=== PATIENT | male | born 1995 | race African-American/Black ===

== ENCOUNTER 2017-08-12 16:17 | Emergency (ER) | payer MEDICAID, OTHER ==
[~2017-08-12] VITALS: Ht 160 cm; Wt 54.4 kg
--- NOTE | 2017-08-12 18:18 | ED Fall/Injury ---
General Chief Complaint: Head/Cervical Problems Stated Complaint: HEAD INJ/ODD BEHAVIOR Nursing Triage Note: Child fell and hit his head Tuesday night. Mother states his bahavior has been unusual the last few days. Hx of Doubowitz syndrome. Source: patient, other, caregiver Exam Limitations: clinical condition (MR) History of Present Illness Date Seen by Provider: Aug 12, 2017 Time Seen by Provider: 18:06 Initial Comments Patient is a very pleasant 21-year-old male with chronic MR who presents with 2 of his caregivers a chief complaint that 5-6 days ago he fell down some stairs and he attends to have trouble with stairs in the past and was left unattended for just a few minutes and when they found him he had a large knot on the back of his head. They talked to their doctor's and were doing a period of observation with him. He had no nausea vomiting loss of consciousness or bleeding from anywhere. However over the next couple days the caregivers have noticed the patient has had more of his behaviors which include not sleeping as well and screaming out loud during the day as well as at night. These are his chronic behaviors that just seemed to be ant up whereas her lately the caregiver says he's been fairly mild. Patient is nonverbal for the most part but will sometimes answer yes or no. He does indicate yes when asked if his head is hurting and the caregiver notes he does still have a remnant of the hematoma on his occiput. The caregiver reports she has been applying ice packs for the first couple days and letting him sleep and rest home and giving him ibuprofen once or twice a day. She is worried about his behaviors and whether they're related to his recent head injury so they called the psychiatrist on the phone and they recommended increasing his Zyprexa from 5 mg daily at bedtime to 10 mg to help with his sleep. They have an appointment next week with the primary care physician Dr. Randle. Constitutional: No chills, No diaphoresis, No fever, No malaise, No weight gain , No weight loss Eyes: Denies Blindness, Denies Photophobia, Denies Glasses Ears, Nose, Mouth, Throat: denies ear discharge, denies nose discharge, denies epistaxis Respiratory: No cough, No short of breath, No wheezing Cardiovascular: No chest pain, No syncope Gastrointestinal: No constipation, No diarrhea, No vomiting Genitourinary: No discharge, No dysuria, No frequency, No hematuria Skin: see HPI Past Zmuxlgn-Agpnls-Argjos Hx Patient Social History Alcohol Use: Denies Use Recreational Drug Use: No Smoking Status: Never a Smoker Recent Foreign Travel: No Contact w/Someone Who Travel: No Recent Infectious Disease Expo: No Physical Exam Vital Signs Vital Sign - Last 12Hours 08/12/17 16:56 Temp 97.2 Pulse 90 Resp 20 B/P (MAP) 118/72 (87) Pulse Ox 95 O2 Delivery Room Air Capillary Refill : Less Than 3 Seconds General Appearance: WD/WN, no apparent distress HEENT: PERRL/EOMI, normal ENT inspection, TMs normal, pharynx normal, other ( negative for raccoon eyes, chaney sign or hemotympanum. He has a small remnant of a hematoma that is about gone on his occiput midline but is mildly tender to palpation.) Neck: non-tender, full range of motion, supple, normal inspection Cardiovascular: normal peripheral pulses, regular rate, rhythm, no edema Respiratory: chest non-tender, lungs clear, normal breath sounds Peripheral Pulses: 2+ Radial Pulses (R), 2+ Radial Pulses (L) Gastrointestinal: non tender, soft Back: normal inspection, no vertebral tenderness Neurologic/Psychiatric: no motor/sensory deficits, alert, normal mood/affect Skin: normal color, warm/dry Amilcar Coma Score Best Eye Response: (4) Open Spontaneously Best Verbal Response: (2) Incomprehsible Sounds (at baseline) Best Motor Response: (6) Obeys Commands Amilcar Total: 12 (this is his baseline per caregivers) Progress/Results/Core Measures Results/Orders Vital Signs/I&O Vital Sign - Last 12Hours 08/12/17 16:56 Temp 97.2 Pulse 90 Resp 20 B/P (MAP) 118/72 (87) Pulse Ox 95 O2 Delivery Room Air Blood Pressure Mean: 87 Progress Note : Time: 18:18 Progress Note Patient is at baseline with no loss of consciousness nausea vomiting. He is also at baseline has incontinence of bowel bladder. He is having no fevers or adventitious vital signs so it's likely that his increased behaviors may be related to headache secondary to his hematoma and recent fall. When I recommend they use Naprosyn [id number] with Tylenol as needed and see if that doesn' t work for him for the next week in terms of reducing the frequency or severity of his behaviors. If that is not working then they can go ahead and start Zyprexa at the higher dose and they will have follow-up appointment Tuesday of next week with their primary care physician for further management. We discussed concussion management. He is well past the observation period for head injury for possibility of a clinically significant intracranial bleed and not having any other neurologic symptoms that I can elicit on our exam. Departure Impression Impression: Primary Impression: Fall (on) (from) other stairs and steps, initial encounter Additional Impressions: Traumatic hematoma of scalp Qualified Codes: S00.03XA - Contusion of scalp, initial encounter Concussion Qualified Codes: S06.0X0A - Concussion without loss of consciousness, initial encounter Behavior disturbance Disposition: 01 HOME, SELF-CARE Condition: Stable Departure-Patient Inst. Decision time for Depature: 18:20 Referrals: ALEJO RANDLE DO (PCP/Family) Primary Care Physician Patient Instructions: Concussion, Adult (DC) Add. Discharge Instructions: For the next week use Naprosyn 2 capsules twice a day [id number] and then if he's having breakthrough evidence of a headache such as increased behaviors, vomiting, dizziness or unsteady belly on his feet give him Tylenol 1000 mg. If he has nausea give him one tablet of Zofran every 6 hours as needed. Keep your follow-up appointment next week with your primary care physician for further evaluation. If his symptoms get worse or if he has decreased level of consciousness or wake up or back right ring him back to the ER immediately. When he is back to his baseline and not on any extra medications such as the Naprosyn or Tylenol or Zofran then he is concussion free. For the period that he has a concussion however he should avoid head trauma as much as possible. If he does have any symptoms of a concussion after you have treated him with appropriate medication then you should also let him have something to drink and go lay down and get some sleep for a few hours. All discharge instructions reviewed with patient and/or family. Voiced understanding. Scripts Ondansetron (Ondansetron Odt) 4 Mg Tab.rapdis 4 MG PO Q6H Y for NAUSEA/VOMITING, #8 TAB 0 Refills Prov: ROSA MONTOYA 08/12/17 Copy Copies To 1: ALEJO RANDLE TITUS J Aug 12, 2017 18:18
[2017-08-12] MEDS ORDERED: ONDA4TAB11 PO (18:24)
[2017-08-12 18:33] VITALS: BP 116/74
== END 2017-08-12 18:33 | disposition home or self-care (01) ==
LOC: ER 16:20
DX: S06.0X0A Concussion without loss of consciousness, initial encounter (principal); W10.9XXA Fall (on) (from) unspecified stairs and steps, initial encounter
CPT/HCPCS: 99282

== ENCOUNTER 2017-10-10 16:51 | Emergency (ER) | payer MEDICAID ==
[~2017-10-10] VITALS: Ht 154.9 cm; Wt 49.9 kg
[~2017-10-10 16:51] MED LIST: ONDA4TAB11 PO
[2017-10-10] MEDS ORDERED: ESCI5TAB12 (17:39)
[2017-10-10] MEDS ORDERED: OLAN15TA19 (17:39)
[2017-10-10] MEDS ORDERED: METF500T4 (17:39)
[2017-10-10] MEDS ORDERED: LEVO125T6 (17:39)
[2017-10-10] MEDS ORDERED: CARB100T6 (17:39)
[2017-10-10] MEDS ORDERED: TRAZ-28 (17:39)
[2017-10-10] MEDS ORDERED: VALP250C3 (17:39)
--- NOTE | 2017-10-10 18:19 | ED GU-Male ---
General Chief Complaint: General Problems/Pain Stated Complaint: HAS NOT USED BATHROOM ALL DAY/ NO APPETITE Nursing Triage Note: AMBULATED TO TRIAGE WITH COUSIN/[employer]AYNE [employer]IDER WORKER. COUSIN STATES HE HAS NOT URINATED SINCE LAST NOC IN THE MIDDLE OF THE NOC. HAS NOT ATE TODAY BUT HAS BEEN DRINKING FLUIDS WITHOUT DIFFICULTY. Source: patient Exam Limitations: clinical condition (MR) History of Present Illness Date Seen by Provider: Oct 10, 2017 Time Seen by Provider: 18:07 Initial Comments Patient presents to the ER by private conveyance with his cousin/Wyatt worker. Patient is fairly nonverbal and known to this provider from previous encounters. His cousin gives a history that the patient has been unable to urinate for the last day. This is unlike him and he is usually incontinent using his briefs couple times a day. He says they've been giving the patient water, flavored drinks etc. and the patient's been drinking them but has not been able to urinate. He also says the patient has a chronic history of constipation for which she uses MiraLAX and some kind of a laxative tablet daily as well as they've had to use enemas in the past. He thinks the last time the patient had a large bowel movement was last week sometime. Says the patient does not really tell them if he's ever and pain with a no is not been subjectively feverish, chills, sweats, nausea or vomiting. He has no history of abdominal surgeries or surgeries. No history of kidney stones. Allergies and Home Medications Allergies Coded Allergies: No Known Drug Allergies (Unverified , 10/10/17) Patient Home Medication List Home Medication List Reviewed: Yes Constitutional: see HPI (difficult to obtain a complete review of systems secondary to nonverbal status of the patient.), No chills, No diaphoresis, No fever EENTM: No hoarseness, No nose congestion Respiratory: No cough, No hemoptysis Gastrointestinal: No abdominal pain, constipation (chronic), No nausea Genitourinary: denies discharge, denies hematuria Skin: No pruritus, No rash Past Jhpjxzx-Xojddu-Tkclyc Hx Patient Social History Alcohol Use: Denies Use Recreational Drug Use: No Smoking Status: Never a Smoker Recent Foreign Travel: No Contact w/Someone Who Travel: No Recent Infectious Disease Expo: No Recent Hopitalizations: No Surgeries History of Surgeries: No Respiratory History of Respiratory Disorde: No Cardiovascular History of Cardiac Disorders: Yes Cardiac Disorders: Hypertension Neurological History of Neurological Disord: Yes (MR) Genitourinary History of Genitourinary Disor: No Gastrointestinal History of Gastrointestinal Di: No Musculoskeletal History of Musculoskeletal Dis: No Endocrine History of Endocrine Disorders: Yes Endocrine Disorders: Diabetes, Insulin dep Cancer History of Cancer: No Psychosocial History of Psychiatric Problem: No Integumentary History of Skin or Integumenta: No Physical Exam Vital Signs Vital Signs - First Documented 10/10/17 17:35 Temp 96.8 Pulse 83 Resp 18 B/P (MAP) 114/67 (83) Pulse Ox 97 Capillary Refill : Less Than 3 Seconds General Appearance: WD/WN, no apparent distress HEENT: PERRL/EOMI, normal ENT inspection, pharynx normal (oropharynx is mildly dry) Neck: non-tender, normal inspection Cardiovascular: normal peripheral pulses, regular rate, rhythm, no edema, no murmur Respiratory: chest non-tender, lungs clear, normal breath sounds, no respiratory distress, no accessory muscle use Gastrointestinal: normal bowel sounds, soft, no organomegaly, No distended, tenderness (mild tenderness in the suprapubic region), other (no palpable bladder. Bowels are palpable and full but not distended.) Back: normal inspection, no CVA tenderness, no vertebral tenderness Extremities: non-tender, normal capillary refill Neurologic/Psychiatric: alert, normal mood/affect Skin: normal color, warm/dry Progress/Results/Core Measures Suspected Sepsis Recent Fever Within 48 Hours: No Infection Criteria Present: None New/Unexplained Altered Menta: No Sepsis Screen: No Definite Risk Sepsis Diagnosis: SIRS Temperature:96.8 Pulse: 83 Respiratory Rate: 18 Blood Pressure 114 /67 Mean: 83 Results/Orders Lab Results Laboratory Tests Test 10/10/17 18:30 Range/Units Urine Color YELLOW Urine Clarity CLEAR Urine pH 7 5-9 Urine Specific [place] 1.010 L 1.016-1.022 Urine Protein NEGATIVE NEGATIVE Urine Glucose (UA) 1+ H NEGATIVE Urine Ketones 1+ H NEGATIVE Urine Nitrite NEGATIVE NEGATIVE Urine Bilirubin NEGATIVE NEGATIVE Urine Urobilinogen 1 NORMAL MG/DL Urine Leukocyte Esterase 1+ H NEGATIVE Urine RBC (Auto) NEGATIVE NEGATIVE Urine RBC NONE /HPF Urine WBC 0-2 /HPF Urine Squamous Epithelial Cells 0-2 /HPF Urine Crystals NONE /LPF Urine Bacteria NONE /HPF Urine Casts NONE /LPF Urine Mucus NEGATIVE /LPF Urine Culture Indicated NO My Orders Orders - ROSA MONTOYA Straight Cath For Spec.-Adult (10/10/17 18:13) Ua Culture If Indicated (10/10/17 18:13) Abdomen/Kub 1view (10/10/17 18:21) Vital Signs/I&O Vital Sign - Last 12Hours 10/10/17 17:35 Temp 96.8 Pulse 83 Resp 18 B/P (MAP) 114/67 (83) Pulse Ox 97 Capillary Refill : Less Than 3 Seconds Blood Pressure Mean: 83 Progress Note #1: Time: 18:19 Progress Note Patient seems to be using a lot of laxatives at baseline with not a lot of success having bowel movements the last few days. It's possible he is gotten dehydrated. Urinary tract infection is also possible. He is not showing any evidence of systemic infection such as fevers, tachycardia or dysuria. He has however sensitive over his suprapubic region. We discussed using a sound versus just doing it in and out to capture urine sample and did be more advantage to getting a urine sample and letting him urinate and his brief. We will also tell us how much urine is retained in the bladder if any at all. We'll encourage him to continue drinking and he has a bottle in his hand that is empty in the ER. We 'll also get a flat plate look at his bowels. Progress Note #2: Time: 19:13 Progress Note Communicated the findings of moderate constipation and patient's spontaneous urinating to the mother over the phone and we recommended that they increase the MiraLAX over the next week and follow-up with primary care physician as needed. She is okay with this plan. They do have some enemas but they do need a refill on the MiraLAX so we will send that up to [facility]. Diagnostic Imaging Diagonstic Imaging: Xray Plain Films/CT/US/NM/MRI: abdomen (1v) Comments [facility] [place], [place] NAME: LAURA DE LA CRUZ [facility] REC#: [id number] PT STATUS: REG ER : 1995 PHYSICIAN: ROSA MONTOYA MD ADMIT DATE: 10/10/17/ER Draft Date of Exam:10/10/17 ABDOMEN/KUB 1VIEW INDICATION: Abdominal pain. FINDINGS: There is a moderate amount of retained fecal material likely reflecting some degree of constipation. Bowel gas pattern is otherwise nonspecific. There are no abnormal abdominal calcifications. The osseous structures are unremarkable. IMPRESSION: Moderate amount of retained fecal material likely reflecting some degree of constipation, otherwise nonspecific bowel gas pattern. Dictated on workstation # [id number] Dict: 10/10/17 1855 Trans: 10/10/17 185 TREMAINE [id number] Interpreted by: NIKKI OH MD Electronically signed by: Reviewed: Reviewed by Me Departure Impression Impression: Primary Impression: Constipation Qualified Codes: K59.04 - Chronic idiopathic constipation Disposition: HOME, SELF-CARE Condition: Improved Departure-Patient Inst. Decision time for Depature: 19:14 Referrals: ALEJO ARNDLE DO (PCP/Family) Primary Care Physician Patient Instructions: Constipation, Adult (DC) Add. Discharge Instructions: Increase your MiraLAX dose by up to 4 times a day. One capful of the powder in 8 ounces of whatever he wants to drink. Avoid sugary drinks such as soda, juice. Use sugar-free things like crystallite, water, tea. You can also use an enema today and if you're not having good effort to get him to have plenty of bowel movements you can have him follow-up with the primary care physician for other ideas for his management of constipation. All discharge instructions reviewed with patient and/or family. Voiced understanding. Scripts Polyethylene Glycol 3350 (Miralax) 17 Gm Powd.pack 17 GM PO QID Y for CONSTIPATION-1ST LINE, #1 EACH 0 Refills Prov: ROSA MONTOYA 10/10/17 Copy Copies To 1: ALEJO RANDLE TITUS J Oct 10, 2017 18:19
[2017-10-10 18:38] LABS: BILIRUBIN,URINE NEGATIVE (NEGATIVE); CLARITY,URINE CLEAR; COLOR,URINE YELLOW; GLUCOSE, URINE (UA) 1+ (NEGATIVE); KETONES,URINE 1+ (NEGATIVE); LEUKOCYTE ESTERASE ,URINE 1+ (NEGATIVE); NITRITE,URINE NEGATIVE (NEGATIVE); PH,URINE 7 (5-9); PROTEIN,URINE NEGATIVE (NEGATIVE); UROBILINOGEN,URINE 1 MG/DL (NORMAL)
[2017-10-10 18:46] LABS: SQUAMOUS EPITHELIAL CELL,UR 0-2 /HPF; WBC,URINE 0-2 /HPF
--- NOTE | 2017-10-10 18:57 | Diagnostic Imaging Report ---
INDICATION: Abdominal pain. FINDINGS: There is a moderate amount of retained fecal material likely reflecting some degree of constipation. Bowel gas pattern is otherwise nonspecific. There are no abnormal abdominal calcifications. The osseous structures are unremarkable. IMPRESSION: Moderate amount of retained fecal material likely reflecting some degree of constipation, otherwise nonspecific bowel gas pattern. Dictated by: Dictated on workstation # [id number]
[2017-10-10] MEDS ORDERED: POLY17PO6 PO (19:16)
[2017-10-10 19:22] VITALS: BP 116/71
== END 2017-10-10 19:20 | disposition home or self-care (01) ==
LOC: EDUNIT# 16:51 → ER 16:52
DX: K59.09 Other constipation (principal); E11.9 Type 2 diabetes mellitus without complications; I10 Essential (primary) hypertension; Z86.59 Personal history of other mental and behavioral disorders
CPT/HCPCS: 74018; 81000; 99283

== ENCOUNTER → 2018-08-04 | Outpatient (CLI) | payer MEDICAID ==
[~2018-08-04] MED LIST changes: +CARB100T6; +ESCI5TAB12; +LEVO125T6; +METF-397; +OLAN15TA19; +POLY17PO6 PO; +TRAZ-189; +VALP250C3
--- NOTE | 2018-08-04 11:24 | Diagnostic Imaging Report ---
INDICATION: Left elbow swelling. TIME OF EXAMINATION: 10:22 AM. TECHNIQUE: Three views of the left elbow were obtained. FINDINGS: The radial head appears to show slight posterior subluxation in relation to the capitellum on the lateral view. No phill dislocation is seen. No elbow joint effusion is identified. There is some mild soft tissue swelling posteriorly. No fracture is seen. IMPRESSION: There are findings suggestive of minimal radial head subluxation posteriorly as well as posterior soft tissue swelling. No other abnormality is detected. Dictated by: Dictated on workstation # [id number]
== END ==
LOC: RAD 09:34
PROVIDERS: ATTEND Family Medicine
DX: S59.902A Unspecified injury of left elbow, initial encounter (principal)
CPT/HCPCS: 73080

== ENCOUNTER → 2018-08-17 | Outpatient (CLI) | payer MEDICAID ==
--- NOTE | 2018-08-17 17:38 | Diagnostic Imaging Report ---
INDICATION: Left elbow pain. FINDINGS: Three views of left elbow show no fracture, dislocation or pathologic effusion. IMPRESSION: Negative left elbow. Dictated by: Dictated on workstation # [id number]
== END ==
LOC: RAD 17:15
PROVIDERS: ATTEND Family Medicine
DX: M25.422 Effusion, left elbow (principal)
CPT/HCPCS: 73080

== ENCOUNTER 2018-10-06 20:46 | Emergency (ER) | payer MEDICAID ==
[~2018-10-06] VITALS: Ht 154.9 cm; Wt 54.4 kg
--- NOTE | 2018-10-06 21:12 | ED Upper Extremity ---
General Chief Complaint: Upper Extremity Stated Complaint: ARM SWELLING Nursing Triage Note: right upper arm swelling, no known injury Nursing Sepsis Screen: No Definite Risk Source: patient, family Exam Limitations: no limitations History of Present Illness Date Seen by Provider: Oct 06, 2018 Time Seen by Provider: 21:10 Initial Comments This developmentally disabled gentleman comes to the emergency room by mother with reports of right arm swelling since July without known injury. He's had a couple of x-rays without finding. He's tried around of antibiotics but again without any improvement. No fevers. Onset: just prior to arrival Severity: moderate Pain/Injury Location: right elbow Method of Injury: unknown Modifying Factors: Worse With Movement Allergies and Home Medications Allergies Coded Allergies: No Known Drug Allergies (Unverified , 10/10/17) Home Medications Polyethylene Glycol 3350 17 Gm Powd.pack, 17 GM PO QID PRN for CONSTIPATION-1ST LINE Prescribed by: ROSA MONTOYA on 10/10/17 191 Patient Home Medication List Home Medication List Reviewed: Yes Review of Systems Constitutional: see HPI; No chills, No fever EENTM: see HPI Respiratory: no symptoms reported Cardiovascular: no symptoms reported Genitourinary: no symptoms reported Musculoskeletal: see HPI Skin: see HPI Psychiatric/Neurological: No Symptoms Reported Past Zfdntmm-Flpvgd-Udzenh Hx Patient Social History Alcohol Use: Denies Use Recreational Drug Use: No Smoking Status: Never a Smoker 2nd Hand Smoke Exposure: No Recent Foreign Travel: No Contact w/Someone Who Travel: No Recent Infectious Disease Expo: No Recent Hopitalizations: No Immunizations Up To Date Tetanus Booster (TDap): Unknown Seasonal Allergies Seasonal Allergies: No Past Medical History Surgeries: No Respiratory: No Cardiac: Yes Hypertension Neurological: Yes (MR) Seizure Disorder Genitourinary: No Gastrointestinal: No Musculoskeletal: No Endocrine: Yes Diabetes, Insulin dep HEENT: No Cancer: No Psychosocial: No Integumentary: No Blood Disorders: No Physical Exam Vital Signs Vital Signs - First Documented 10/06/18 20:52 Temp 97.1 Pulse 83 Resp 18 B/P (MAP) 135/91 (106) Pulse Ox 98 O2 Delivery Room Air Capillary Refill : Less Than 3 Seconds Height, Weight, BMI Height: 5'1.00" Weight: 120lbs. oz. 54.133700xw; BMI Method:Stated General Appearance: WD/WN, no apparent distress HEENT: PERRL/EOMI, normal ENT inspection Respiratory: no respiratory distress, no accessory muscle use Shoulder: normal inspection, non-tender Elbow/Forearm: Right, soft tissue tenderness (does extend and flex the arm at the elbow and he is using the arm to hold and drink a bottle of Diet Coke.), swelling Wrist: Yes normal inspection, Yes non-tender Hand: normal inspection, non-tender Neurologic/Psychiatric: alert, normal mood/affect, oriented x 3 Skin: normal color, warm/dry Progress/Results/Core Measures Results/Orders Lab Results Laboratory Tests Test 10/06/18 21:27 Range/Units White Blood Count 11.3 H 4.3-11.0 10^3/uL Red Blood Count 3.31 L 4.35-5.85 10^6/uL Hemoglobin 11.1 L 13.3-17.7 G/DL Hematocrit 33 L 40-54 % Mean Corpuscular Volume 99 80-99 FL Mean Corpuscular Hemoglobin 34 25-34 PG Mean Corpuscular Hemoglobin Concent 34 32-36 G/DL Red Cell Distribution Width 12.6 10.0-14.5 % Platelet Count 459 H 130-400 10^3/uL Mean Platelet Volume 8.5 7.4-10.4 FL Neutrophils (%) (Auto) 47 42-75 % Lymphocytes (%) (Auto) 35 12-44 % Monocytes (%) (Auto) 17 H 0-12 % Eosinophils (%) (Auto) 1 0-10 % Basophils (%) (Auto) 0 0-10 % Neutrophils # (Auto) 5.3 1.8-7.8 X 10^3 Lymphocytes # (Auto) 3.9 1.0-4.0 X 10^3 Monocytes # (Auto) 1.9 H 0.0-1.0 X 10^3 Eosinophils # (Auto) 0.2 0.0-0.3 10^3/uL Basophils # (Auto) 0.0 0.0-0.1 10^3/uL D-Dimer 1.87 H 0.00-0.49 UG/ML My Orders Orders - RIP GARCIA APRN Hydrocodone/Apap 5/325 Tablet (Lortab 5 (10/06/18 21:15) Cbc With Automated Diff (10/06/18 21:06) Comprehensive Metabolic Panel (10/06/18 21:06) Erythrocyte Sedimentation Rate (10/06/18 21:06) Hs C Reactive Protein (10/06/18 21:06) Fibrin Degradation Products (10/06/18 21:06) Medications Given in ED Current Medications Medications Dose Ordered Sig/Celetse Route Start Time Stop Time Status Last Admin Dose Admin Acetaminophen/ Hydrocodone Bitart 1 tab ONCE ONCE PO 10/06/18 21:15 10/06/18 21:16 DC 10/06/18 21:40 1 TAB Vital Signs/I&O 10/06/18 20:52 Temp 97.1 Pulse 83 Resp 18 B/P (MAP) 135/91 (106) Pulse Ox 98 O2 Delivery Room Air Blood Pressure Mean: 106 Departure Communication (Admissions) 2413-I will prescribe an antibiotic. Given the elevated d-dimer I will have him return to the emergency room tomorrow to obtain an ultrasound venous right upper extremity. I will not empirically place him on anticoagulation without definitive diagnosis of deep vein thrombosis due to his behavioral disorders and possibility of injury resulting in significant bleeding. He should return to the emergency room tomorrow for venous right upper extremity ultrasound. Impression Primary Impression: Swelling of right elbow Disposition: HOME, SELF-CARE Condition: Stable Departure-Patient Inst. Decision time for Depature: 21:51 Referrals: ALEJO RANDLE DO (PCP/Family) Primary Care Physician Patient Instructions: NO INSTRUCTIONS GIVEN Add. Discharge Instructions: 1. Return to ER for any concerns 2. Follow-up with your doctor next week 3. Antibiotics as directed All discharge instructions reviewed with patient and/ or family. Voiced understanding. Scripts Amoxicillin/Potassium Clav (Augmentin 875-125 Tablet) 1 Each Tablet 1 EACH PO BID, #20 TAB Prov: RIP GARCIA APRN 10/06/18 RIP GARCIA APRN Oct 06, 2018 21:12
[2018-10-06] MEDS ORDERED: HYDROcodone/APAP 5 MG/325 MG (LORTAB) TAB PO ONE (21:15)
[2018-10-06 21:32] LABS: BASOPHILS % (AUTO) 0 % (0-10); EOSINOPHILS # (AUTO) 0.2 10^3/uL (0.0-0.3); EOSINOPHILS % (AUTO) 1 % (0-10); HEMATOCRIT 33 % (40-54); HEMOGLOBIN 11.1 G/DL (13.3-17.7); LYMPHOCYTES # (AUTO) 3.9 X 10^3 (1.0-4.0); LYMPHOCYTES % (AUTO) 35 % (12-44); MEAN CORPUSCULAR HEMOGLOBIN 34 PG (25-34); MEAN CORPUSCULAR HGB CONC 34 G/DL (32-36); MEAN CORPUSCULAR VOLUME 99 FL (80-99); MEAN PLATELET VOLUME 8.5 FL (7.4-10.4); MONOCYTES # (AUTO) 1.9 X 10^3 (0.0-1.0); MONOCYTES % (AUTO) 17 % (0-12); NEUTROPHILS # (AUTO) 5.3 X 10^3 (1.8-7.8); NEUTROPHILS % (AUTO) 47 % (42-75); PLATELET COUNT 459 10^3/uL (130-400); RED CELL DISTRIBUTION WIDTH 12.6 % (10.0-14.5); WHITE BLOOD COUNT 11.3 10^3/uL (4.3-11.0)
[2018-10-06 21:51] LABS: ALANINE AMINOTRANSFERASE 25 U/L (0-55); ALBUMIN 3.8 GM/DL (3.2-4.5); ALKALINE PHOSPHATASE 184 U/L (40-136); BILIRUBIN,TOTAL 0.3 MG/DL (0.1-1.0); BUN/CREATININE RATIO 13; CALCIUM 9.2 MG/DL (8.5-10.1); CARBON DIOXIDE 27 MMOL/L (21-32); CHLORIDE 102 MMOL/L (98-107); CREATININE SERUM 0.85 MG/DL (0.60-1.30); GFR ESTIMATED > 60; GLUCOSE 133 MG/DL (70-105); POTASSIUM 4.1 MMOL/L (3.6-5.0); SODIUM 140 MMOL/L (135-145)
[2018-10-06] MEDS ORDERED: AMOX-358 PO (21:52)
[2018-10-06 21:56] VITALS: BP 135/91
[2018-10-06 21:59] LABS: ERYTHROCYTE SEDIMENTATION RATE 68 MM/HR (0-15)
== END 2018-10-06 22:06 | disposition home or self-care (01) ==
LOC: EDUNIT# 20:46 → ER 20:47
DX: M25.421 Effusion, right elbow (principal); I10 Essential (primary) hypertension; G40.909 Epilepsy, unspecified, not intractable, without status epilepticus; E11.9 Type 2 diabetes mellitus without complications
CPT/HCPCS: 36415; 80053; 85025; 85379; 85652; 86141; 99283

== ENCOUNTER → 2018-10-08 | Outpatient (CLI) | payer MEDICAID ==
[~2018-10-08] MED LIST changes: +AMOX-358 PO
--- NOTE | 2018-10-08 11:39 | Diagnostic Imaging Report ---
INDICATION: Right forearm pain. COMPARISON: None. FINDINGS: Two views of the right forearm demonstrate no obvious fracture or dislocation. Soft tissue swelling is present. There is no underlying joint effusion or foreign body. IMPRESSION: No fracture or dislocation. Dictated by: Dictated on workstation # [id number]
--- NOTE | 2018-10-08 12:05 | Diagnostic Imaging Report ---
INDICATION: Right elbow pain and swelling COMPARISON: None FINDINGS: Two views of the right elbow demonstrate no obvious fracture or dislocation. No bony erosion is seen. There is no joint effusion. IMPRESSION: No fracture or dislocation Dictated by: Dictated on workstation # [id number]
== END ==
LOC: RAD 10:48
PROVIDERS: ATTEND Family Medicine
DX: M25.421 Effusion, right elbow (principal); M79.631 Pain in right forearm
CPT/HCPCS: 73080; 73090

== ENCOUNTER 2019-01-13 21:57 | Emergency (ER) | payer MEDICAID ==
[~2019-01-13] VITALS: Ht 154.9 cm; Wt 68.0 kg
[~2019-01-13 21:57] MED LIST changes: -TRAZ-189; +TRAZ-222
--- NOTE | 2019-01-13 22:28 | ED Head Injury ---
General Chief Complaint: Trauma-Non Activation Stated Complaint: FELL AND HIT FACE Nursing Triage Note: fell into tv stand and hit forehead and bridge of nosecausing laceration Source: patient, family (mother) Exam Limitations: no limitations History of Present Illness Date Seen by Provider: Jan 13, 2019 Time Seen by Provider: 22:05 Initial Comments 23-year-old patient presents to the emergency room for complaint of laceration to the nose and forehead after falling into a TV stand. Mother denies patient losing consciousness, changes in behavior, or vomiting. History difficult d/t patient being MR and having schizophrenia. Location Injury Occurred: home Occurred: just prior to arrival Method of Injury: fell Pain/Injuries: laceration to the forehead and nose Loss of Consciousness: no loss of consciousness Allergies and Home Medications Allergies Coded Allergies: No Known Drug Allergies (Unverified , 01/13/19) Home Medications Amoxicillin/Potassium Clav 1 Each Tablet, 1 EACH PO BID Prescribed by: RIP GARCIA on 10/06/182151 Polyethylene Glycol 3350 17 Gm Powd.pack, 17 GM PO QID PRN for CONSTIPATION-1ST LINE Prescribed by: ROSA MONTOYA on 10/10/17 1916 Patient Home Medication List Home Medication List Reviewed: Yes Review of Systems Review of Systems Constitutional: no symptoms reported Eyes: No Symptoms Reported Ears, Nose, Mouth, Throat: see HPI Gastrointestinal: No vomiting Musculoskeletal: no symptoms reported Skin: see HPI unable to obtain ROS from patient d/t MR and schizophrenia. ROS by mother. All Other Systems Reviewed Negative Unless Noted: Yes (Negative excepted noted.) Past Eouncof-Bumtdx-Syeulv Hx Past Med/Social Hx: Reviewed Nursing Past Med/Soc Hx Patient Social History 2nd Hand Smoke Exposure: No Recent Foreign Travel: No Contact w/Someone Who Travel: No Recent Hopitalizations: No Immunizations Up To Date Tetanus Booster (TDap): Unknown Seasonal Allergies Seasonal Allergies: No Past Medical History Surgeries: No Respiratory: No Cardiac: Yes Hypertension Neurological: Yes (MR) Seizure Disorder Genitourinary: No Gastrointestinal: No Musculoskeletal: No Endocrine: Yes Diabetes, Insulin dep HEENT: No Cancer: No Psychosocial: No Integumentary: No Blood Disorders: No Family Medical History Reviewed Nursing Family Hx No Pertinent Family Hx Physical Exam Vital Signs Vital Signs - First Documented Capillary Refill : Height, Weight, BMI Height: 5'1.00" Weight: 120lbs. oz. [id number]; BMI Method:Stated Progress/Results/Core Measures Results/Orders Vital Signs/I&O 01/13/19 01/13/19 22:05 22:05 Temp 96.7 96.7 Pulse 93 93 Resp 20 20 B/P (MAP) 159/120 (133) 159/120 (133) Pulse Ox 94 94 Departure Impression Primary Impression: Minor head injury without loss of consciousness Additional Impressions: Laceration of nose Laceration of forehead without complication Disposition: HOME, SELF-CARE Condition: Improved Departure-Patient Inst. Decision time for Depature: 22:26 Referrals: ALEJO RANDLE DO (PCP/Family) Primary Care Physician Patient Instructions: Minor Head Injury (DC), Laceration Repair With Glue (DC) Add. Discharge Instructions: All discharge instructions reviewed with patient and/or family. Voiced understanding. Continue usual home medications. Tylenol qguo-zyg-vwunaip as directed for pain. Ice pack as needed for pain and swelling. Avoid scrubbing the laceration repair. We will dissolve on its own. Follow-up with your primary care provider for recheck as an outpatient this week. Call Tuesday for appointment time. Return in the emergency department immediately for worsened pain, redness, fever, drainage, changes in behavior, vomiting, or any other concerns. EASTON MADDEN Jan 13, 2019 22:27
[2019-01-13 22:30] VITALS: BP 137/100
--- NOTE | 2019-01-13 22:36 | NUR ---
Contacted nurse Baires for pt report and request pt transfer back to facility.
== END 2019-01-13 22:30 | disposition home or self-care (01) ==
LOC: EDUNIT# 21:57 → ER 21:59
DX: S09.90XA Unspecified injury of head, initial encounter (principal); S01.21XA Laceration without foreign body of nose, initial encounter; S01.81XA Laceration without foreign body of other part of head, initial encounter; G40.909 Epilepsy, unspecified, not intractable, without status epilepticus; E11.9 Type 2 diabetes mellitus without complications; W01.118A Fall on same level from slipping, tripping and stumbling with subsequent striking against other sharp object, initial encounter
CPT/HCPCS: 99282

== ENCOUNTER 2019-02-13 12:26 | Observation (INO) | payer MEDICAID ==
[~2019-02-13] VITALS: Ht 154.9 cm; Wt 48.1 kg
[~2019-02-13 12:26] MED LIST changes: -CARB100T6; +CARB100T6 PO; -ESCI5TAB12; +ESCI5TAB12 PO; -METF-397; +METF-397 PO; -TRAZ-222; +TRAZ-222 PO; -VALP250C3; +VALP250C3 PO; +ZIPRASIDONE 20 MG INJ (GEODON) VIAL IM ONE
[2019-02-13] MEDS ORDERED: ZIPRASIDONE 20 MG INJ (GEODON) VIAL IM ONE ×3 (12:27→14:00)
[2019-02-13] MEDS ORDERED: WATER (STERILE) FOR INJECTION 10 ML ONE (12:27)
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
[2019-02-13 13:32] LABS: BASOPHILS % (AUTO) 0 % (0-10); EOSINOPHILS # (AUTO) 0.1 10^3/uL (0.0-0.3); EOSINOPHILS % (AUTO) 2 % (0-10); HEMATOCRIT 38 % (40-54); HEMOGLOBIN 12.7 G/DL (13.3-17.7); LYMPHOCYTES % (AUTO) 41 % (12-44); MEAN CORPUSCULAR HEMOGLOBIN 33 PG (25-34); MEAN CORPUSCULAR HGB CONC 34 G/DL (32-36); MEAN CORPUSCULAR VOLUME 97 FL (80-99); MEAN PLATELET VOLUME 8.6 FL (7.4-10.4); MONOCYTES # (AUTO) 0.6 X 10^3 (0.0-1.0); MONOCYTES % (AUTO) 12 % (0-12); NEUTROPHILS # (AUTO) 2.2 X 10^3 (1.8-7.8); NEUTROPHILS % (AUTO) 44 % (42-75); PLATELET COUNT 216 10^3/uL (130-400); RED CELL DISTRIBUTION WIDTH 13.1 % (10.0-14.5); WHITE BLOOD COUNT 4.9 10^3/uL (4.3-11.0)
[2019-02-13 13:51] LABS: ALANINE AMINOTRANSFERASE 79 U/L (0-55); ALBUMIN 3.9 GM/DL (3.2-4.5); ALKALINE PHOSPHATASE 154 U/L (40-136); BILIRUBIN,TOTAL 0.3 MG/DL (0.1-1.0); BUN/CREATININE RATIO 18; CALCIUM 9.3 MG/DL (8.5-10.1); CARBON DIOXIDE 25 MMOL/L (21-32); CHLORIDE 103 MMOL/L (98-107); CREATININE SERUM 0.89 MG/DL (0.60-1.30); GFR ESTIMATED > 60; GLUCOSE 147 MG/DL (70-105); POTASSIUM 3.8 MMOL/L (3.6-5.0); SALICYLATE < 5.0 MG/DL (5.0-20.0); SODIUM 142 MMOL/L (135-145); TOTAL PROTEIN 7.7 GM/DL (6.4-8.2)
[2019-02-13 14:01] LABS: ACETAMINOPHEN < 10 UG/ML (10-30)
--- NOTE | 2019-02-13 14:23 | NUR ---
LEFT ANKLE AND RIGHT WRIST REMOVED FROM RESTRAINTS FOR RANGE OF MOTION. PT GIVEN CRACKERS AND HYDRATION AT THIS TIME.
[2019-02-13] MEDS ORDERED: OLAN20TA34 PO ×2 (14:27)
[2019-02-13] MEDS ORDERED: OLAN10TA3 PO (14:27)
[2019-02-13] MEDS ORDERED: CARB100T6 PO (14:27)
[2019-02-13] MEDS ORDERED: OLAN5TAB3 PO (14:27)
[2019-02-13] MEDS ORDERED: DOCU100C37 PO (14:28)
[2019-02-13] MEDS ORDERED: IBUP-2055 PO (14:29)
[2019-02-13] MEDS ORDERED: LORazepam INJ 2 MG/ML (ATIVAN) VIAL ONE (14:30)
--- NOTE | 2019-02-13 14:39 | NUR ---
SPOKE WITH PTS MOTHER ( SHE IS HIS CAREGIVER) , SHE HAD ALL HIS BOTTLES BUT WE ALSO WENT THRU THE EXT MED HISTORY TO COMPLETE THE MED REC. NOTEABLE CHANGES: PT IS NO LONGER ON OLANZAPINE 15MG OLANZAPINE DOSES: 20MG- 1/2 T QAM AND THEN A SECOND DOSE 6 HOURS LATER 5MG- 1 T HS 10MG- 1 T AT 10PM TRAZODONE 50M/2 T TID METFORMIN 500: 1/2 T QAM OTC MEDS: STOOL SOFTNER: 1 BID MIRALAX: 1 CAPFUL PRN IBUPROFEN 200M T Q 6 H PRN
--- NOTE | 2019-02-13 14:43 | NUR ---
PT OFFERED THE RESTROOM AND CHECKED TO SEE IF PT DEPENDS IS WET.
--- NOTE | 2019-02-13 14:43 | NUR ---
PT HAS INCREASED AGITATION AND SPITTING AND THROWING HIS DRINK. PT RESTRAINED IN 5 POINT AGAIN AT THIS TIME.
[2019-02-13] MEDS ORDERED: LORazepam INJ 2 MG/ML (ATIVAN) VIAL IM ONE (14:45)
--- NOTE | 2019-02-13 14:45 | NUR ---
Pt's mother, Katerina, was welcoming the suction dredge dumping supervisor support. She said she has cared for the pt throughout his life, but is now planning to go back to school and realizes she needs to trust God by transitioning the pt to a residential home for care. She demonstrates strong and loving relationship with the pt. Pt's father, Jaren, visited for about 30 minutes. Katerina described that earlier this year she moved out and from her , and her mother supported her financially in this transitioned. She described her mom as her best friend. Her mother, father, and only brother since February 2018. Katerina said her father of cancer in February and her brother was murdered a week later. Her mother unexpectedly early this year. Katerina is Spiritual, and believes God's guidance and help has strengthened and led her through many trials, and given her love for others even when they did not treat her well. She demonstrates forgiveness, compassion, and a desire to do what is in the pt's best interest. The pt was heard crying out during our conversation. The nurse asked what it meant that he was rubbing his chest; Katerina said that means he is hungry. Katerina told the risk tech that she gives him ibuprofen when he continually yells out because he cannot tell her he has a headache. Offered Katerina coffee, and provided caregiver emotional support through compassionate understanding and active listening.
[2019-02-13 16:29] LABS: BILIRUBIN,URINE NEGATIVE (NEGATIVE); CLARITY,URINE SLIGHTLY CLOUDY; GLUCOSE, URINE (UA) NEGATIVE (NEGATIVE); KETONES,URINE NEGATIVE (NEGATIVE); LEUKOCYTE ESTERASE ,URINE 2+ (NEGATIVE); NITRITE,URINE NEGATIVE (NEGATIVE); PH,URINE 6 (5-9); PROTEIN,URINE 2+ (NEGATIVE); UROBILINOGEN,URINE 4 MG/DL (NORMAL)
[2019-02-13 16:37] LABS: BACTERIA,URINE TRACE /HPF; COLOR,URINE YELLOW
[2019-02-13 16:40] LABS: AMPHETAMINE SCREEN, URINE NEGATIVE (NEGATIVE); BARBITURATE SCREEN URINE NEGATIVE (NEGATIVE); BENZODIAZEPINES SCREEN URINE NEGATIVE (NEGATIVE); CANNABINOID SCREEN, URINE NEGATIVE (NEGATIVE); COCAINE SCREEN URINE NEGATIVE (NEGATIVE); METHADONE STAT NEGATIVE (NEGATIVE); METHAMPHETAMINE SCREEN URINE S NEGATIVE (NEGATIVE); OPIATE SCREEN URINE NEGATIVE (NEGATIVE); OXYCODONE STAT NEGATIVE (NEGATIVE); PROPOXYPHENE STAT NEGATIVE (NEGATIVE); TRICYCLIC ANTIDEPRESSANTS SCRE NEGATIVE (NEGATIVE)
--- NOTE | 2019-02-13 17:23 | Diagnostic Imaging Report ---
INDICATION: Constipation. TIME OF EXAM: 5:03 p.m. FINDINGS: Supine portable radiographs of the abdomen were obtained. There is moderate stool in the rectum and sigmoid. There appears to be moderate stool in the transverse and descending colon as well. Small bowel is nondilated. No pathologic calcifications are seen. IMPRESSION: Moderate stool consistent with constipation. Dictated by: Dictated on workstation # [id number]
[2019-02-13 18:00] VITALS: BP 112/85
--- NOTE | 2019-02-13 18:07 | NUR ---
START GEODON 20 MG PO TWICE DAILY RBTO DR RANDLE 1804 02-13-19
[2019-02-13 18:15] VITALS: BP 123/77
[2019-02-13] MEDS: ZIPRASIDONE 20 MG (GEODON) CAP PO SCH (18:45)
--- NOTE | 2019-02-13 20:00 | NUR ---
PT SPITTING, KICKING AND BITING AT STAFF. THIS RN UNABLE TO DO COMPLETE PHYSICAL HEAD TO TOE ASSESSMENT.
[2019-02-13] MEDS ORDERED: LORazepam 1 MG (ATIVAN) TAB ONE (23:34)
[2019-02-13] MEDS ORDERED: LORazepam 1 MG (ATIVAN) TAB PO ONE (23:45)
[2019-02-14] MEDS ORDERED: WATER (STERILE) FOR INJECTION 10 ML ONE ×2 (00:06→19:37)
[2019-02-14] MEDS: ZIPRASIDONE 20 MG INJ (GEODON) VIAL IM PRN ×2 (00:15→21:32)
--- NOTE | 2019-02-14 02:26 | NUR ---
SEE PHYSICAL CHART FOR CONTINUATION OF 4 POINT RESTRAINTS PER E-ICU
--- NOTE | 2019-02-14 06:16 | Pulmonary Consultation ---
History of Present Illness History of Present Illness Date of Consultation 02/14/19 06:11 Time Seen by Provider: 07:02 Date of Admission History of Present Illness 23yo with hx of MR, and seizures presented to ED with severe emotional outbursts and disruptive behavior causing danger to himself and others. His medications her adjusted 3 wks ago and has been very aggressive since that time. Pt was admitted to ICU and is currently in 4 point leather restraints and sitter at bedside. Pt does not currently have an IV in. Pt received Geodon last night. He ripped his IV out. RN is afraid placing another IV will make pt more aggressive and he will just rip it out. I am consulted for pulmonary management. Allergies and Home Medications Allergies Coded Allergies: No Known Drug Allergies (Unverified , 01/13/19) Home Medications Carbamazepine 100 Mg Tab.chew, 300 MG PO HS, (Reported) Docusate Sodium 100 Mg Capsule, 100 MG PO BID, (Reported) Escitalopram Oxalate 5 Mg Tablet, 5 MG PO DAILY, (Reported) Ibuprofen 200 Mg Tablet, 200 MG PO Q6H PRN for PAIN-MILD, (Reported) Metformin HCl 500 Mg Tablet, 250 MG PO DAILY, (Reported) TAKES 1/2 OF A 500MG TAB ONCE DAILY Olanzapine 20 Mg Tablet, 10 MG PO DAILY, (Reported) A SECOND DOSE IS GIVEN 6 HOURS LATER Olanzapine 20 Mg Tablet, 10 MG PO 1400, (Reported) Olanzapine 5 Mg Tablet, 5 MG PO HS, (Reported) Olanzapine 10 Mg Tablet, 10 MG PO 2200, (Reported) Polyethylene Glycol 3350 17 Gm Powd.pack, 17 GM PO QID PRN for CONSTIPATION-1ST LINE Prescribed by: ROSA MONTOYA on 10/10/171915 Trazodone HCl 50 Mg Tablet, 25 TAB PO TID, (Reported) Valproic Acid 250 Mg Capsule, 10 ML PO TID, (Reported) Past Bijjqkc-Tivkqo-Ziurgz Hx Past Med/Social Hx: Reviewed Nursing Past Med/Soc Hx Patient Social History Alcohol Use: Denies Use Recreational Drug Use: No Smoking Status: Never a Smoker 2nd Hand Smoke Exposure: No Recent Foreign Travel: No Contact w/Someone Who Travel: No Recent Infectious Disease Expo: No Recent Hopitalizations: No Physical Abuse: No Sexual Abuse: No Mistreated: No Fear: No Immunizations Up To Date Tetanus Booster (TDap): Unknown Seasonal Allergies Seasonal Allergies: No Past Medical History Surgeries: No Respiratory: No Cardiac: Yes Hypertension 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 0.0oz. 52.000073kx; 21.7 BMI Method:Stated Exam Exam Vital Signs Date Time Temp Pulse Resp B/P (MAP) Pulse Ox O2 Delivery O2 Flow Rate FiO2 02/14/19 04:07 96.9 81 16 97 Room Air 02/14/19 01:24 97.0 80 13 96 Room Air 02/14/19 01:12 90 02/13/19 20:00 81 13 Room Air 02/13/19 19:00 81 02/13/19 18:30 87 25 Room Air 02/13/19 18:15 25 123/77 (92) Room Air 02/13/19 18:03 94 02/13/19 18:00 97.8 86 16 112/85 (94) 98 02/13/19 18:00 98 Room Air 02/13/19 17:45 76 18 0/0 (0) 94 02/13/19 12:30 83 18 103/77 (86) 97 I & O 02/14/19 07:00 Intake Total 720 ml Balance 720 ml Height & Weight Height: 5'1.00" Weight: 115lbs. 0.0oz. 52.133653ck; 21.7 BMI Method:Stated General Appearance: Other (sedate) HEENT: PERRL/EOMI, Pharynx Normal Neck: Full Range of Motion, Normal Inspection, Supple Respiratory: Chest Non Tender, No Accessory Muscle Use, No Respiratory Distress Cardiovascular: Regular Rate, Rhythm, No JVD, No Murmur Capillary Refill: Less Than 3 Seconds Gastrointestinal: normal bowel sounds, non tender, soft, no organomegaly Extremity: Normal Capillary Refill, Normal Inspection, No Pedal Edema Skin: Normal Color, Warm/Dry Lymphatic: No Adenopathy Results Lab Laboratory Tests 02/13/19 13:26 Assessment/Plan Assessment/Plan Dubowitz syndrome Psychosis/combative -Pt is currently in leather restraints - Continue deny -MONICA Rowan DO Feb 14, 2019 06:16
[2019-02-14] MEDS ORDERED: MILK OF MAGNESIA 400 MG/5 ML 30 ML UDC PO PRN (07:00)
--- NOTE | 2019-02-14 07:20 | History & Physicial ---
History of Present Illness History of Present Illness Reason for visit/HPI Patient has behavior has sugars. Patient has severe emotional problems and agitation. Patient lives at home with his mother and sister. Patient has intellectual disabilities. Patient has dubowsly syndrome. For the last 3 weeks patient has been violent. Patient can hurt himself and family and others. Patient didn't emergency room and became agitated and aggressive. Patient on the the care of psychiatry. 3 weeks ago patient had medicine change which is not working. [facility] and psych units called in [facility] notified. None of these institutions would be able to take care of patient at this time. Patient in ICU area Date of Admission Feb 13, 2019 at 16:31 Time Seen by a Provider: 07:14 I consulted on this patient on 02/14/19 07:14 Attending Physician Tobi Randle DO Admitting Physician Tobi Randle DO Consult Allergies and Home Medications Allergies Coded Allergies: No Known Drug Allergies (Unverified , 01/13/19) Home Medications Carbamazepine 100 Mg Tab.chew, 300 MG PO HS, (Reported) Docusate Sodium 100 Mg Capsule, 100 MG PO BID, (Reported) Escitalopram Oxalate 5 Mg Tablet, 5 MG PO DAILY, (Reported) Ibuprofen 200 Mg Tablet, 200 MG PO Q6H PRN for PAIN-MILD, (Reported) Metformin HCl 500 Mg Tablet, 250 MG PO DAILY, (Reported) TAKES 1/2 OF A 500MG TAB ONCE DAILY Olanzapine 20 Mg Tablet, 10 MG PO DAILY, (Reported) A SECOND DOSE IS GIVEN 6 HOURS LATER Olanzapine 20 Mg Tablet, 10 MG PO 1400, (Reported) Olanzapine 5 Mg Tablet, 5 MG PO HS, (Reported) Olanzapine 10 Mg Tablet, 10 MG PO 2200, (Reported) Polyethylene Glycol 3350 17 Gm Powd.pack, 17 GM PO QID PRN for CONSTIPATION-1ST LINE Prescribed by: ROSA MONTOYA on 10/10/171915 Trazodone HCl 50 Mg Tablet, 25 TAB PO TID, (Reported) Valproic Acid 250 Mg Capsule, 10 ML PO TID, (Reported) Patient Home Medication List Home Medication List Reviewed: Yes Past Kqdadwo-Robowc-Txuaok Hx Patient Social History Marrital Status: single Employed/Student: unemployed Alcohol Use: Denies Use Recreational Drug Use: No Smoking Status: Never a Smoker 2nd Hand Smoke Exposure: No Recent Foreign Travel: No Contact w/other who traveled: No Recent Hopitalizations: No Recent Infectious Disease Expo: No Immunizations Up To Date Tetanus Booster (TDap): Unknown Seasonal Allergies Seasonal Allergies: No Surgeries No Respiratory No Cardiovascular Yes Hypertension Neurological Yes (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, small stature, seizure dz), pituitary tumor) Developmental Disorder, Seizure Disorder Genitourinary No Gastrointestinal No Musculoskeletal No Endocrine History of Endocrine Disorders: Yes Endocrine Disorders: Diabetes, Insulin dep HEENT History of HEENT Disorders: No Cancer No Psychosocial History of Psychiatric Problem: Yes Behavioral Health Disorders: Violent Behavior Integumentary History of Skin or Integumenta: No Blood Transfusions History of Blood Disorders: No Family Medical History Significant Family History: No Pertinent Family Hx Review of Systems Constitutional: no symptoms reported EENTM: no symptoms reported Respiratory: no symptoms reported Cardiovascular: no symptoms reported Genitourinary: no symptoms reported Physical Exam Vital Signs Vital Signs - First Documented 02/13/19 02/13/19 12:30 18:00 Temp 97.8 Pulse 83 Resp 18 B/P (MAP) 103/77 (86) Pulse Ox 97 O2 Delivery Room Air Capillary Refill : Less Than 3 Seconds Height, Weight, BMI Height: 5'1.00" Weight: 113lbs. 5.0oz. 51.904767xl; 21.7 BMI Method:Stated General Appearance: No Apparent Distress, Other (Resting comfortably in asleep now) HEENT: Normal ENT Inspection Neck: Normal Inspection Respiratory: Lungs Clear, No Accessory Muscle Use, No Respiratory Distress Cardiovascular: Regular Rate, Rhythm, No Murmur Gastrointestinal: Soft Assessment/Plan Assessment and Plan Violent behavior. Intellectual disability. Diabetes. Seizures. Psychosis. dubowsky syndrome. Patient low risk for DVT. Unable to walk patient 3 times a day. Get social services specialist involved for placement Admission Diagnosis Admission Status: Observation TOBI RANDLE DO Feb 14, 2019 07:20
[2019-02-14] MEDS: LORazepam INJ 2 MG/ML (ATIVAN) VIAL IM PRN ×2 (07:36→17:50)
[2019-02-14] MEDS ORDERED: CEFDINIR 300 MG (OMNICEF) CAP PO SCH (09:00)
--- NOTE | 2019-02-14 09:00 | NUR ---
10 ml of 250mg/5ml valproic acid given from home medications with new order place for pharmacy to supply after this am dose
[2019-02-14] MEDS: ZIPRASIDONE 20 MG (GEODON) CAP PO SCH ×2 (09:36→16:37)
[2019-02-14] MEDS: cefTRIAXone FOR IV USE 1,000 MG in WATER (STERILE) FOR INJECTION 10 ML IV SCH (09:36)
[2019-02-14] MEDS: VALPROIC ACID SYRUP 250 MG/5 ML UDC PO SCH ×3 (10:31→21:31)
--- NOTE | 2019-02-14 11:01 | NUR ---
CM/SS responded to consult. Patient is sleeping. Mother is guardian. Patient has a psych dr at and they would like to go there. She is pursuing manager gyn placement and has information from [facility], they do not do acute care. Placement update: no beds available [facility] no beds available [facility] no beds, but possible discharges this day [facility] number currently have did not seem to function
--- NOTE | 2019-02-14 11:29 | NUR ---
Demolition Expert was paged as requested by ICU when pt's mother, Katerina arrived. This cat breeder arranged for ICU to contact SRIKANTH [facility] for follow up regarding residential living arrangements through [facility]. Joint visit with Rita and Katerina; Katerina said she remains outside the pt's room at this time because she hopes he will stay calm and rest. She shared this visit about the pt's diagnosis of Dubowitz syndrome.
--- NOTE | 2019-02-14 11:41 | NUR ---
CM/FAHEEM spoke with patient's mother and she will call his human services case manager with [facility] and have the fax over a copy of the guardian paperwork. He has services of case management and day services at [facility]. [facility] called back to say they had reviewed the clinical information sent and they had to decline due to capability.
[2019-02-14 13:00] VITALS: BP 149/93
--- NOTE | 2019-02-14 13:10 | NUR ---
CM/FAHEEM spoke with Katerina when she arrived at the hospital. Katerina is hopeful that the medication can be better managed for her son and behaviors of aggression somewhat decreased, she fears for him to hurt himself with his behaviors. She is wanting to take him home then at discharge. They are working with [facility] and his Medicaid Sounding Device Operator to get residential services started. Patient attends day services at [facility] from 8-1:30 daily then has staff that assists in his home. 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 He sees Ivanna for medications at [facility]. Patient's mother discussed that she knew he would not be placeable with inpatient psych and has been told that since he was 11 due to him being mostly non-verbal / unable to participate in group. Addendum: 02/14/19 at 1320 by KEHINDE MAYEN [facility] and it was provided to Medical Records to be scanned in to patient chart.
[2019-02-14] MEDS ORDERED: NON-FORMULARY MEDICATION 1 EA EA (Polyethylene Glycol 3350 (Miralax) 17 GM) PO PRN (13:15)
[2019-02-14] MEDS ORDERED: PATIENT MAY USE OWN MED,SINGLE MED PO SCH (13:15)
[2019-02-14] MEDS ORDERED: IBUPROFEN 200 MG PO PRN (13:15)
[2019-02-14] MEDS ORDERED: IBUPROFEN TABLET 200 MG TAB PO PRN (13:45)
[2019-02-14] MEDS ORDERED: POLYETHYLENE GLYCOL 17 GM (MIRALAX) PACK PO PRN (13:45)
[2019-02-14] MEDS: carBAMazepine 100 MG (TEGretol) CHEW PO SCH ×2 (13:45→19:46)
[2019-02-14 14:00] VITALS: BP 149/93
[2019-02-14 15:00] VITALS: BP 149/93
--- NOTE | 2019-02-14 15:23 | NUR ---
PT BECOMES AGITATED WHEN TAKING CONTINUOUS VITALS
[2019-02-14] MEDS ORDERED: ONDANSETRON 4 MG/2 ML (SDV) Z0FRAN ONE (16:26)
[2019-02-14] MEDS: ONDANSETRON 4 MG/2 ML (SDV) Z0FRAN IVP PRN (16:36)
[2019-02-14] MEDS: DOCUSATE SODIUM 100 MG (COLACE) CAP PO SCH (19:45)
--- NOTE | 2019-02-14 20:00 | NUR ---
PT KICKING AND TRYING TO BITE NURSING STAFF. UNABLE TO COMPLETE A FULL HEAD TO TOE ASSESSMENT.
[2019-02-14] MEDS ORDERED: carBAMazepine 100 MG (TEGretol) CHEW PO SCH (21:00)
[2019-02-14] MEDS ORDERED: VALPROIC ACID PO SCH (21:00)
[2019-02-14] MEDS ORDERED: traZODone 50 MG (DESYREL) TAB PO SCH (21:00)
[2019-02-14] MEDS ORDERED: NON-FORMULARY MEDICATION 1 EA EA (Docusate Sodium 100 MG) PO SCH (21:00)
[2019-02-14] MEDS: LORazepam INJ 2 MG/ML (ATIVAN) VIAL IM/IV PRN (21:58)
[2019-02-15] MEDS: LORazepam INJ 2 MG/ML (ATIVAN) VIAL IM/IV PRN ×2 (03:45→23:23)
[2019-02-15 03:50] LABS: BASOPHILS % (AUTO) 0 % (0-10); EOSINOPHILS # (AUTO) 0.1 10^3/uL (0.0-0.3); EOSINOPHILS % (AUTO) 1 % (0-10); HEMATOCRIT 40 % (40-54); HEMOGLOBIN 13.5 G/DL (13.3-17.7); LYMPHOCYTES # (AUTO) 3.8 X 10^3 (1.0-4.0); LYMPHOCYTES % (AUTO) 37 % (12-44); MEAN CORPUSCULAR HEMOGLOBIN 32 PG (25-34); MEAN CORPUSCULAR HGB CONC 34 G/DL (32-36); MEAN CORPUSCULAR VOLUME 95 FL (80-99); MONOCYTES # (AUTO) 1.6 X 10^3 (0.0-1.0); MONOCYTES % (AUTO) 15 % (0-12); NEUTROPHILS # (AUTO) 4.7 X 10^3 (1.8-7.8); NEUTROPHILS % (AUTO) 46 % (42-75); PLATELET COUNT 267 10^3/uL (130-400); WHITE BLOOD COUNT 10.2 10^3/uL (4.3-11.0)
[2019-02-15 04:06] LABS: BUN/CREATININE RATIO 17; CALCIUM 9.7 MG/DL (8.5-10.1); CARBON DIOXIDE 25 MMOL/L (21-32); CHLORIDE 96 MMOL/L (98-107); CREATININE SERUM 0.89 MG/DL (0.60-1.30); GFR ESTIMATED > 60; GLUCOSE 103 MG/DL (70-105); POTASSIUM 3.9 MMOL/L (3.6-5.0); SODIUM 138 MMOL/L (135-145)
[2019-02-15] MEDS ORDERED: HALOPERIDOL 5 MG/ML (HALDOL) AMP ONE (04:14)
[2019-02-15] MEDS ORDERED: LORazepam INJ 2 MG/ML (ATIVAN) VIAL IV ONE (04:30)
[2019-02-15 04:32] LABS: CARBAMAZEPINE (TEGRETOL) 6.2 UG/ML (4.0-12.0); VALPROIC ACID 58.4 UG/ML (50.0-100.0)
[2019-02-15] MEDS ORDERED: HALOPERIDOL 5 MG/ML (HALDOL) AMP IV ONE (04:45)
[2019-02-15] MEDS ORDERED: HALOPERIDOL 5 MG/ML (HALDOL) AMP IM PRN (06:15)
--- NOTE | 2019-02-15 06:19 | Pulmonary Progress Note ---
Subjective Time Seen by a Provider: 06:18 Subjective/Events-last exam No complications noted. Sepsis Event Evaluation Height, Weight, BMI Height: 5'1.00" Weight: 113lbs. 5.0oz. 51.283368cn; 21.7 BMI Method:Stated Exam Exam Vital Signs Date Time Temp Pulse Resp B/P (MAP) Pulse Ox O2 Delivery O2 Flow Rate FiO2 02/15/19 04:00 98 Room Air 02/15/19 01:03 68 20 98 Room Air 02/15/19 00:00 98 Room Air 02/14/19 18:00 Room Air 02/14/19 17:00 96.6 Room Air 02/14/19 16:00 Room Air 02/14/19 16:00 96.6 02/14/19 15:00 97.2 78 149/93 (111) 100 Room Air 02/14/19 14:00 97.2 78 149/93 (111) 100 Room Air 02/14/19 13:00 97.2 78 149/93 (111) 100 Room Air 02/14/19 12:44 63 02/14/19 12:04 83 Room Air 02/14/19 12:00 97.2 02/14/19 12:00 Room Air 02/14/19 11:00 81 Room Air 02/14/19 11:00 67 Room Air 02/14/19 10:02 68 Room Air 02/14/19 09:00 64 Room Air 02/14/19 08:00 64 Room Air 02/14/19 08:00 97.0 02/14/19 07:58 Room Air 02/14/19 07:00 64 I & O 02/15/19 07:00 Intake Total 1800 ml Balance 1800 ml Height & Weight Height: 5'1.00" Weight: 113lbs. 5.0oz. 51.978507gp; 21.7 BMI Method:Stated General Appearance: No Apparent Distress, WD/WN HEENT: PERRL/EOMI, Pharynx Normal Neck: Full Range of Motion, Non Tender, Supple Respiratory: Chest Non Tender, No Accessory Muscle Use, No Respiratory Distress Cardiovascular: Regular Rate, Rhythm, No Edema Capillary Refill: Less Than 3 Seconds Gastrointestinal: normal bowel sounds, non tender, soft Extremity: Normal Capillary Refill, No Pedal Edema Skin: Normal Color, Warm/Dry Lymphatic: No Adenopathy Results Lab Laboratory Tests 02/13/19 13:26 02/15/19 03:30 Assessment/Plan Assessment/Plan Dubowitz syndrome Psychosis/combative - pt is resting peacefully currently - Continue Gillian -JOSY Ativan I am going to transfer pt to 4th floor and sign off. Please call with any questions. MONICA LANDAVERDE DO Feb 15, 2019 06:19
[2019-02-15] MEDS: ZIPRASIDONE 20 MG (GEODON) CAP PO SCH (06:52)
[2019-02-15] MEDS: VALPROIC ACID SYRUP 250 MG/5 ML UDC PO SCH ×3 (06:52→21:00)
--- NOTE | 2019-02-15 07:54 | Progress Note ---
Subjective Time Seen by a Provider: 07:50 Subjective/Events-last exam Patient resting comfortably this morning.. Hope to transfer patient to medical floor today with one-on-one. Trying to get patient on oral medications. Hope to discharge tomorrow Objective Exam Vital Signs Date Time Temp Pulse Resp B/P (MAP) Pulse Ox O2 Delivery O2 Flow Rate FiO2 02/15/19 07:00 78 02/15/19 04:00 98 Room Air 02/15/19 01:03 68 20 98 Room Air 02/15/19 00:00 98 Room Air 02/14/19 18:00 Room Air 02/14/19 17:00 96.6 Room Air 02/14/19 16:00 Room Air 02/14/19 16:00 96.6 02/14/19 15:00 97.2 78 149/93 (111) 100 Room Air 02/14/19 14:00 97.2 78 149/93 (111) 100 Room Air 02/14/19 13:00 97.2 78 149/93 (111) 100 Room Air 02/14/19 12:44 63 02/14/19 12:04 83 Room Air 02/14/19 12:00 97.2 02/14/19 12:00 Room Air 02/14/19 11:00 81 Room Air 02/14/19 11:00 67 Room Air 02/14/19 10:02 68 Room Air 02/14/19 09:00 64 Room Air 02/14/19 08:00 64 Room Air 02/14/19 08:00 97.0 02/14/19 07:58 Room Air I & O 02/15/19 07:00 Intake Total 1800 ml Balance 1800 ml Capillary Refill : Less Than 3 Seconds General Appearance: No Apparent Distress, Thin HEENT: Normal ENT Inspection Respiratory: Lungs Clear, No Accessory Muscle Use, No Respiratory Distress Cardiovascular: Regular Rate, Rhythm, No Murmur Gastrointestinal: non tender, soft Results Lab Laboratory Tests 02/15/19 03:30 Laboratory Tests 02/14/19 12:32: Glucometer 146H 02/15/19 03:30: White Blood Count 10.2, Red Blood Count 4.18L, Hemoglobin 13.5, Hematocrit 40, Mean Corpuscular Volume 95, Mean Corpuscular Hemoglobin 32, Mean Corpuscular Hemoglobin Concent 34, Red Cell Distribution Width 13.0, Platelet Count 267, Mean Platelet Volume 9.0, Neutrophils (%) (Auto) 46, Lymphocytes (%) (Auto) 37, Monocytes (%) (Auto) 15H, Eosinophils (%) (Auto) 1, Basophils (%) (Auto) 0, Neutrophils # (Auto) 4.7, Lymphocytes # (Auto) 3.8, Monocytes # (Auto) 1.6H, Eosinophils # (Auto) 0.1, Basophils # (Auto) 0.0, Sodium Level 138, Potassium Level 3.9, Chloride Level 96L, Carbon Dioxide Level 25, Anion Gap 17H, Blood Urea Nitrogen 15, Creatinine 0.89, Estimat Glomerular Filtration Rate > 60, BUN/Creatinine Ratio 17, Glucose Level 103, Calcium Level 9.7, Valproic Acid (Depakene) Level 58.4, Carbamazepine (Tegretol) Level 6.2 Microbiology 02/13/19 Urine Culture - Preliminary, Resulted Strep Species, Alpha Hemolytic Assessment/Plan Assessment/Plan Assess & Plan/Chief Complaint Psychosis. Mentally challenged. Nonverbal. Dubowitz syndrome. Seizures. Diabetes. Clinical Quality Measures Admission Status Admission Dx Violent behavior. Intellectual disability. Diabetes. Seizures. Psychosis. dubowsky syndrome. Patient low risk for DVT. Unable to walk patient 3 times a day. Get social service director involved for placement ALEJO RANDLE DO Feb 15, 2019 07:54
[2019-02-15 08:00] VITALS: BP 132/65
[2019-02-15] MEDS ORDERED: HALOPERIDOL 2 MG (HALDOL) TABLET PO PRN (08:00)
[2019-02-15] MEDS: metFORMIN 500 MG (GLUCOPHAGE) TAB PO SCH (08:28)
[2019-02-15] MEDS: DOCUSATE SODIUM 100 MG (COLACE) CAP PO SCH ×2 (08:28→19:35)
[2019-02-15] MEDS: cefTRIAXone FOR IV USE 1,000 MG in WATER (STERILE) FOR INJECTION 10 ML IV SCH (08:29)
[2019-02-15] MEDS ORDERED: ZIPRASIDONE 20 MG (GEODON) CAP PO ONE (08:30)
[2019-02-15] MEDS: carBAMazepine 100 MG (TEGretol) CHEW PO SCH ×2 (08:30→19:40)
[2019-02-15] MEDS: HALOPERIDOL 0.5 MG (HALDOL) TAB PO PRN ×4 (08:31→20:56)
[2019-02-15] MEDS: ONDANSETRON 4 MG/2 ML (SDV) Z0FRAN IVP PRN ×2 (08:33→16:45)
[2019-02-15] MEDS ORDERED: NON-FORMULARY MEDICATION 1 EA EA (Escitalopram Oxalate 5 MG) PO SCH (09:00)
[2019-02-15] MEDS ORDERED: traZODone 50 MG (DESYREL) TAB PO ONE (09:00)
[2019-02-15] MEDS ORDERED: METFORMIN HCL 250 MG PO SCH (09:00)
--- NOTE | 2019-02-15 15:22 | NUR ---
CM/SS spoke with the patient's mother. She is planning for the patient to discharge home tomorrow. The patient has workers through [employer] and attends day services there. Katerina stated that she has more hours approved for him but has been trying to find weekend worker to fill the hours.
[2019-02-15] MEDS: ZIPRASIDONE 40 MG (GEODON) CAP PO SCH (15:40)
--- NOTE | 2019-02-15 15:40 | NUR ---
Gillian scanned at 1540 but only for mom to give with meal at [id number]
[2019-02-15] MEDS ORDERED: traZODone 100 MG (DESYREL) TAB PO SCH (21:00)
[2019-02-16 03:00] VITALS: BP 118/62
[2019-02-16] MEDS: ZIPRASIDONE 40 MG (GEODON) CAP PO SCH (06:51)
[2019-02-16] MEDS: metFORMIN 500 MG (GLUCOPHAGE) TAB PO SCH (06:52)
[2019-02-16] MEDS: VALPROIC ACID SYRUP 250 MG/5 ML UDC PO SCH (06:52)
--- NOTE | 2019-02-16 07:45 | Progress Note ---
Subjective Time Seen by a Provider: 07:43 Subjective/Events-last exam Patient doing better today. Patient had a good day yesterday. Plan to discharge today. To stop the trazodone and Zyprexa area. To put on Geodon, Ativan, and Haldol when necessary Objective Exam Vital Signs Date Time Temp Pulse Resp B/P (MAP) Pulse Ox O2 Delivery O2 Flow Rate FiO2 02/16/19 04:00 Room Air 02/16/19 03:00 97.2 71 12 118/62 (80) 97 Room Air 02/16/19 00:00 Room Air 02/15/19 20:00 Room Air 02/15/19 19:53 96.4 02/15/19 16:00 Room Air 02/15/19 16:00 72 11 Room Air 02/15/19 12:00 Room Air 02/15/19 12:00 98.6 16 02/15/19 08:00 Room Air 02/15/19 08:00 98.1 73 12 132/65 (87) 95 Room Air I & O 02/16/19 07:00 Intake Total 1960 ml Balance 1960 ml Capillary Refill : Less Than 3 Seconds General Appearance: No Apparent Distress, WD/WN HEENT: Normal ENT Inspection Neck: Normal Inspection Respiratory: Lungs Clear, No Accessory Muscle Use, No Respiratory Distress Cardiovascular: Regular Rate, Rhythm, No Murmur Gastrointestinal: non tender, soft Results Lab Microbiology 02/13/19 Urine Culture - Preliminary, Resulted Strep Species, Alpha Hemolytic Assessment/Plan Assessment/Plan Assess & Plan/Chief Complaint Psychosis. Mentally challenged. Nonverbal. Dubowitz syndrome. Seizures. Diabetes.. . 02/16/19. Psychosis. Mentally challenged. Dubowitz syndrome. Seizure. Diabetes. Agitation Clinical Quality Measures Admission Status Admission Dx Violent behavior. Intellectual disability. Diabetes. Seizures. Psychosis. dubowsky syndrome. Patient low risk for DVT. Unable to walk patient 3 times a day. Get geriatric social worker involved for placement DVT/VTE Risk/Contraindication: RFS Level Per Nursing on Admit: 1=Low/No VTE PPX ALEJO RANDLE DO Feb 16, 2019 07:45
[2019-02-16] MEDS ORDERED: ZPR40C PO (07:53)
[2019-02-16] MEDS ORDERED: HALO2TAB PO (07:53)
[2019-02-16] MEDS ORDERED: LORA2ORA PO (07:53)
[2019-02-16] MEDS: carBAMazepine 100 MG (TEGretol) CHEW PO SCH (10:15)
[2019-02-16] MEDS: DOCUSATE SODIUM 100 MG (COLACE) CAP PO SCH (10:16)
[2019-02-16] MEDS: cefTRIAXone FOR IV USE 1,000 MG in WATER (STERILE) FOR INJECTION 10 ML IV SCH (10:16)
[2019-02-16] MEDS: HALOPERIDOL 0.5 MG (HALDOL) TAB PO PRN (10:16)
--- NOTE | 2019-02-19 08:05 | Clinic Account Progress/Dx ---
Clinic Account Progress/Dx DIAGNOSIS: Time Seen by Provider: 08:02 Conduct disorder. 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 Epilepsy. Hypertension. Diabetes type II. Unspecified intellectual disability . dubowsky syndrome ALEJO RANDLE DO Feb 19, 2019 08:05
== END 2019-02-16 07:42 | disposition home or self-care (01) ==
LOC: EDUNIT# 12:26 → ER 12:27 → ICU 16:31 → UNDOADMIN 16:31 → ICU 18:00 → UNDODISIN 02-16 10:50
PROVIDERS: ADMIT Family Medicine; ATTEND Family Medicine
DX: F91.8 Other conduct disorders (principal); F79 Unspecified intellectual disabilities; G40.909 Epilepsy, unspecified, not intractable, without status epilepticus; Q87.1 Congenital malformation syndromes predominantly associated with short stature; Q04.9 Congenital malformation of brain, unspecified; I10 Essential (primary) hypertension; E11.9 Type 2 diabetes mellitus without complications; Z79.4 Long term (current) use of insulin
CPT/HCPCS: 36415; 74018; 80048; 80053; 80156; 80164; 80306; 80320; 80329; 81000; 82962; 85025; 87077; 87088; 93005; 96372; G0378

== ENCOUNTER 2019-02-22 15:10 | Emergency (ER) | payer MEDICAID ==
[~2019-02-22] VITALS: Ht 154.9 cm; Wt 44.5 kg
[~2019-02-22 15:10] MED LIST changes: +DOCU100C37 PO; +HALO2TAB PO; +IBUP-2055 PO; +LORA2ORA PO; +OLAN10TA3 PO; +OLAN20TA34 PO; +OLAN5TAB3 PO; -ZIPRASIDONE 20 MG INJ (GEODON) VIAL IM ONE; +ZPR40C PO
[2019-02-22] MEDS ORDERED: NS IV 1000 ML 1,000 ML IV SCH (15:15)
[2019-02-22] MEDS ORDERED: DEXTROSE 50% 50 ML (IMS) SYR IV ONE (15:15)
[2019-02-22 15:30] LABS: BASOPHILS % (AUTO) 0 % (0-10); EOSINOPHILS # (AUTO) 0.1 10^3/uL (0.0-0.3); EOSINOPHILS % (AUTO) 1 % (0-10); HEMATOCRIT 39 % (40-54); HEMOGLOBIN 13.4 G/DL (13.3-17.7); LYMPHOCYTES # (AUTO) 3.2 X 10^3 (1.0-4.0); LYMPHOCYTES % (AUTO) 41 % (12-44); MEAN CORPUSCULAR HEMOGLOBIN 33 PG (25-34); MEAN CORPUSCULAR HGB CONC 34 G/DL (32-36); MEAN CORPUSCULAR VOLUME 96 FL (80-99); MEAN PLATELET VOLUME 8.5 FL (7.4-10.4); MONOCYTES # (AUTO) 0.9 X 10^3 (0.0-1.0); MONOCYTES % (AUTO) 11 % (0-12); NEUTROPHILS # (AUTO) 3.7 X 10^3 (1.8-7.8); NEUTROPHILS % (AUTO) 47 % (42-75); PLATELET COUNT 314 10^3/uL (130-400); WHITE BLOOD COUNT 7.9 10^3/uL (4.3-11.0)
[2019-02-22 15:47] LABS: CLARITY,URINE CLEAR; GLUCOSE, URINE (UA) 1+ (NEGATIVE); KETONES,URINE 1+ (NEGATIVE); LEUKOCYTE ESTERASE ,URINE 1+ (NEGATIVE); NITRITE,URINE POSITIVE (NEGATIVE); PH,URINE 6.5 (5-9); PROTEIN,URINE 2+ (NEGATIVE); UROBILINOGEN,URINE 4 MG/DL (NORMAL)
[2019-02-22 15:56] LABS: ALANINE AMINOTRANSFERASE 37 U/L (0-55); ALBUMIN 4.3 GM/DL (3.2-4.5); ALKALINE PHOSPHATASE 148 U/L (40-136); BILIRUBIN,TOTAL 0.3 MG/DL (0.1-1.0); BUN/CREATININE RATIO 16; CALCIUM 9.7 MG/DL (8.5-10.1); CARBON DIOXIDE 26 MMOL/L (21-32); CHLORIDE 102 MMOL/L (98-107); CREATININE SERUM 1.01 MG/DL (0.60-1.30); GFR ESTIMATED > 60; GLUCOSE 95 MG/DL (70-105); POTASSIUM 4.7 MMOL/L (3.6-5.0); SODIUM 141 MMOL/L (135-145); TOTAL PROTEIN 8.6 GM/DL (6.4-8.2)
[2019-02-22 16:08] LABS: WBC,URINE RARE /HPF
[2019-02-22 16:09] LABS: BACTERIA,URINE TRACE /HPF; BILIRUBIN,URINE 1+ (NEGATIVE); COLOR,URINE AMBER; SQUAMOUS EPITHELIAL CELL,UR 0-2 /HPF
[2019-02-22] MEDS ORDERED: NITR-65 PO (16:45)
--- NOTE | 2019-02-22 16:45 | ED General ---
General Chief Complaint: Glucose Problems Stated Complaint: MEDICATION ISSUES Source of Information: Patient Exam Limitations: No Limitations History of Present Illness Date Seen by Provider: Feb 22, 2019 Time Seen by Provider: 15:15 Allergies and Home Medications Allergies Coded Allergies: No Known Drug Allergies (Unverified , 01/13/19) Home Medications Carbamazepine 100 Mg Tab.chew, 300 MG PO HS, (Reported) Docusate Sodium 100 Mg Capsule, 100 MG PO BID, (Reported) Escitalopram Oxalate 5 Mg Tablet, 5 MG PO DAILY, (Reported) Haloperidol 2 Mg Tablet, 2 MG PO TID Prescribed by: DANIEL MANCINI on 02/16/19 075 Ibuprofen 200 Mg Tablet, 200 MG PO Q6H PRN for PAIN-MILD, (Reported) Lorazepam 2 Mg/1 Ml Oral.conc, 1 MG PO Q6H PRN for AGITATION Prescribed by: DANIEL MANCINI on 02/16/19752 Metformin HCl 500 Mg Tablet, 250 MG PO DAILY, (Reported) TAKES 1/2 OF A 500MG TAB ONCE DAILY Polyethylene Glycol 3350 17 Gm Powd.pack, 17 GM PO QID PRN for CONSTIPATION-1ST LINE Prescribed by: ROSA MONTOYA on 10/10/171915 Valproic Acid 250 Mg Capsule, 10 ML PO TID, (Reported) Ziprasidone 40 Mg Cap, 40 MG PO BID WITH MEALS Prescribed by: DANIEL MANCINI on 02/16/19752 Past Hdqimah-Lcjtdj-Nnyofi Hx Patient Social History 2nd Hand Smoke Exposure: No Recent Foreign Travel: No Contact w/Someone Who Travel: No Recent Hopitalizations: No Immunizations Up To Date Tetanus Booster (TDap): Unknown Seasonal Allergies Seasonal Allergies: No Past Medical History Surgeries: No Respiratory: No Cardiac: Yes Hypertension 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 1.0oz. [id number]; 21.7 BMI Method:Stated Progress/Results/Core Measures Suspected Sepsis SIRS Temperature: Pulse: Respiratory Rate: Laboratory Tests 02/22/19 15:17: White Blood Count 7.9 Blood Pressure / Mean: Laboratory Tests 02/22/19 15:17: Creatinine 1.01, Platelet Count 314, Total Bilirubin 0.3 Results/Orders Lab Results Laboratory Tests Test 02/22/19 15:14 02/22/19 15:17 02/22/19 15:42 Range/Units Glucometer 83 70-110 MG/DL White Blood Count 7.9 4.3-11.0 10^3/uL Red Blood Count 4.08 L 4.35-5.85 10^6/uL Hemoglobin 13.4 13.3-17.7 G/DL Hematocrit 39 L 40-54 % Mean Corpuscular Volume 96 80-99 FL Mean Corpuscular Hemoglobin 33 25-34 PG Mean Corpuscular Hemoglobin Concent 34 32-36 G/DL Red Cell Distribution Width 13.0 10.0-14.5 % Platelet Count 314 130-400 10^3/uL Mean Platelet Volume 8.5 7.4-10.4 FL Neutrophils (%) (Auto) 47 42-75 % Lymphocytes (%) (Auto) 41 12-44 % Monocytes (%) (Auto) 11 0-12 % Eosinophils (%) (Auto) 1 0-10 % Basophils (%) (Auto) 0 0-10 % Neutrophils # (Auto) 3.7 1.8-7.8 X 10^3 Lymphocytes # (Auto) 3.2 1.0-4.0 X 10^3 Monocytes # (Auto) 0.9 0.0-1.0 X 10^3 Eosinophils # (Auto) 0.1 0.0-0.3 10^3/uL Basophils # (Auto) 0.0 0.0-0.1 10^3/uL Sodium Level 141 135-145 MMOL/L Potassium Level 4.7 3.6-5.0 MMOL/L Chloride Level 102 98-107 MMOL/L Carbon Dioxide Level 26 21-32 MMOL/L Anion Gap 13 5-14 MMOL/L Blood Urea Nitrogen 16 7-18 MG/DL Creatinine 1.01 0.60-1.30 MG/DL Estimat Glomerular Filtration Rate > 60 BUN/Creatinine Ratio 16 Glucose Level 95 70-105 MG/DL Calcium Level 9.7 8.5-10.1 MG/DL Corrected Calcium 9.5 8.5-10.1 MG/DL Total Bilirubin 0.3 0.1-1.0 MG/DL Aspartate Amino Transf (AST/SGOT) 42 H 5-34 U/L Alanine Aminotransferase (ALT/SGPT) 37 0-55 U/L Alkaline Phosphatase 148 H 40-136 U/L Total Protein 8.6 H 6.4-8.2 GM/DL Albumin 4.3 3.2-4.5 GM/DL Urine Color NIESHA H Urine Clarity CLEAR Urine pH 6.5 5-9 Urine Specific Baxley 1.020 1.016-1.022 Urine Protein 2+ H NEGATIVE Urine Glucose (UA) 1+ H NEGATIVE Urine Ketones 1+ H NEGATIVE Urine Nitrite POSITIVE H NEGATIVE Urine Bilirubin 1+ H NEGATIVE Urine Urobilinogen 4 H NORMAL MG/DL Urine Leukocyte Esterase 1+ H NEGATIVE Urine RBC (Auto) 2+ H NEGATIVE Urine RBC 2-5 H /HPF Urine WBC RARE /HPF Urine Squamous Epithelial Cells 0-2 /HPF Urine Crystals NONE /LPF Urine Bacteria TRACE /HPF Urine Casts NONE /LPF Urine Mucus NEGATIVE /LPF Urine Culture Indicated YES My Orders Orders - GRAHAM MARTINEZ Cbc With Automated Diff (02/22/19 15:14) Comprehensive Metabolic Panel (02/22/19 15:14) Ns Iv 1000 Ml (Sodium Chloride 0.9%) (02/22/19 15:15) D50w (Emergency) Syringe (Dextrose 50% 5 (02/22/19 15:15) Ua Culture If Indicated (02/22/19 15:14) Urine Culture (02/22/19 15:42) Medications Given in ED Current Medications Medications Dose Ordered Sig/Celeste Route Start Time Stop Time Status Last Admin Dose Admin Dextrose 25 ml ONCE ONCE IV 02/22/19 15:15 02/22/19 15:16 DC 02/22/19 15:15 25 ML Vital Signs/I&O Capillary Refill : Departure Impression Primary Impression: Hypoglycemia Additional Impression: UTI (urinary tract infection) Disposition: 01 HOME, SELF-CARE Condition: Stable/Unchanged Departure-Patient Inst. Decision time for Depature: 16:44 Referrals: ALEJO RANDLE DO (PCP/Family) Primary Care Physician Patient Instructions: Urinary Tract Infection, Adult (DC), Diabetes Type 2 (DC) Add. Discharge Instructions: Take antibiotics as directed. Keep track of his medication to determine what works well with his Geodon and Haldol but also allows him to eat normally during the day. Take frequent blood sugar checks. Encourage plenty of fluids. Follow-up with his doctor within 1 week for recheck. Return back to the emergency room for worsening symptoms or concerns as needed. All discharge instructions reviewed with patient and/or family. Voiced understanding. Scripts Nitrofurantoin Monohyd/M-Cryst (Macrobid 100 mg Capsule) 100 Mg Capsule 1 TAB PO BID for 7 Days, #14 CAP Prov: GRAHAM MARTINEZ 02/22/19 GRAHAM MARTINEZ Feb 22, 2019 16:45
[2019-02-22 16:55] VITALS: BP 110/60
== END 2019-02-22 16:55 | disposition home or self-care (01) ==
LOC: EDUNIT# 15:10 → ER 15:11
DX: E11.649 Type 2 diabetes mellitus with hypoglycemia without coma (principal); N39.0 Urinary tract infection, site not specified; G40.909 Epilepsy, unspecified, not intractable, without status epilepticus; F89 Unspecified disorder of psychological development; Z86.012 Personal history of benign carcinoid tumor; Z79.84 Long term (current) use of oral hypoglycemic drugs
CPT/HCPCS: 36415; 80053; 81000; 82962; 85025; 87088

== ENCOUNTER 2019-04-04 08:13 | Emergency (ER) | payer MEDICAID ==
[~2019-04-04] VITALS: Ht 152 cm; Wt 46.8 kg
[~2019-04-04 08:13] MED LIST changes: +NITR-65 PO
[2019-04-04] MEDS ORDERED: L.E.T. SYRINGE 5 ML MM STA (10:07)
--- NOTE | 2019-04-04 10:10 | ED Fall/Injury ---
General Chief Complaint: Laceration Stated Complaint: FALL Nursing Triage Note: AMB TO ED WITH FAMILY PATIENT IS MR GOULD THIS AM LACERATION TO NOSE. Source: family (CHUY UGALDE MED STUDENT) Exam Limitations: physical impairment (CONG MILLARD MD) History of Present Illness Date Seen by Provider: Apr 04, 2019 Time Seen by Provider: 09:40 Initial Comments The patient is a WD/WN 23 y/o male with decreased mental capacity who is here with his mother with a chief complaint of facial laceration. The patient is unable to participate in the interview due to significant mental deficit. The mother reports that he slipped and fell this morning and hit his nose on a coffee table. He had a previous injury in the same area 2 months ago. The mother states that she believes he is currently in pain. She reports that he is being more quiet than usual since the accident. Occurred: just prior to arrival Severity: mild Injuries/Pain Location: face Context: lost balance, slipped Loss of Consciousness: no loss of consciousness (CHUY UGALDE MED STUDENT) Initial Comments Here with report of a laceration to the nose after falling. He was actually in the shower this time and had completed that. His care worker was getting his clothes when the patient fell and hit his nose on the tub edge. No loss of consciousness. No other injury. 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 Did have previous fall couple months ago and hit the TV stand. Occurred: just prior to arrival Severity: moderate Loss of Consciousness: no loss of consciousness (CONG MILLARD MD) Allergies and Home Medications Allergies Coded Allergies: No Known Drug Allergies (Unverified , 01/13/19) Home Medications Carbamazepine 100 Mg Tab.chew, 300 MG PO HS, (Reported) Docusate Sodium 100 Mg Capsule, 100 MG PO BID, (Reported) Escitalopram Oxalate 5 Mg Tablet, 5 MG PO DAILY, (Reported) Ibuprofen 200 Mg Tablet, 200 MG PO Q6H PRN for PAIN-MILD, (Reported) Lorazepam 2 Mg/1 Ml Oral.conc, 1 MG PO Q6H PRN for AGITATION Prescribed by: DANIEL MANCINI on 02/16/19 0753 Metformin HCl 500 Mg Tablet, 250 MG PO DAILY, (Reported) TAKES 1/2 OF A 500MG TAB ONCE DAILY Nitrofurantoin Monohyd/M-Cryst 100 Mg Capsule, 1 TAB PO BID Prescribed by: GRAHAM MARTINEZ on 02/22/19 1645 Polyethylene Glycol 3350 17 Gm Powd.pack, 17 GM PO QID PRN for CONSTIPATION-1ST LINE Prescribed by: ROSA MONTOYA on 10/10/17 191 Valproic Acid 250 Mg Capsule, 10 ML PO TID, (Reported) Patient Home Medication List Home Medication List Reviewed: Yes (CONG MILLARD MD) Review of Systems Review of Systems Ears, Nose, Mouth, Throat: nose pain (CHUY UGALDE STUDENT) Constitutional: see HPI Ears, Nose, Mouth, Throat: nose pain; denies epistaxis Skin: No change in color; lesions Review of systems Limited due to underlying medical condition. 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, small stature, seizure dz), pituitary tumor) Developmental Disorder, Seizure Disorder Genitourinary: No Gastrointestinal: No Musculoskeletal: No Endocrine: Yes Diabetes, Insulin dep HEENT: No Cancer: No Psychosocial: Yes Violent Behavior Integumentary: No Blood Disorders: No (CHUY UGALDE STUDENT) Family Medical History Reviewed Nursing Family Hx (CONG MILLARD MD) No Pertinent Family Hx (CHUY UGALDE) No Pertinent Family Hx (CONG MILLARD MD) Physical Exam Vital Signs Vital Signs - First Documented 04/04/19 08:58 Temp 35.3 Pulse 75 Resp 18 B/P (MAP) 111/63 (79) Pulse Ox 99 (CONG MILLARD MD) Vital Signs Capillary Refill : Less Than 3 Seconds (CHUY UGALDE MED STUDENT) Height, Weight, BMI Height: 5'1.00" Weight: 98lbs. 1.0oz. 44.541273uy; 20.00 BMI Method:Estimated General Appearance: WD/WN, no apparent distress Cardiovascular: regular rate, rhythm, no edema, no murmur Respiratory: chest non-tender, lungs clear, normal breath sounds Neurologic/Psychiatric: alert, normal mood/affect Skin: normal color, warm/dry (CHUY UGALDE MED STUDENT) General Appearance: WD/WN, no apparent distress HEENT: PERRL/EOMI, TMs normal Neck: full range of motion, supple Cardiovascular: regular rate, rhythm, no edema Respiratory: lungs clear, normal breath sounds Gastrointestinal: non tender, soft Extremities: normal range of motion, non-tender Neurologic/Psychiatric: alert, normal mood/affect Skin: warm/dry, other (3 cm laceration to the bridge of the nose) GCS unreliable due to patient's underlying mental capacity deficit. He is at baseline without new deficit as noted per family and I am very familiar with the patient as well and agree with that assessment. (CONG MILLARD MD) Amilcar Coma Score Best Eye Response: (4) Open Spontaneously (CONG MILLARD MD) Procedures/Interventions Wound Location: Face Other Wound Location Bridge of nose Wound Length (cm): 3 Wound's Depth, Shape: superficial Other Closure Supply: Wound Adhesive Progress Wound cleaned with fresh water and covered with skin glue. After glue dried, cover with dry Band-Aid. (CONG MILLARD MD) Progress/Results/Core Measures Results/Orders My Orders Orders - CONG MILLARD MD Hydrocodone/Apap 5/325 Tablet (Lortab 5 (04/04/19 10:15) Let Solution (Let Solution) (04/04/19 10:07) (CONG MILLARD MD) Medications Given in ED Current Medications Medications Dose Ordered Sig/Celeste Route Start Time Stop Time Status Last Admin Dose Admin Acetaminophen/ Hydrocodone Bitart 1 tab ONCE ONCE PO 04/04/19 10:15 04/04/19 10:16 DC 04/04/19 10:15 1 TAB (CONG MILLARD MD) Vital Signs/I&O 04/04/19 08:58 Temp 35.3 Pulse 75 Resp 18 B/P (MAP) 111/63 (79) Pulse Ox 99 (CONG MILLARD MD) Blood Pressure Mean: 79 Progress Progress Note : Time: 09:55 Progress Note Patient is resting in the room with his family. He will be evaluated with CT to rule out head trauma. Hydrocodone will be administered for pain control. Topical lidocaine will be administered prior to using skin adhesive to close the wound. (CHUY UGALDE MED STUDENT) Progress Note : Progress Note Seen and evaluated. We discussed CT but this was held due to patient not going to hold still. Overall his mental status is appropriate for him. He is not actively bleeding. We did attempt to apply LET but patient did not tolerate. We discussed suture versus gluing wound. Mother would like to try to glue wound and we talked about type of repair. I agree that this would be more beneficial to the patient as he would be less likely to try to pull the sutures are wound. Wound cleaned and closed with skin glue. Patient tolerated procedure well and we have good approximation of wound. Covered with dry Band-Aid afterwards. Discharged home with return precautions. Mother verbalized understanding of instructions and agreement with plan. (CONG MILLARD MD) Departure Impression Primary Impression: Laceration of nose Qualified Codes: S01.21XA - Laceration without foreign body of nose, initial encounter Disposition: 01 HOME, SELF-CARE Condition: Improved Departure-Patient Inst. Decision time for Depature: 11:06 (CONG MILLARD MD) Referrals: ALEJO RANDLE DO (PCP/Family) Primary Care Physician Patient Instructions: Laceration Repair With Glue (DC) Add. Discharge Instructions: All discharge instructions reviewed with patient and/or family. Voiced understanding. You may keep wound covered with dry Band-Aid but do not use lotions, creams or ointments over wound as this will prematurely cause the glue to fall off. Glue should come off on its own in the next 4-7 days. Return for worse pain, bleeding nose, changes in behavior, increasing redness or swelling, foul-smelling drainage or other concerns as needed. Continue home medications as previously prescribed. CHUY UGALDE STUDENT Apr 04, 2019 10:10 CONG MILLARD MD Apr 04, 2019 11:06
[2019-04-04] MEDS ORDERED: HYDROcodone/APAP 5 MG/325 MG (LORTAB) TAB PO ONE (10:15)
[2019-04-04 11:15] VITALS: BP 111/63
== END 2019-04-04 11:15 | disposition home or self-care (01) ==
LOC: EDUNIT# 08:13 → ER 08:13
DX: S01.21XA Laceration without foreign body of nose, initial encounter (principal); I10 Essential (primary) hypertension; E11.9 Type 2 diabetes mellitus without complications; G40.909 Epilepsy, unspecified, not intractable, without status epilepticus; F81.9 Developmental disorder of scholastic skills, unspecified; R45.6 Violent behavior; Z79.84 Long term (current) use of oral hypoglycemic drugs; W01.190A Fall on same level from slipping, tripping and stumbling with subsequent striking against furniture, initial encounter

== ENCOUNTER 2019-06-16 11:18 | Emergency (ER) | payer MEDICAID ==
[~2019-06-16] VITALS: Ht 173 cm; Wt 54.0 kg
[2019-06-16] MEDS ORDERED: ONDANSETRON 4 MG/2 ML (SDV) Z0FRAN IVP ONE (12:00)
[2019-06-16] MEDS ORDERED: NS IV 500 ML 500 ML IV SCH (12:00)
[2019-06-16] MEDS ORDERED: KETAMINE/NaCl 50 MG/5 ML SYRINGE (ED ONLY) IV ONE (12:00)
[2019-06-16] MEDS ORDERED: KETAMINE HCL 100 MG/ML 5 ML VIAL IM ONE (12:00)
[2019-06-16] MEDS ORDERED: MIDAZOLAM 5 MG/5 ML (VERSED) VIAL IVP ONE (12:00)
[2019-06-16] MEDS ORDERED: LIDOCAINE/EPI 1%-1:100,000 (XYLOCAINE) 20ML INJ ONE (12:00)
[2019-06-16] MEDS ORDERED: TETANUS,DIPTH,PERTUSS P/F (BOOSTRIX) 0.5 ML VIAL IM ONE (12:15)
--- NOTE | 2019-06-16 12:40 | ED Integumentary General ---
General Chief Complaint: Laceration Stated Complaint: FALL - CHIN LAC Nursing Triage Note: Per staff patient was walking and fell about 0700 this morning. patient has a laceration on the L side of his chin. 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 Timing/Duration: this morning Severity: moderate Location: face Associated Symptoms: denies symptoms Allergies and Home Medications Allergies Coded Allergies: No Known Drug Allergies (Unverified , 01/13/19) Home Medications Carbamazepine 100 Mg Tab.chew, 300 MG PO HS, (Reported) Cephalexin 500 Mg Capsule, 500 MG PO TID Prescribed by: RIP GARCIA on 06/16/19 1241 Docusate Sodium 100 Mg Capsule, 100 MG PO BID, (Reported) Escitalopram Oxalate 5 Mg Tablet, 5 MG PO DAILY, (Reported) Ibuprofen 200 Mg Tablet, 200 MG PO Q6H PRN for PAIN-MILD, (Reported) Lorazepam 2 Mg/1 Ml Oral.conc, 1 MG PO Q6H PRN for AGITATION Prescribed by: DANIEL MANCINI on 02/16/19 0753 Metformin HCl 500 Mg Tablet, 250 MG PO DAILY, (Reported) TAKES 1/2 OF A 500MG TAB ONCE DAILY Nitrofurantoin Monohyd/M-Cryst 100 Mg Capsule, 1 TAB PO BID Prescribed by: GRAHAM MARTINEZ on 02/22/19 1645 Polyethylene Glycol 3350 17 Gm Powd.pack, 17 GM PO QID PRN for CONSTIPATION-1ST LINE Prescribed by: ROSA MONTOYA on 10/10/17 1916 Valproic Acid 250 Mg Capsule, 10 ML PO TID, (Reported) Patient Home Medication List Home Medication List Reviewed: Yes Review of Systems Review of Systems Constitutional: see HPI EENTM: see HPI Respiratory: no symptoms reported Cardiovascular: no symptoms reported Genitourinary: no symptoms reported Musculoskeletal: no symptoms reported Skin: see HPI Psychiatric/Neurological: No Symptoms Reported Endocrine: No Symptoms Reported Hematologic/Lymphatic: No Symptoms Reported Past Ofrffkc-Dspdqo-Onkewk Hx Patient Social History Alcohol Use: Denies Use Recreational Drug Use: No 2nd Hand Smoke Exposure: No Recent Foreign Travel: No Contact w/Someone Who Travel: No Recent Infectious Disease Expo: No Recent Hopitalizations: No Physical Abuse: No Sexual Abuse: No Mistreated: No Fear: No Immunizations Up To Date Tetanus Booster (TDap): Unknown Seasonal Allergies Seasonal Allergies: No Past Medical History Surgeries: No Respiratory: No Cardiac: Yes Hypertension 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, small stature, seizure dz), pituitary tumor) Developmental Disorder, Seizure Disorder Genitourinary: No Gastrointestinal: No Musculoskeletal: No Endocrine: Yes Diabetes, Insulin dep HEENT: No Cancer: No Psychosocial: Yes Violent Behavior Integumentary: No Blood Disorders: No Family Medical History No Pertinent Family Hx Physical Exam Vital Signs Vital Signs - First Documented 06/16/19 11:45 Temp 37.1 Pulse 93 Resp 18 B/P (MAP) 120/88 (99) Pulse Ox 98 Capillary Refill : Less Than 3 Seconds General Appearance: WD/WN, no apparent distress HEENT: PERRL/EOMI, normal ENT inspection, TMs normal, other (2.5 semi-lacerat ion to the right mandible, depth to the subcutaneous tissue) Neck: non-tender, supple Respiratory: no respiratory distress, no accessory muscle use Extremities: normal range of motion, non-tender Neurologic/Psychiatric: alert, normal mood/affect, oriented x 3 Skin: normal color, warm/dry Procedures/Interventions Wound Location: Face Wound Length (cm): 2.5 Wound's Depth, Shape: linear Wound Explored: clean Anesthesia: 1% Lidocaine Suture: Chromic Suture Size: 4-0 Number of Sutures: 3 Layer Closure?: 1 Number Deep Layer Sutures: 0 We used chromic sutures specifically for the purpose of not having to remove these given his poor tolerance of any assessment or treatment. These will not need removed. Progress/Results/Core Measures Results/Orders My Orders Orders - RIP GARCIA APRN Lidocaine/Epi 1% 1:100,000 (Xylocaine /E (06/16/19 12:00) Ondansetron Injection (Zofran Injectio (06/16/19 12:00) Ns Iv 500 Ml (Sodium Chloride 0.9%) (06/16/19 12:00) Midazolam Injection (Versed Injection) (06/16/19 12:00) Ketamine Syringe (Ed Only) (Ketamine Syr (06/16/19 12:00) Ketamine Injection (Ketalar Injection) (06/16/19 12:00) Dipht,Pertuss(Acell),Tet Adult (Boostrix (06/16/19 12:15) Medications Given in ED Current Medications Medications Dose Ordered Sig/Celsete Route Start Time Stop Time Status Last Admin Dose Admin Diphtheria/ Tetanus/Acell Pertussis 0.5 ml STK-MED ONCE IM 06/16/19 12:15 06/16/19 12:18 DC 06/16/19 12:19 0.5 ML Ketamine HCl 100 mg ONCE ONCE IM 06/16/19 12:00 06/16/19 12:01 DC 06/16/19 12:09 100 MG Vital Signs/I&O 06/16/19 06/16/19 11:45 13:50 Temp 37.1 37.1 Pulse 93 93 Resp 18 18 B/P (MAP) 120/88 (99) 120/88 (99) Pulse Ox 98 98 Blood Pressure Mean: 99 POS Departure Communication (Admissions) Due to his uncooperativeness with assessment and treatment we did give 2 mg/kg of ketamine intramuscular right ventrogluteal, this worked wonderfully. Supplemental oxygen provided during suturing, no desaturation. Impression Primary Impression: Laceration of chin Disposition: HOME, SELF-CARE Condition: Improved Departure-Patient Inst. Decision time for Depature: 12:39 Referrals: ALEJO RANDLE DO (PCP/Family) Primary Care Physician Patient Instructions: Laceration Repair With Stitches (DC) Add. Discharge Instructions: 1. Stitches should dissolve on their own in about 7-10 days. Return to ER for any concerns in the meantime. Tylenol and Motrin for pain control. Antibiotics as directed. All discharge instructions reviewed with patient and/or family. Voiced understanding. Scripts Cephalexin (Keflex) 500 Mg Capsule 500 MG PO TID, #9 CAP Prov: RIP GARCIA APRN 06/16/19 RIP GARCIA APRN Jun 16, 2019 12:39 POS
[2019-06-16] MEDS ORDERED: CEPH-507 PO (12:41)
[2019-06-16 13:50] VITALS: BP 120/88
--- OUTSIDE RECORDS SUMMARY | 2019-07-11 21:31 | XMS REPORT | Continuity of Care Document ---
Author Organization Unknown Address Unknown Phone Unavailable Allergies Active Description Code Type Severity Reaction Onset Reported/Identified Relationship to Patient Clinical Status Yes No Known Drug Allergies [id number] Drug Allergy Unknown N/A 01/13/2019 Medications There is no data. Problems Date Dx Coded Attending Type Code Diagnosis Diagnosed By 08/12/2017 ROSA MONTOYA MD Ot S06.0X0A CONCUSSION WITHOUT LOSS OF CONSCIOUSNESS 08/12/2017 ROSA MONTOYA MD Ot S09.90XA UNSPECIFIED INJURY OF HEAD, INITIAL ENCO 08/12/2017 ROSA MONTOYA MD Ot W10.9XXA FALL (ON) (FROM) UNSPECIFIED STAIRS AND 08/15/2017 ROSA MONTOYA MD Ot S06.0X0A CONCUSSION WITHOUT LOSS OF CONSCIOUSNESS 08/15/2017 ROSA MONTOYA MD Ot S09.90XA UNSPECIFIED INJURY OF HEAD, INITIAL ENCO 08/15/2017 ROSA MONTOYA MD Ot W10.9XXA FALL (ON) (FROM) UNSPECIFIED STAIRS AND 10/10/2017 ROSA MONTOYA MD Ot E11. 9 TYPE 2 DIABETES MELLITUS WITHOUT COMPLIC 10/10/2017 ROSA MONTOYA MD Ot I10 ESSENTIAL (PRIMARY) HYPERTENSION 10/10/2017 ROSA MONTOYA MD Ot K59. 09 OTHER CONSTIPATION 10/10/2017 ROSA MONTOYA MD Ot R63. 0 ANOREXIA 10/10/2017 ROSA MONTOYA MD Ot Z86. 59 PERSONAL HISTORY OF OTHER MENTAL AND BEH 10/12/2017 ROSA MONTOYA MD Ot E11. 9 TYPE 2 DIABETES MELLITUS WITHOUT COMPLIC 10/12/2017 ROSA MONTOYA MD Ot I10 ESSENTIAL (PRIMARY) HYPERTENSION 10/12/2017 ROSA MONTOYA MD Ot K59. 09 OTHER CONSTIPATION 10/12/2017 ROSA MONTOYA MD Ot R63. 0 ANOREXIA 10/12/2017 ROSA MONTOYA MD Ot Z86. 59 PERSONAL HISTORY OF OTHER MENTAL AND BEH 08/07/2018 RAZIA BLOCK, ALEJO Luciano Ot S59.902A UNSPECIFIED INJURY OF LEFT ELBOW, INITIA 08/16/2018 RAZIA BLOCK, ALEJO Wolf Ot S59.902A UNSPECIFIED INJURY OF LEFT ELBOW, INITIA 08/17/2018 RAZIA BLOCK, ALEJO Luciano Ot S59.902A UNSPECIFIED INJURY OF LEFT ELBOW, INITIA 08/31/2018 RAZIA BLOCK, ALEJO Wolf Ot M25.422 EFFUSION, LEFT ELBOW 10/06/2018 RIP GARCIA APRN Ot E11 .9 TYPE 2 DIABETES MELLITUS WITHOUT COMPLIC 10/06/2018 RIP GARCIA APRN Ot G40.909 EPILEPSY, UNSP, NOT INTRACTABLE, WITHOUT 10/06/2018 RIP GARCIA APRN Ot I10 ESSENTIAL (PRIMARY) HYPERTENSION 10/06/2018 RIP GARCIA APRN Ot M25.421 EFFUSION, RIGHT ELBOW 10/06/2018 RIP GARCIA APRN Ot M79.89 OTHER SPECIFIED SOFT TISSUE DISORDERS 10/09/2018 RAZIA BLOCKALEJO Ot M25.421 EFFUSION, RIGHT ELBOW 10/09/2018 RAZIA BLOCK, ALEJO Wolf Ot M79.631 PAIN IN RIGHT FOREARM 10/12/2018 RIP GARCIA APRN Ot E11 .9 TYPE 2 DIABETES MELLITUS WITHOUT COMPLIC 10/12/2018 RIP GARCIA APRN Ot G40.909 EPILEPSY, UNSP, NOT INTRACTABLE, WITHOUT 10/12/2018 RIP GARCIA APRN Ot I10 ESSENTIAL (PRIMARY) HYPERTENSION 10/12/2018 RIP GARCIA APRN Ot M25.421 EFFUSION, RIGHT ELBOW 10/12/2018 RIP GARCIA APRN Ot M79.89 OTHER SPECIFIED SOFT TISSUE DISORDERS 10/27/2018 RAZIA BLOCKALEJO Ot M25.421 EFFUSION, RIGHT ELBOW 10/27/2018 EDILMALENDER DO, ALEJO Wolf Ot M79.631 PAIN IN RIGHT FOREARM 01/13/2019 EASTON HOWE Ot E11.9 TYPE 2 DIABETES MELLITUS WITHOUT COMPLIC 01/13/2019 EASTON HOWE Ot G40.909 EPILEPSY, UNSP, NOT INTRACTABLE, WITHOUT 01/13/2019 EASTON HOWE Ot S01.21XA LACERATION WITHOUT FOREIGN BODY OF NOSE, 01/13/2019 EASTON HOWE Ot S01.81XA LACERATION W/O FOREIGN BODY OF OTH PART 01/13/2019 EASTON HOWE Ot S09.90XA UNSPECIFIED INJURY OF HEAD, INITIAL ENCO 01/13/2019 EASTON HOWE Ot W01.118A FALL SAME LEV FR SLIP/TRIP W STRK AGNST 01/16/2019 EASTON HOWE Ot E11.9 TYPE 2 DIABETES MELLITUS WITHOUT COMPLIC 01/16/2019 EASTON HOWE Ot G40.909 EPILEPSY, UNSP, NOT INTRACTABLE, WITHOUT 01/16/2019 EASTON HOWE Ot S01.21XA LACERATION WITHOUT FOREIGN BODY OF NOSE, 01/16/2019 EASTON HOWE Ot S01.81XA LACERATION W/O FOREIGN BODY OF OTH PART 01/16/2019 EASTON HOWE Ot S09.90XA UNSPECIFIED INJURY OF HEAD, INITIAL ENCO 01/16/2019 EASTON HOWE Ot W01.118A FALL SAME LEV FR SLIP/TRIP W STRK AGNST 01/19/2019 EASTON HOWE Ot E11.9 TYPE 2 DIABETES MELLITUS WITHOUT COMPLIC 01/19/2019 EASTON HOWE Ot G40.909 EPILEPSY, UNSP, NOT INTRACTABLE, WITHOUT 01/19/2019 EASTON HOWE Ot S01.21XA LACERATION WITHOUT FOREIGN BODY OF NOSE, 01/19/2019 EASTON HOWE Ot S01.81XA LACERATION W/O FOREIGN BODY OF OTH PART 01/19/2019 EASTON HOWE Ot S09.90XA UNSPECIFIED INJURY OF HEAD, INITIAL ENCO 01/19/2019 EASTON HOWE Ot W01.118A FALL SAME LEV FR SLIP/TRIP W STRK AGNST 02/14/2019 GELLENDER DO, ALEJO Wolf Ot E11.9 TYPE 2 DIABETES MELLITUS WITHOUT COMPLIC 02/14/2019 GELLENDER DO, ALEJO Wolf Ot F79 UNSPECIFIED INTELLECTUAL DISABILITIES 02/14/2019 GELLENDER DO, ALEJO Wolf Ot F91.8 OTHER CONDUCT DISORDERS 02/14/2019 GELLENDER DO, ALEJO Wolf Ot F91.9 CONDUCT DISORDER, UNSPECIFIED 02/14/2019 GELLENDER DO, ALEJO A Ot G40.909 EPILEPSY, UNSP, NOT INTRACTABLE, WITHOUT 02/14/2019 GELLENDER DO, ALEJO A Ot I10 ESSENTIAL (PRIMARY) HYPERTENSION 02/14/2019 GELLENDER DO, ALEJO A Ot 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, UNSPEC 02/14/2019 GELLENDER DO, ALEJO A Ot 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 02/14/2019 GELLENDER DO, ALEJO Wolf Ot Z79.4 LONGTERM (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 02/15/2019 GELLENDER DO, ALEJO A Ot E11.9 TYPE 2 DIABETES MELLITUS WITHOUT COMPLIC 02/15/2019 GELLENDER DO, ALEJO Wolf Ot F79 UNSPECIFIED INTELLECTUAL DISABILITIES 02/15/2019 GELLENDER DO, ALEJO Wolf Ot F91.8 OTHER CONDUCT DISORDERS 02/15/2019 GELLENDER DO, ALEJO Wolf Ot F91.9 CONDUCT DISORDER, UNSPECIFIED 02/15/2019 GELLENDER DO, ALEJO Wolf Ot G40.909 EPILEPSY, UNSP, NOT INTRACTABLE, WITHOUT 02/15/2019 GELLENDER DO, ALEJO A Ot I10 ESSENTIAL (PRIMARY) HYPERTENSION 02/15/2019 GELLENDER DO, ALEJO Wolf Ot 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, UNSPEC 02/15/2019 GELLENDER DO, ALEJO Wolf Ot 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 02/15/2019 GELLENDER DO, ALEJO Wolf Ot Z79.4 LONGTERM (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 02/16/2019 GELLENDER DO, ALEJO Wolf Ot E11.9 TYPE 2 DIABETES MELLITUS WITHOUT COMPLIC 02/16/2019 GELLENDER DO, ALEJO Wolf Ot F79 UNSPECIFIED INTELLECTUAL DISABILITIES 02/16/2019 GELLENDER DO, ALEJO Wolf Ot F91.8 OTHER CONDUCT DISORDERS 02/16/2019 GELLENDER DO, ALEJO Wolf Ot F91.9 CONDUCT DISORDER, UNSPECIFIED 02/16/2019 GELLENDER DO, ALEJO A Ot G40.909 EPILEPSY, UNSP, NOT INTRACTABLE, WITHOUT 02/16/2019 GELLENDER DO, ALEJO A Ot I10 ESSENTIAL (PRIMARY) HYPERTENSION 02/16/2019 GELLENDER DO, ALEJO A Ot 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, UNSPEC 02/16/2019 GELLENDER DO, ALEJO A Ot 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 02/16/2019 GELLENDER DO, ALEJO A Ot Z79.4 SU[employer] VAULT (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 02/16/2019 GELLENDER DO, ALEJO Wolf Ot E11.9 TYPE 2 DIABETES MELLITUS WITHOUT COMPLIC 02/16/2019 GELLENDER DO, ALEJO Wolf Ot F79 UNSPECIFIED INTELLECTUAL DISABILITIES 02/16/2019 GELLENDER DO, ALEJO Wolf Ot F91.8 OTHER CONDUCT DISORDERS 02/16/2019 GELLENDER DO, ALEJO Wolf Ot F91.9 CONDUCT DISORDER, UNSPECIFIED 02/16/2019 GELLENDER DO, ALEJO A Ot G40.909 EPILEPSY, UNSP, NOT INTRACTABLE, WITHOUT 02/16/2019 GELLENDER DO, ALEJO Luciano Ot I10 ESSENTIAL (PRIMARY) HYPERTENSION 02/16/2019 GELLENDER DO, ALEJO Wolf Ot 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, UNSPEC 02/16/2019 GELLENDER DO, ALEJO A Ot 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 02/16/2019 GELLENDER DO, ALEJO Wolf Ot Z79.4 [employer] (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 02/19/2019 GELLENDER DO, ALEJO Wolf Ot E11.9 TYPE 2 DIABETES MELLITUS WITHOUT COMPLIC 02/19/2019 GELLENDER DO, ALEJO Wolf Ot F79 UNSPECIFIED INTELLECTUAL DISABILITIES 02/19/2019 GELLENDER DO, ALEJO Wolf Ot F91.8 OTHER CONDUCT DISORDERS 02/19/2019 GELLENDER DO, ALEJO Wolf Ot F91.9 CONDUCT DISORDER, UNSPECIFIED 02/19/2019 GELLENDER DO, ALEJO A Ot G40.909 EPILEPSY, UNSP, NOT INTRACTABLE, WITHOUT 02/19/2019 GELLENDER DO, ALEJO A Ot I10 ESSENTIAL (PRIMARY) HYPERTENSION 02/19/2019 GELLENDER DO, ALEJO Wolf Ot 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, UNSPEC 02/19/2019 GELLENDER DO, ALEJO A Ot 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 02/19/2019 GELLENDER DO, ALEJO A Ot Z79.4 [employer] (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 02/22/2019 GRAHAM MARTINEZ Ot E11.649 TYPE 2 DIABETES MELLITUS WITH HYPOGLYCEM 02/22/2019 GRAHAM MARTINEZ Ot E16.2 HYPOGLYCEMIA, UNSPECIFIED 02/22/2019 GRAHAM MARTINEZ Ot F89 UNSPECIFIED DISORDER OF PSYCHOLOGICAL DE 02/22/2019 GRAHAM MARTINEZ Ot G40.909 EPILEPSY, UNSP, NOT INTRACTABLE, WITHOUT 02/22/2019 BERNSONY GRAHAM Ot N39.0 URINARY TRACT INFECTION, SITE NOT SPECIF 02/22/2019 BERNOT GRAHAM Ot Z79.84 LONGTERM (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 OF ORAL HYPOGLYC 02/22/2019 BERNSONY GRAHAM Ot Z86.012 PERSONAL HISTORY OF BENIGN CARCINOID INESSA 02/26/2019 TANVIR MARTINEZIS Ot E11.649 TYPE 2 DIABETES MELLITUS WITH HYPOGLYCEM 02/26/2019 TANVIR MARTINEZIS Ot E16.2 HYPOGLYCEMIA, UNSPECIFIED 02/26/2019 BERNOTTANVIRIS Ot F89 UNSPECIFIED DISORDER OF PSYCHOLOGICAL DE 02/26/2019 BERNTANVIR CARDOZAIS Ot G40.909 EPILEPSY, UNSP, NOT INTRACTABLE, WITHOUT 02/26/2019 BERNOT GRAHAM Ot N39.0 URINARY TRACT INFECTION, SITE NOT SPECIF 02/26/2019 BERNTANVIR CARDOZAIS Ot Z79.84 LONGTERM (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 OF ORAL HYPOGLYC 02/26/2019 GRAHAM MARTINEZ Ot Z86.012 PERSONAL HISTORY OF BENIGN CARCINOID INESSA 04/06/2019 CONG MILLARD MD Ot E11.9 TYPE 2 DIABETES MELLITUS WITHOUT COMPLIC 04/06/2019 CONG MILLARD MD Ot F81.9 DEVELOPMENTAL DISORDER OF SCHOLASTIC SKI 04/06/2019 CONG MILLARD MD, Ot G40.909 EPILEPSY, UNSP, NOT INTRACTABLE, WITHOUT 04/06/2019 CONG MILLARD MD Ot I10 ESSENTIAL (PRIMARY) HYPERTENSION 04/06/2019 CONG MILLARD MD Ot R45.6 VIOLENT BEHAVIOR 04/06/2019 CONG MILLARD MD Ot S01.21XA LACERATION WITHOUT FOREIGN BODY OF NOSE, 04/06/2019 CONG MILLARD MD Ot W01.190A FALL SAME LEV FROM SLIP/TRIP W STRIKE AG 04/06/2019 CONG MILLARD MD Ot Z79.84 [employer] (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 OF ORAL HYPOGLYC 06/16/2019 RIP GARCIA APRN Ot E11 .9 TYPE 2 DIABETES MELLITUS WITHOUT COMPLIC 06/16/2019 RIP GARCIA APRN Ot F91 .8 OTHER CONDUCT DISORDERS 06/16/2019 RIP GARCIA APRN Ot G40.909 EPILEPSY, UNSP, NOT INTRACTABLE, WITHOUT 06/16/2019 RIP GARCIA APRN Ot I10 ESSENTIAL (PRIMARY) HYPERTENSION 06/16/2019 RIP GARCIA APRN Ot S01.81XA LACERATION W/O FOREIGN BODY OF OTH PART 06/16/2019 RIP GARCIA APRN Ot W19.XXXA UNSPECIFIED FALL, INITIAL ENCOUNTER 06/16/2019 RIP GARCIA APRN Ot Z79.84 [employer] VA[employer] (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 OF ORAL HYPOGLYC 06/28/2019 RIP GARCIA APRN Ot E11 .9 TYPE 2 DIABETES MELLITUS WITHOUT COMPLIC 06/28/2019 RIP GARCIA APRN Ot F79 UNSPECIFIED INTELLECTUAL DISABILITIES 06/28/2019 RIP GARCIA APRN Ot F91 .8 OTHER CONDUCT DISORDERS 06/28/2019 RIP GARCIA APRN Ot G40.909 EPILEPSY, UNSP, NOT INTRACTABLE, WITHOUT 06/28/2019 RIP GARCIA APRN Ot I10 ESSENTIAL (PRIMARY) HYPERTENSION 06/28/2019 RIP GARCIA APRN Ot M25.561 PAIN IN RIGHT KNEE 06/28/2019 RIP GARCIA APRN Ot S83.001A UNSPECIFIED SUBLUXATION OF RIGHT PATELLA 06/28/2019 RIP GARCIA APRN Ot X58.XXXA EXPOSURE TO OTHER SPECIFIED FACTORS, INI 06/28/2019 RIP GARCIA APRN Ot Z79.84 [employer] VA[employer] (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 OF ORAL HYPOGLYC 07/02/2019 RIP GARCIA APRN Ot E11 .9 TYPE 2 DIABETES MELLITUS WITHOUT COMPLIC 07/02/2019 RIP GARCIA APRN Ot F79 UNSPECIFIED INTELLECTUAL DISABILITIES 07/02/2019 RIP GARCIA APRN Ot F91 .8 OTHER CONDUCT DISORDERS 07/02/2019 RIP GARCIA APRN Ot G40.909 EPILEPSY, UNSP, NOT INTRACTABLE, WITHOUT 07/02/2019 RIP GARCIA APRN Ot I10 ESSENTIAL (PRIMARY) HYPERTENSION 07/02/2019 RIP GARCIA APRN Ot M25.561 PAIN IN RIGHT KNEE 07/02/2019 RIP GARCIA APRN Ot S83.001A UNSPECIFIED SUBLUXATION OF RIGHT PATELLA 07/02/2019 RIP GARCIA APRN Ot X58.XXXA EXPOSURE TO OTHER SPECIFIED FACTORS, INI 07/02/2019 RIP GARCIA APRN Ot Z79.84 LONGTERM (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 OF ORAL HYPOGLYC Procedures There is no data. Results Test Result Range Complete urinalysis with reflex to cultu re - 10/10/17 18:30 Urine color determination YELLOW NRG Urine clarity determination CLEAR NR G Urine pH measurement by test strip 7 5-9 Specific gravity of urine by test strip 1.010 1.016-1.022 Urine protein assay by test strip, semi-quantitative NEGATIVE NEGATIVE Urine glucose detection by automated test strip 1+ NEGATIVE Erythrocytes detection in urine sediment by light micr oscopy NEGATIVE NEGATIVE Urine ketones detection by automated test strip 1+ NEGATIVE Urine nitrite detection by test strip NEGATIVE NEGATIVE Urine total bilirubin detection by test strip NEGA TIVE NEGATIVE Urine urobilinogen measurement by automated test strip (mass/volume) 1 mg/dL NORMAL Urine leukocyte esterase detection by dipstick 1+ NEGATIVE Automated urine sediment erythrocyte cou nt by microscopy (number/high power field) NONE NRG Automated urine sediment leukocyte count by microscopy (number/high power field) [HPF] NRG Bacteria detection in urine sediment by light microsco py NONE NRG Squamous epithelial cells detection in u rine sediment by light microscopy 0-2 NRG Crystals detection in urine sediment by light microsco py NONE NRG Casts detection in urine sediment by light microscopy NONE NRG Mucus detection in urine sediment by light microscopy NEGATIVE NRG Complete urinalysis with reflex to culture NO NRG Complete blood count (CBC) with automate d white blood cell (WBC) differential - 10/06/18 21:27 Blood leukocytes automated count (number/volume) 11.3 10*3/uL 4.3-11.0 Blood erythrocytes automated count (number/volume) 3.31 10*6/uL 4.35-5.85 Venous blood hemoglobin measurement (mass/volume) 11.1 g/dL 13.3-17.7 Blood hematocrit (volume fraction) 33 % 40-54 Automated erythrocyte mean corpuscular volume 99 [ foz_us] 80-99 Automated erythrocyte mean corpuscular h emoglobin (mass per erythrocyte) 34 pg 25-34 Automated erythrocyte mean corpuscular h emoglobin concentration measurement (mass/volume) 34 g/dL 32-36 Automated erythrocyte distribution width ratio 12. 6 % 10.0- 14.5 Automated blood platelet count (count/volume) 459 10*3/uL 130-400 Automated blood platelet mean volume measurement 8.5 [foz_us] 7.4-10.4 Automated blood neutrophils/100 leukocytes 47 % 42-75 Automated blood lymphocytes/100 leukocytes 35 % 12-44 Blood monocytes/100 leukocytes 17 % 0-12 Automated blood eosinophils/100 leukocytes 1 % 0-10 Automated blood basophils/100 leukocytes 0 % 0-10 Blood neutrophils automated count (number/volume) 5.3 10*3 1.8-7.8 Blood lymphocytes automated count (number/volume) 3.9 10*3 1.0-4.0 Blood monocytes automated count (number/volume) 1. 9 10*3 0.0-1.0 Automated eosinophil count 0.2 10*3/uL 0 .0-0.3 Automated blood basophil count (count/volume) 0.0 10*3/uL 0.0-0.1 Fibrin D-dimer FEU measurement in platel et poor plasma (mass/volume) - 10/06/18 21:27 Fibrin D-dimer FEU measurement in platelet poor plasma (mass/volume) 1.87 ug/mL 0.00-0.49 Comprehensive metabolic panel - 10/06/18 21:27 Serum or plasma sodium measurement (moles/volume) 140 mmol/L 135-145 Serum or plasma potassium measurement (moles/volume) 4.1 mmol/L 3.6-5.0 Serum or plasma chloride measurement (moles/volume) 102 mmol/L 98-107 Carbon dioxide 27 mmol/L 21-32 Serum or plasma anion gap determination (moles/volume) 11 mmol/L 5-14 Serum or plasma urea nitrogen measurement (mass/volume ) 11 mg/dL 7-18 Serum or plasma creatinine measurement (mass/volume) 0.85 mg/dL 0.60-1.30 Serum or plasma urea nitrogen/creatinine mass ratio 13 NRG Serum or plasma creatinine measurement w ith calculation of estimated glomerular filtration rate > NRG Serum or plasma glucose measurement (mass/volume) 133 mg/dL 70-105 Serum or plasma calcium measurement (mass/volume) 9.2 mg/dL 8.5-10.1 Serum or plasma total bilirubin measurement (mass/volu me) 0.3 mg/dL 0.1-1.0 Serum or plasma alkaline phosphatase willem surement (enzymatic activity/volume) 184 U/L 40-136 Serum or plasma aspartate aminotransfera se measurement (enzymatic activity/volume) 38 U/L 5-34 Serum or plasma alanine aminotransferase measurement (enzymatic activity/volume) 25 U/L 0-55 Serum or plasma protein measurement (mass/volume) 8.0 g/dL 6.4-8.2 Serum or plasma albumin measurement (mass/volume) 3.8 g/dL 3.2-4.5 CALCIUM CORRECTED 9.4 mg/dL 8.5-10.1 Serum or plasma C reactive protein measu rement (mass/volume) - 10/06/18 21:27 Serum or plasma C reactive protein measurement (mass/v olume) 4.13 mg/dL 0.00-0.50 Erythrocyte sedimentation rate by georgie gren method - 10/06/18 21:27 Erythrocyte sedimentation rate by westergren method 68 mm 0- 15 Complete blood count (CBC) with automate d white blood cell (WBC) differential - 02/13/19 13:26 Blood leukocytes automated count (number/volume) 4.9 10*3/uL 4.3-11.0 Blood erythrocytes automated count (number/volume) 3.90 10*6/uL 4.35-5.85 Venous blood hemoglobin measurement (mass/volume) 12.7 g/dL 13.3-17.7 Blood hematocrit (volume fraction) 38 % 40-54 Automated erythrocyte mean corpuscular volume 97 [ foz_us] 80-99 Automated erythrocyte mean corpuscular h emoglobin (mass per erythrocyte) 33 pg 25-34 Automated erythrocyte mean corpuscular h emoglobin concentration measurement (mass/volume) 34 g/dL 32-36 Automated erythrocyte distribution width ratio 13. 1 % 10.0- 14.5 Automated blood platelet count (count/volume) 216 10*3/uL 130-400 Automated blood platelet mean volume measurement 8.6 [foz_us] 7.4-10.4 Automated blood neutrophils/100 leukocytes 44 % 42-75 Automated blood lymphocytes/100 leukocytes 41 % 12-44 Blood monocytes/100 leukocytes 12 % 0-12 Automated blood eosinophils/100 leukocytes 2 % 0-10 Automated blood basophils/100 leukocytes 0 % 0-10 Blood neutrophils automated count (number/volume) 2.2 10*3 1.8-7.8 Blood lymphocytes automated count (number/volume) 2.0 10*3 1.0-4.0 Blood monocytes automated count (number/volume) 0. 6 10*3 0.0-1.0 Automated eosinophil count 0.1 10*3/uL 0 .0-0.3 Automated blood basophil count (count/volume) 0.0 10*3/uL 0.0-0.1 Comprehensive metabolic panel - 02/13/19 13:26 Serum or plasma sodium measurement (moles/volume) 142 mmol/L 135-145 Serum or plasma potassium measurement (moles/volume) 3.8 mmol/L 3.6-5.0 Serum or plasma chloride measurement (moles/volume) 103 mmol/L 98-107 Carbon dioxide 25 mmol/L 21-32 Serum or plasma anion gap determination (moles/volume) 14 mmol/L 5-14 Serum or plasma urea nitrogen measurement (mass/volume ) 16 mg/dL 7-18 Serum or plasma creatinine measurement (mass/volume) 0.89 mg/dL 0.60-1.30 Serum or plasma urea nitrogen/creatinine mass ratio 18 NRG Serum or plasma creatinine measurement w ith calculation of estimated glomerular filtration rate > NRG Serum or plasma glucose measurement (mass/volume) 147 mg/dL 70-105 Serum or plasma calcium measurement (mass/volume) 9.3 mg/dL 8.5-10.1 Serum or plasma total bilirubin measurement (mass/volu me) 0.3 mg/dL 0.1-1.0 Serum or plasma alkaline phosphatase willem surement (enzymatic activity/volume) 154 U/L 40-136 Serum or plasma aspartate aminotransfera se measurement (enzymatic activity/volume) 88 U/L 5-34 Serum or plasma alanine aminotransferase measurement (enzymatic activity/volume) 79 U/L 0-55 Serum or plasma protein measurement (mass/volume) 7.7 g/dL 6.4-8.2 Serum or plasma albumin measurement (mass/volume) 3.9 g/dL 3.2-4.5 CALCIUM CORRECTED 9.4 mg/dL 8.5-10.1 Serum or plasma salicylates measurement (mass/volume) - 02/13/19 13:26 Serum or plasma salicylates measurement (mass/volume) < mg/dL 5.0-20.0 Serum or plasma acetaminophen measuremen t (mass/volume) - 02/13/19 13:26 Serum or plasma acetaminophen measurement (mass/volume ) < ug/mL 10-30 Serum or plasma ethanol measurement (mas s/volume) - 02/13/19 13:26 Serum or plasma ethanol measurement (mass/volume) < mg/dL <10 Complete urinalysis with reflex to cultu re - 02/13/19 16:15 Urine color determination YELLOW NRG Urine clarity determination SLIGHTLY CLOUDY NRG Urine pH measurement by test strip 6 5-9 Specific gravity of urine by test strip 1.025 1.016-1.022 Urine protein assay by test strip, semi-quantitative 2+ NEGATIVE Urine glucose detection by automated test strip NE GATIVE NEGATIVE Erythrocytes detection in urine sediment by light micr oscopy 3+ NEGATIVE Urine ketones detection by automated test strip NE GATIVE NEGATIVE Urine nitrite detection by test strip NEGATIVE NEGATIVE Urine total bilirubin detection by test strip NEGA TIVE NEGATIVE Urine urobilinogen measurement by automated test strip (mass/volume) 4 mg/dL NORMAL Urine leukocyte esterase detection by dipstick 2+ NEGATIVE Automated urine sediment erythrocyte cou nt by microscopy (number/high power field) [HPF] NRG Automated urine sediment leukocyte count by microscopy (number/high power field) [HPF] NRG Bacteria detection in urine sediment by light microsco py TRACE NRG Squamous epithelial cells detection in u rine sediment by light microscopy 10-25 NRG Crystals detection in urine sediment by light microsco py NONE NRG Casts detection in urine sediment by light microscopy NONE NRG Mucus detection in urine sediment by light microscopy NEGATIVE NRG Complete urinalysis with reflex to culture YES NRG Urine drug screening test - 02/13/19 16: 15 Urine phencyclidine detection by screening method NEGATIVE NEGATIVE Urine benzodiazepines detection by screening method NEGATIVE NEGATIVE Urine cocaine detection NEGATIVE NEGATI VE Urine amphetamines detection by screening method N EGATIVE NEGATIVE Urine methamphetamine detection by screening method NEGATIVE NEGATIVE Urine cannabinoids detection by screening method N EGATIVE NEGATIVE Urine opiates detection by screening method NEGATI VE NEGATIVE Urine barbiturates detection NEGATIVE N EGATIVE Screening urine tricyclic antidepressants detection NEGATIVE NEGATIVE Urine methadone detection by screening method NEGA TIVE NEGATIVE Urine oxycodone detection NEGATIVE NEGA TIVE Urine propoxyphene detection NEGATIVE N EGATIVE Bacterial urine culture - 02/13/19 16:15 Bacterial urine culture GRAM POS M NRG COLONY COUNT 10,000 CFU/ML NRG FTX;REPORTABLE NO FURTHER TESTING NRG Capillary blood glucose measurement by g lucometer (mass/volume) - 02/14/19 12:32 Capillary blood glucose measurement by glucometer (mas s/volume) 146 mg/dL 70-110 Complete blood count (CBC) with automate d white blood cell (WBC) differential - 02/15/19 03:30 Blood leukocytes automated count (number/volume) 10.2 10*3/uL 4.3-11.0 Blood erythrocytes automated count (number/volume) 4.18 10*6/uL 4.35-5.85 Venous blood hemoglobin measurement (mass/volume) 13.5 g/dL 13.3-17.7 Blood hematocrit (volume fraction) 40 % 40-54 Automated erythrocyte mean corpuscular volume 95 [ foz_us] 80-99 Automated erythrocyte mean corpuscular h emoglobin (mass per erythrocyte) 32 pg 25-34 Automated erythrocyte mean corpuscular h emoglobin concentration measurement (mass/volume) 34 g/dL 32-36 Automated erythrocyte distribution width ratio 13. 0 % 10.0- 14.5 Automated blood platelet count (count/volume) 267 10*3/uL 130-400 Automated blood platelet mean volume measurement 9.0 [foz_us] 7.4-10.4 Automated blood neutrophils/100 leukocytes 46 % 42-75 Automated blood lymphocytes/100 leukocytes 37 % 12-44 Blood monocytes/100 leukocytes 15 % 0-12 Automated blood eosinophils/100 leukocytes 1 % 0-10 Automated blood basophils/100 leukocytes 0 % 0-10 Blood neutrophils automated count (number/volume) 4.7 10*3 1.8-7.8 Blood lymphocytes automated count (number/volume) 3.8 10*3 1.0-4.0 Blood monocytes automated count (number/volume) 1. 6 10*3 0.0-1.0 Automated eosinophil count 0.1 10*3/uL 0 .0-0.3 Automated blood basophil count (count/volume) 0.0 10*3/uL 0.0-0.1 Whole blood basic metabolic panel - 08/05 03:30 Serum or plasma sodium measurement (moles/volume) 138 mmol/L 135-145 Serum or plasma potassium measurement (moles/volume) 3.9 mmol/L 3.6-5.0 Serum or plasma chloride measurement (moles/volume) 96 mmol/L 98-107 Carbon dioxide 25 mmol/L 21-32 Serum or plasma anion gap determination (moles/volume) 17 mmol/L 5-14 Serum or plasma urea nitrogen measurement (mass/volume ) 15 mg/dL 7-18 Serum or plasma creatinine measurement (mass/volume) 0.89 mg/dL 0.60-1.30 Serum or plasma urea nitrogen/creatinine mass ratio 17 NRG Serum or plasma creatinine measurement w ith calculation of estimated glomerular filtration rate > NRG Serum or plasma glucose measurement (mass/volume) 103 mg/dL 70-105 Serum or plasma calcium measurement (mass/volume) 9.7 mg/dL 8.5-10.1 [id number] - 02/15/19 03:30 [id number] 58.4 ug/mL 50.0-100.0 Serum or plasma carbamazepine measuremen t (mass/volume) - 02/15/19 03:30 Serum or plasma carbamazepine measurement (mass/volume ) 6.2 ug/mL 4.0-12.0 Capillary blood glucose measurement by g lucometer (mass/volume) - 02/22/19 15:14 Capillary blood glucose measurement by glucometer (mas s/volume) 83 mg/dL 70-110 Complete blood count (CBC) with automate d white blood cell (WBC) differential - 02/22/19 15:17 Blood leukocytes automated count (number/volume) 7.9 10*3/uL 4.3-11.0 Blood erythrocytes automated count (number/volume) 4.08 10*6/uL 4.35-5.85 Venous blood hemoglobin measurement (mass/volume) 13.4 g/dL 13.3-17.7 Blood hematocrit (volume fraction) 39 % 40-54 Automated erythrocyte mean corpuscular volume 96 [ foz_us] 80-99 Automated erythrocyte mean corpuscular h emoglobin (mass per erythrocyte) 33 pg 25-34 Automated erythrocyte mean corpuscular h emoglobin concentration measurement (mass/volume) 34 g/dL 32-36 Automated erythrocyte distribution width ratio 13. 0 % 10.0- 14.5 Automated blood platelet count (count/volume) 314 10*3/uL 130-400 Automated blood platelet mean volume measurement 8.5 [foz_us] 7.4-10.4 Automated blood neutrophils/100 leukocytes 47 % 42-75 Automated blood lymphocytes/100 leukocytes 41 % 12-44 Blood monocytes/100 leukocytes 11 % 0-12 Automated blood eosinophils/100 leukocytes 1 % 0-10 Automated blood basophils/100 leukocytes 0 % 0-10 Blood neutrophils automated count (number/volume) 3.7 10*3 1.8-7.8 Blood lymphocytes automated count (number/volume) 3.2 10*3 1.0-4.0 Blood monocytes automated count (number/volume) 0. 9 10*3 0.0-1.0 Automated eosinophil count 0.1 10*3/uL 0 .0-0.3 Automated blood basophil count (count/volume) 0.0 10*3/uL 0.0-0.1 Comprehensive metabolic panel - 02/22/19 15:17 Serum or plasma sodium measurement (moles/volume) 141 mmol/L 135-145 Serum or plasma potassium measurement (moles/volume) 4.7 mmol/L 3.6-5.0 Serum or plasma chloride measurement (moles/volume) 102 mmol/L 98-107 Carbon dioxide 26 mmol/L 21-32 Serum or plasma anion gap determination (moles/volume) 13 mmol/L 5-14 Serum or plasma urea nitrogen measurement (mass/volume ) 16 mg/dL 7-18 Serum or plasma creatinine measurement (mass/volume) 1.01 mg/dL 0.60-1.30 Serum or plasma urea nitrogen/creatinine mass ratio 16 NRG Serum or plasma creatinine measurement w ith calculation of estimated glomerular filtration rate > NRG Serum or plasma glucose measurement (mass/volume) 95 mg/dL 70-105 Serum or plasma calcium measurement (mass/volume) 9.7 mg/dL 8.5-10.1 Serum or plasma total bilirubin measurement (mass/volu me) 0.3 mg/dL 0.1-1.0 Serum or plasma alkaline phosphatase willem surement (enzymatic activity/volume) 148 U/L 40-136 Serum or plasma aspartate aminotransfera se measurement (enzymatic activity/volume) 42 U/L 5-34 Serum or plasma alanine aminotransferase measurement (enzymatic activity/volume) 37 U/L 0-55 Serum or plasma protein measurement (mass/volume) 8.6 g/dL 6.4-8.2 Serum or plasma albumin measurement (mass/volume) 4.3 g/dL 3.2-4.5 CALCIUM CORRECTED 9.5 mg/dL 8.5-10.1 Complete urinalysis with reflex to cultu re - 02/22/19 15:42 Urine color determination NIESHA NRG Urine clarity determination CLEAR NR G Urine pH measurement by test strip 6.5 5-9 Specific gravity of urine by test strip 1.020 1.016-1.022 Urine protein assay by test strip, semi-quantitative 2+ NEGATIVE Urine glucose detection by automated test strip 1+ NEGATIVE Erythrocytes detection in urine sediment by light micr oscopy 2+ NEGATIVE Urine ketones detection by automated test strip 1+ NEGATIVE Urine nitrite detection by test strip POSITIVE NEGATIVE Urine total bilirubin detection by test strip 1+ NEGATIVE Urine urobilinogen measurement by automated test strip (mass/volume) 4 mg/dL NORMAL Urine leukocyte esterase detection by dipstick 1+ NEGATIVE Automated urine sediment erythrocyte cou nt by microscopy (number/high power field) [HPF] NRG Automated urine sediment leukocyte count by microscopy (number/high power field) RARE NRG Bacteria detection in urine sediment by light microsco py TRACE NRG Squamous epithelial cells detection in u rine sediment by light microscopy 0-2 NRG Crystals detection in urine sediment by light microsco py NONE NRG Casts detection in urine sediment by light microscopy NONE NRG Mucus detection in urine sediment by light microscopy NEGATIVE NRG Complete urinalysis with reflex to culture YES NRG Bacterial urine culture - 02/22/19 15:42 Bacterial urine culture NG NRG Capillary blood glucose measurement by g lucometer (mass/volume) - 02/22/19 16:17 Capillary blood glucose measurement by glucometer (mas s/volume) 157 mg/dL 70-110 Encounters ACCT No. Visit Date/Time Discharge Status Pt. Type Provider Facility Loc./Unit Complaint [id number] 06/28/2019 18:23:00 19:50:00 DIS Emergency RIP GARCIA APRN [facility] ER R KNEE DISLOCATION [id number] 06/16/2019 11:19:00 13:50:00 DIS Emergency RIP GARCIA APRN [facility] ER FALL - CHIN LAC [id number] 04/04/2019 08:13:00 11:15:00 DIS Outpatient CONG MILLARD MD [facility] ER FALL [id number] 02/22/2019 15:11:00 16:55:00 DIS Emergency GRAHAM MARTINEZ [facility] ER MEDICATION ISSUES [id number] 02/13/2019 18:00:00 07:42:00 DIS Inpatient ALEJO RANDLE DO [facility] ICU DEVELOPMENT DISABILITY,AGGRESSIVE BEHAVIOR [id number] 01/13/2019 21:59:00 22:30:00 DIS Emergency EASTON HOWE [facility] ER FELL AND HIT FACE [id number] 10/08/2018 10:48:00 23:59:59 CLS Outpatient ALEJO RANDLE DO [facility] RAD RIGHT FOREARM A ND ELBOW SWELLING [id number] 10/06/2018 20:47:00 22:06:00 DIS Emergency RIP GARCIA APRN [facility] ER ARM SWELLING [id number] 08/17/2018 17:15:00 23:59:59 CLS Outpatient ALEJO RANDLE DO [facility] RAD L ELBOW SWELLIN G [id number] 08/04/2018 09:34:00 23:59:59 CLS Outpatient ALEJO RANDLE DO [facility] RAD LEFT ELBOW SWOL TAMMY [id number] 10/10/2017 16:52:00 19:20:00 DIS Emergency ROSA MONTOYA MD [facility] ER HAS NOT USED BATHROOM A LL DAY/ NO APPETITE [id number] 08/12/2017 16:20:00 18:33:00 DIS Emergency ROSA MONTOYA MD [facility] ER HEAD INJ/ODD BEHAVIOR
== END 2019-06-16 13:50 | disposition home or self-care (01) ==
LOC: EDUNIT# 11:18 → ER 11:19
DX: S01.81XA Laceration without foreign body of other part of head, initial encounter (principal); I10 Essential (primary) hypertension; E11.9 Type 2 diabetes mellitus without complications; G40.909 Epilepsy, unspecified, not intractable, without status epilepticus; F91.8 Other conduct disorders; Z79.84 Long term (current) use of oral hypoglycemic drugs; W19.XXXA Unspecified fall, initial encounter
CPT/HCPCS: 12011; 90471; 90715; 96372

== ENCOUNTER 2019-06-28 18:22 | Emergency (ER) | payer MEDICAID ==
[~2019-06-28] VITALS: Ht 165.1 cm; Wt 52.3 kg
[~2019-06-28 18:22] MED LIST changes: +CEPH-507 PO
--- NOTE | 2019-06-28 18:23 | NUR ---
Unable to obtain full set of vital signs d/t uncooperative behavior.
--- NOTE | 2019-06-28 18:30 | ED Lower Extremity ---
General Stated Complaint: R KNEE DISLOCATION Source: EMS, caregiver Exam Limitations: no limitations History of Present Illness Date Seen by Provider: Jun 28, 2019 Time Seen by Provider: 18:27 Initial Comments To ER per EMS from a long term where he resides due to intellectual disability. He had an unwitnessed apparent right patellar dislocation, they state he was sitting on the floor drinking a juice box and then he had deformity to the right knee and wouldn't extend it, no witnessed fall. EMS arrived, loaded him onto the cot and straighten his leg out. They still noted deformity to the right knee. Upon arrival to ER they state that his knee now looks normal, suspect it reduced in route with straightening of the leg. Onset: just prior to arrival Severity: moderate Pain/Injury Location: right knee Method of Injury: unknown Allergies and Home Medications Allergies Coded Allergies: No Known Drug Allergies (Unverified , 01/13/19) Home Medications Carbamazepine 100 Mg Tab.chew, 300 MG PO HS, (Reported) Cephalexin 500 Mg Capsule, 500 MG PO TID Prescribed by: RIP GARCIA on 06/16/19 1241 Docusate Sodium 100 Mg Capsule, 100 MG PO BID, (Reported) Escitalopram Oxalate 5 Mg Tablet, 5 MG PO DAILY, (Reported) Ibuprofen 200 Mg Tablet, 200 MG PO Q6H PRN for PAIN-MILD, (Reported) Lorazepam 2 Mg/1 Ml Oral.conc, 1 MG PO Q6H PRN for AGITATION Prescribed by: DANIEL MANCINI on 02/16/19 0753 Metformin HCl 500 Mg Tablet, 250 MG PO DAILY, (Reported) TAKES 1/2 OF A 500MG TAB ONCE DAILY Nitrofurantoin Monohyd/M-Cryst 100 Mg Capsule, 1 TAB PO BID Prescribed by: GRAHAM MARTINEZ on 02/22/19 1645 Polyethylene Glycol 3350 17 Gm Powd.pack, 17 GM PO QID PRN for CONSTIPATION-1ST LINE Prescribed by: ROSA MONTOYA on 10/10/17 1916 Valproic Acid 250 Mg Capsule, 10 ML PO TID, (Reported) Patient Home Medication List Home Medication List Reviewed: Yes Review of Systems Constitutional: see HPI EENTM: see HPI Respiratory: no symptoms reported Cardiovascular: no symptoms reported Genitourinary: no symptoms reported Musculoskeletal: see HPI Skin: no symptoms reported Psychiatric/Neurological: No Symptoms Reported Past Fyagjbm-Uixawa-Rfctyd Hx Patient Social History 2nd Hand Smoke Exposure: No Recent Foreign Travel: No Contact w/Someone Who Travel: No Recent Hopitalizations: No Immunizations Up To Date Tetanus Booster (TDap): Unknown Seasonal Allergies Seasonal Allergies: No Past Medical History Surgeries: No Respiratory: No Cardiac: Yes Hypertension 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 1.0oz. [id number]; 18.00 BMI Method:Estimated General Appearance: WD/WN, no apparent distress HEENT: PERRL/EOMI, normal ENT inspection Neck: non-tender, full range of motion Respiratory: no respiratory distress, no accessory muscle use Hips: bilateral hip non-tender, bilateral hip normal inspection, bilateral hip normal range of motion Legs: bilateral leg non-tender, bilateral leg normal inspection, bilateral leg normal range of motion Knees: bilateral knee non-tender, bilateral knee normal inspection, bilateral knee normal range of motion, bilateral knee other (he is able to flex both knees there is no deformity no abrasions to either knee) Ankles: bilateral ankle non-tender, bilateral ankle normal inspection, bilateral ankle normal range of motion Feet: bilateral foot non-tender, bilateral foot other (posterior tibial pulse and dorsalis pedis pulse +1 bilateral lower cavity) Neurologic/Psychiatric: alert Skin: normal color, warm/dry Procedures/Interventions Suture Size: 4-0 Progress/Results/Core Measures Results/Orders My Orders Orders - RIP GARCIA APRN Knee, Right, 3 Views (06/28/19 18:27) Departure Impression Primary Impression: Patellar subluxation Qualified Codes: S83.001A - Unspecified subluxation of right patella, in itial encounter Disposition: 01 HOME, SELF-CARE Condition: Stable Departure-Patient Inst. Decision time for Depature: 18:32 Referrals: ALEJO RANDLE DO (PCP/Family) Primary Care Physician Patient Instructions: NO INSTRUCTIONS GIVEN Add. Discharge Instructions: Keep the Loc wrap on the right knee as much as he'll tolerate for the next week. Tylenol and Motrin are fine if he appears to be in pain. Return to ER for any concerns in the meantime. RIP GARCIA APRN Jun 28, 2019 18:30 POS
[2019-06-28] MEDS ORDERED: HYDROcodone/APAP 5 MG/325 MG (LORTAB) TAB PO ONE (18:45)
[2019-06-28] MEDS ORDERED: RX-HYDROCODONE/APAP 5/325 MG #4 TAB PK PO PRN (19:30)
--- NOTE | 2019-06-28 19:37 | Diagnostic Imaging Report ---
EXAMINATION: Right knee 3 views INDICATION: Trauma. COMPARISON: None available. FINDINGS: Nonstandard views of the right knee were obtained within the in somewhat of an obliquity. The obliquity makes the patella project medially, correlate for physical exam evidence of patellar dislocation. There is swelling about the soft tissues of the right knee but no fracture is seen. Incidental note is made of a fabella. IMPRESSION: 1. Nonstandard views of the right knee with the patella projecting medially, this is felt to be related to projection, but correlate for clinical evidence of patellar dislocation. 2. Soft tissue swelling of the right knee without fracture seen. Dictated by: Dictated on workstation # [id number]
[2019-06-28 19:50] VITALS: BP 0/0
--- NOTE | 2019-06-28 19:50 | NUR ---
Unable to obtain full set of discharge vital signs d/t pt uncooperative behavior.
== END 2019-06-28 19:50 | disposition home or self-care (01) ==
LOC: EDUNIT# 18:22 → ER 18:23
DX: S83.001A Unspecified subluxation of right patella, initial encounter (principal); I10 Essential (primary) hypertension; G40.909 Epilepsy, unspecified, not intractable, without status epilepticus; E11.9 Type 2 diabetes mellitus without complications; F91.8 Other conduct disorders; F79 Unspecified intellectual disabilities; Z79.84 Long term (current) use of oral hypoglycemic drugs; X58.XXXA Exposure to other specified factors, initial encounter
CPT/HCPCS: 73562

== ENCOUNTER 2019-08-06 08:56 | Emergency (ER) | payer MEDICAID ==
[~2019-08-06] VITALS: Ht 147 cm; Wt 42.0 kg
[~2019-08-06 08:56] MED LIST changes: -IBUP-2055 PO; +IBUP-2473 PO; -TRAZ-222 PO; +TRZ50T PO
--- NOTE | 2019-08-06 10:13 | NUR ---
SEE LIST FOR CURRENT MEDS
--- NOTE | 2019-08-06 11:33 | ED General ---
General Chief Complaint: General Problems/Pain Stated Complaint: WEIGHT LOSS;COUGH;RUNNY NOSE Nursing Triage Note: PT TO ROOM 6 W MOTHER, PT IS RESIDENT OF PEMAQUID. MOM STATES PT HAS LOSE WT FROM 115# IN NOV TO 92# TODAY. STATES WAS STARTED ON APPETITE ENHANCEMENT PILL LAST WEEK. PROB CONSTIPATED. RUNNY NOSE. HAS SEEN DR RANDLE LAST WEEK. PT W MOTHER AT THIS X. Nursing Sepsis Screen: No Definite Risk Source of Information: Family (mother) Exam Limitations: No Limitations History of Present Illness Date Seen by Provider: Aug 06, 2019 Time Seen by Provider: 11:20 Initial Comments 23-year-old male who is brought to the emergency room by his mother for concerns that he is losing too much weight and loss of appetite. He is nonverbal and resides at [place] but tonight as she wanted him checked out. She was concerned that he may be constipated, or have the flu. The patient is drinking a Hand's drink during exam without difficulty. He appears to be in no distress or discomfort. He is prone to urinary tract infections. Timing/Duration: Other (2 weeks) Associated Systoms: Loss of Appetite Allergies and Home Medications Allergies Coded Allergies: No Known Drug Allergies (Unverified , 01/13/19) Home Medications Baloxavir Marboxil 40 Mg Tablet, 40 MG PO ONCE Prescribed by: GRAHAM MARTINEZ on 08/06/19 1508 Carbamazepine 100 Mg Tab.chew, 300 MG PO HS, (Reported) Cephalexin 500 Mg Capsule, 500 MG PO TID Prescribed by: RIP GARCIA on 06/16/19 1241 Docusate Sodium 100 Mg Capsule, 100 MG PO BID, (Reported) Escitalopram Oxalate 5 Mg Tablet, 5 MG PO DAILY, (Reported) Ibuprofen 200 Mg Tablet, 200 MG PO Q6H PRN for PAIN-MILD, (Reported) Lorazepam 2 Mg/1 Ml Oral.conc, 1 MG PO Q6H PRN for AGITATION Prescribed by: DANIEL MANCINI on 02/16/19 0753 Metformin HCl 500 Mg Tablet, 250 MG PO DAILY, (Reported) TAKES 1/2 OF A 500MG TAB ONCE DAILY Nitrofurantoin Monohyd/M-Cryst 100 Mg Capsule, 1 TAB PO BID Prescribed by: GRAHAM MARTINEZ on 02/22/19 1645 Polyethylene Glycol 3350 17 Gm Powd.pack, 17 GM PO QID PRN for CONSTIPATION-1ST LINE Prescribed by: ROSA MONTOYA on 10/10/17 191 Valproic Acid 250 Mg Capsule, 10 ML PO TID, (Reported) Patient Home Medication List Home Medication List Reviewed: Yes Review of Systems Review of Systems Constitutional: see HPI; No chills, No fever; weight loss Gastrointestinal: see HPI, loss of appetite All Other Systems Reviewed Negative Unless Noted: Yes Past Gnwmhzi-Zkpnko-Loaviq Hx Past Med/Social Hx: Reviewed Nursing Past Med/Soc Hx Patient Social History Alcohol Use: Denies Use Recreational Drug Use: No Smoking Status: Never a Smoker 2nd Hand Smoke Exposure: No Recent Foreign Travel: No Contact w/Someone Who Travel: No Recent Infectious Disease Expo: No Recent Hopitalizations: No Physical Abuse: No Sexual Abuse: No Immunizations Up To Date Tetanus Booster (TDap): Unknown Seasonal Allergies Seasonal Allergies: No Past Medical History Surgeries: No Respiratory: No Cardiac: Yes Hypertension 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 1.0oz. 44.138402ka; 19.00 BMI Method:Estimated General Appearance: No Apparent Distress, WD/WN HEENT: PERRL/EOMI, TMs Normal, Normal ENT Inspection, Pharynx Normal Neck: Full Range of Motion, Normal Inspection, Non Tender, Supple, Carotid Bruit Respiratory: Chest Non Tender, Lungs Clear, Normal Breath Sounds, No Accessory Muscle Use, No Respiratory Distress Cardiovascular: Regular Rate, Rhythm, No Edema, No Gallop, No JVD, No Murmur, Normal Peripheral Pulses Gastrointestinal: Normal Bowel Sounds, No Organomegaly, No Pulsatile Mass, Non Tender, Soft Extremity: Normal Capillary Refill Skin: Normal Color, Warm/Dry Procedures/Interventions Suture Size: 4-0 Progress/Results/Core Measures Suspected Sepsis Recent Fever Within 48 Hours: No Infection Criteria Present: None New/Unexplained Altered Menta: No Sepsis Screen: No Definite Risk SIRS Temperature: Pulse: 85 Respiratory Rate: 18 Blood Pressure 133 /81 Mean: 98 Results/Orders Lab Results Micro Results My Orders Vital Signs/I&O Capillary Refill : Less Than 3 Seconds Blood Pressure Mean: 98 Progress Note : Time: 15:05 Progress Note I have seen and evaluated the patient. I have informed the patients mother of laboratory and imaging studies.I believe that the elevated liver enzymes are cause by the vraylar that was started in may. Previous labs were with in normal limits. The patient will follow up with Dr. Randle for further evaluation of elevated liver enzymes. Mother agrees with plan of care. Departure Impression Primary Impression: Influenza B Additional Impressions: Elevated liver enzymes Constipation Disposition: HOME, SELF-CARE Condition: Stable/Unchanged Departure-Patient Inst. Decision time for Depature: 15:05 Referrals: ALEJO RANDLE DO (PCP/Family) Primary Care Physician Patient Instructions: Constipation, Adult (DC), Flu, Liver Function Test Add. Discharge Instructions: Call Dr. Randle's office today to discuss evaluation of her medications because elevated liver enzymes. Continue to use his MiraLAX as needed for constipation. You may use 1 capful twice a day until he is having regular bowel movements. Ibuprofen as needed for fever. Try to refrain from using Tylenol. Return back to the emergency room for worsening symptoms or concerns as needed. All discharge instructions reviewed with patient and/or family. Voiced understanding. Scripts Baloxavir Marboxil (Xofluza) 40 Mg Tablet 40 MG PO ONCE for 1 Day, #1 TAB Prov: GRAHAM MARTINEZ 08/06/19 Copy Copies To 1: ALEJO RANDLE TRAVIS Aug 06, 2019 11:33
[2019-08-06 12:18] LABS: BASOPHILS % (AUTO) 1 % (0-10); EOSINOPHILS % (AUTO) 0 % (0-10); HEMATOCRIT 36 % (40-54); HEMOGLOBIN 12.1 G/DL (13.3-17.7); LYMPHOCYTES # (AUTO) 1.7 X 10^3 (1.0-4.0); LYMPHOCYTES % (AUTO) 26 % (12-44); MEAN CORPUSCULAR HEMOGLOBIN 33 PG (25-34); MEAN CORPUSCULAR HGB CONC 34 G/DL (32-36); MEAN CORPUSCULAR VOLUME 97 FL (80-99); MEAN PLATELET VOLUME 9.1 FL (7.4-10.4); MONOCYTES % (AUTO) 17 % (0-12); NEUTROPHILS # (AUTO) 3.6 X 10^3 (1.8-7.8); NEUTROPHILS % (AUTO) 57 % (42-75); PLATELET COUNT 191 10^3/uL (130-400); RED CELL DISTRIBUTION WIDTH 13.1 % (10.0-14.5); WHITE BLOOD COUNT 6.3 10^3/uL (4.3-11.0)
--- NOTE | 2019-08-06 12:19 | NUR ---
FLU B + REPORTED TO PROVIDER
[2019-08-06 12:43] LABS: ALANINE AMINOTRANSFERASE 312 U/L (0-55); ALBUMIN 3.8 GM/DL (3.2-4.5); ALKALINE PHOSPHATASE 149 U/L (40-136); AMYLASE 94 U/L (25-125); BILIRUBIN,TOTAL 0.2 MG/DL (0.1-1.0); BUN/CREATININE RATIO 18; CALCIUM 8.5 MG/DL (8.5-10.1); CARBON DIOXIDE 22 MMOL/L (21-32); CHLORIDE 102 MMOL/L (98-107); CREATININE SERUM 0.77 MG/DL (0.60-1.30); GFR ESTIMATED > 60; GLUCOSE 137 MG/DL (70-105); LIPASE 66 U/L (8-78); POTASSIUM 4.1 MMOL/L (3.6-5.0); SODIUM 135 MMOL/L (135-145)
--- NOTE | 2019-08-06 12:56 | Diagnostic Imaging Report ---
INDICATION: Evaluate for constipation. TIME OF EXAM: 12:28 p.m. FINDINGS: The heart size is normal. Lungs appear to be clear. Right hemidiaphragm is mildly elevated. No free air is detected. Bowel gas pattern is nonobstructive. There is a moderate amount of stool in the rectum and sigmoid colon with milder stool within the ascending and descending colon. Small bowel is nondilated. No pathologic calcifications are seen. IMPRESSION: Moderate stool load in the rectum and sigmoid consistent with constipation. Dictated by: Dictated on workstation # [id number]
[2019-08-06 14:07] LABS: BILIRUBIN,URINE NEGATIVE (NEGATIVE); CLARITY,URINE CLEAR; COLOR,URINE YELLOW; GLUCOSE, URINE (UA) NEGATIVE (NEGATIVE); KETONES,URINE NEGATIVE (NEGATIVE); LEUKOCYTE ESTERASE ,URINE NEGATIVE (NEGATIVE); NITRITE,URINE NEGATIVE (NEGATIVE); PROTEIN,URINE TRACE (NEGATIVE)
[2019-08-06 14:16] LABS: BACTERIA,URINE NEGATIVE /HPF; SQUAMOUS EPITHELIAL CELL,UR RARE /HPF
--- NOTE | 2019-08-06 14:35 | Diagnostic Imaging Report ---
PROCEDURE: CT abdomen and pelvis without contrast. TECHNIQUE: Multiple contiguous axial images were obtained through the abdomen and pelvis without the use of intravenous contrast. Auto Exposure Controls were utilized during the CT exam to meet ALARA standards for radiation dose reduction. INDICATION: Influenza and elevated liver enzymes. COMPARISON: No prior studies are available for comparison. FINDINGS: The lung bases are clear. No discrete liver mass is identified. Gallbladder is not well-visualized and may be contracted. Pancreas and spleen are grossly unremarkable. No renal calculi or hydronephrosis is detected. Moderate stool within the colon, particularly the sigmoid and rectum is noted consistent with constipation. There is no free fluid or fluid collection. No free air is identified. Aorta appears nonaneurysmal. IMPRESSION: Moderate stool consistent with constipation. No other abnormality is detected. Dictated by: Dictated on workstation # [id number]
[2019-08-06] MEDS ORDERED: BALO40TA PO (15:08)
[2019-08-06 15:15] VITALS: BP 122/78
== END 2019-08-06 15:14 | disposition home or self-care (01) ==
LOC: EDUNIT# 08:56 → ER 08:57
DX: J10.1 Influenza due to other identified influenza virus with other respiratory manifestations (principal); R74.8 Abnormal levels of other serum enzymes; K59.00 Constipation, unspecified; I10 Essential (primary) hypertension; G40.909 Epilepsy, unspecified, not intractable, without status epilepticus; Z79.84 Long term (current) use of oral hypoglycemic drugs; Z86.59 Personal history of other mental and behavioral disorders
CPT/HCPCS: 36415; 51701; 74022; 74176; 80053; 81000; 82150; 83690; 85025; 87804

== ENCOUNTER → 2019-08-21 | Outpatient (CLI) | payer MEDICAID ==
[~2019-08-21] MED LIST changes: +BALO40TA PO
--- NOTE | 2019-08-21 16:26 | Diagnostic Imaging Report ---
INDICATION: Swelling of the index finger. COMPARISON: None. FINDINGS: Four radiographic views of the left hand were obtained. There is acute-appearing obliquely oriented mildly displaced fracture involving the second proximal phalanx. There is no intra-articular extension. Joint spaces are maintained. No unexpected radiopaque foreign bodies are seen. There is mild soft tissue edema of the second digit. IMPRESSION: 1. Fracture of the second proximal phalanx as described above. Dictated by: Dictated on workstation # [id number]
== END ==
LOC: RAD 13:17
PROVIDERS: ATTEND Family Medicine
DX: S62.611A Displaced fracture of proximal phalanx of left index finger, initial encounter for closed fracture (principal); X58.XXXA Exposure to other specified factors, initial encounter
CPT/HCPCS: 73130

== ENCOUNTER 2019-09-07 13:27 | Emergency (ER) | payer MEDICAID ==
[~2019-09-07] VITALS: Ht 147 cm; Wt 54.0 kg
--- NOTE | 2019-09-07 13:41 | NUR ---
PT MOVED TO FAMILY WAITING ROOM DUE TO PT RUNNING FROM FAST TRACK. ITEMS REMOVED AND PLACED AT NURSES DESK.
--- NOTE | 2019-09-07 13:53 | ED Head Injury ---
General Chief Complaint: Head/Cervical Problems Stated Complaint: FALL;HEAD SWELLING Nursing Triage Note: PT HAD A SEIZURE ON TUE AND FELL. MOM NOTICED TODAY THE LEFT SIDE OF HIS HEAD SWELLING. UNABLE TO GET VITALS DUE TO MENTAL CONDITION AND CONSTANT MOVEMENT. Source: patient, family Exam Limitations: no limitations History of Present Illness Date Seen by Provider: Sep 07, 2019 Time Seen by Provider: 13:51 Initial Comments To ER by mother from home with reports of head injury. He is in a detention, severely mentally handicapped/developmentally delayed. He had a seizure 2 days ago and fell now has swelling to the left side of his head but is otherwise acting normal without vomiting. Occurred: just prior to arrival Severity: mild Loss of Consciousness: no loss of consciousness Associated Systoms: No Nausea/Vomiting Allergies and Home Medications Allergies Coded Allergies: No Known Drug Allergies (Unverified , 01/13/19) Home Medications Baloxavir Marboxil 40 Mg Tablet, 40 MG PO ONCE Prescribed by: GRAHAM MARTINEZ on 08/06/19 1508 Carbamazepine 100 Mg Tab.chew, 300 MG PO HS, (Reported) Cephalexin 500 Mg Capsule, 500 MG PO TID Prescribed by: RIP GARCIA on 06/16/19 1241 Docusate Sodium 100 Mg Capsule, 100 MG PO BID, (Reported) Escitalopram Oxalate 5 Mg Tablet, 5 MG PO DAILY, (Reported) Ibuprofen 200 Mg Tablet, 200 MG PO Q6H PRN for PAIN-MILD, (Reported) Lorazepam 2 Mg/1 Ml Oral.conc, 1 MG PO Q6H PRN for AGITATION Prescribed by: DANIEL MANCINI on 02/16/19 0753 Metformin HCl 500 Mg Tablet, 250 MG PO DAILY, (Reported) TAKES 1/2 OF A 500MG TAB ONCE DAILY Nitrofurantoin Monohyd/M-Cryst 100 Mg Capsule, 1 TAB PO BID Prescribed by: GRAHAM MARTINEZ on 02/22/19 1645 Polyethylene Glycol 3350 17 Gm Powd.pack, 17 GM PO QID PRN for CONSTIPATION-1ST LINE Prescribed by: ROSA MONTOYA on 10/10/17 1916 Valproic Acid 250 Mg Capsule, 10 ML PO TID, (Reported) Patient Home Medication List Home Medication List Reviewed: Yes Review of Systems Review of Systems Constitutional: see HPI Eyes: No Symptoms Reported Ears, Nose, Mouth, Throat: no symptoms reported Respiratory: no symptoms reported Cardiovascular: no symptoms reported Genitourinary: no symptoms reported Musculoskeletal: no symptoms reported Skin: no symptoms reported Psychiatric/Neurological: No Symptoms Reported Endocrine: No Symptoms Reported Past Ekepsof-Vfgqcd-Kgpsnv Hx Patient Social History 2nd Hand Smoke Exposure: No Recent Foreign Travel: No Contact w/Someone Who Travel: No Recent Infectious Disease Expo: No Recent Hopitalizations: No Immunizations Up To Date Tetanus Booster (TDap): Unknown Seasonal Allergies Seasonal Allergies: No Past Medical History Surgeries: No Respiratory: No Cardiac: Yes Hypertension 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 1.0oz. 44.279192ed; 24.00 BMI Method:Estimated General Appearance: WD/WN, no apparent distress HEENT: PERRL/EOMI, normal ENT inspection, other (there is some swelling to the left side of the forehead, he is otherwise behaving normal, Im very well acquainted with Claudia) Respiratory: no respiratory distress, no accessory muscle use Extremities: normal range of motion, non-tender Psychiatric: alert Crainal Nerves: normal hearing, normal speech, PERRL Skin: normal color, warm/dry Procedures/Interventions Suture Size: 4-0 Progress/Results/Core Measures Results/Orders Vital Signs/I&O 09/07/19 13:35 B/P (MAP) Departure Impression Primary Impression: minor head injury Disposition: HOME, SELF-CARE Condition: Stable Departure-Patient Inst. Decision time for Depature: 13:52 Referrals: ALEJO RANDLE DO (PCP/Family) Primary Care Physician Patient Instructions: Head Injury Observation (DC) Add. Discharge Instructions: 1. If he begins acting abnormally, repetitive vomiting, then we would need to sedate him and CT scan him. At this point has not warranted. Go home and go about usual daily activities. All discharge instructions reviewed with patient and/or family. Voiced understanding. RIP GARCIA APRN Sep 07, 2019 13:53
[2019-09-07 14:02] VITALS: BP 0/0
== END 2019-09-07 14:02 | disposition home or self-care (01) ==
LOC: EDUNIT# 13:27 → ER 13:28
DX: S09.90XA Unspecified injury of head, initial encounter (principal); G40.909 Epilepsy, unspecified, not intractable, without status epilepticus; E11.9 Type 2 diabetes mellitus without complications; Z79.84 Long term (current) use of oral hypoglycemic drugs; W19.XXXA Unspecified fall, initial encounter
CPT/HCPCS: 99282

== ENCOUNTER → 2019-12-29 | Outpatient (CLI) | payer MEDICAID ==
[2019-12-29 09:13] LABS: BILIRUBIN,URINE NEGATIVE (NEGATIVE); CLARITY,URINE CLEAR; COLOR,URINE YELLOW; GLUCOSE, URINE (UA) NEGATIVE (NEGATIVE); KETONES,URINE NEGATIVE (NEGATIVE); LEUKOCYTE ESTERASE ,URINE NEGATIVE (NEGATIVE); NITRITE,URINE NEGATIVE (NEGATIVE); PROTEIN,URINE NEGATIVE (NEGATIVE)
[2019-12-29 09:27] LABS: BACTERIA,URINE TRACE /HPF
[2019-12-29 09:28] LABS: SQUAMOUS EPITHELIAL CELL,UR RARE /HPF
== END ==
LOC: LABNPT 09:07
PROVIDERS: ATTEND Family Medicine
DX: Z01.89 Encounter for other specified special examinations (principal)
CPT/HCPCS: 81000

== ENCOUNTER 2020-02-10 12:13 | Inpatient (IN) | payer MEDICAID ==
[~2020-02-10] VITALS: Ht 154 cm; Wt 45.0 kg
--- NOTE | 2020-02-10 12:13 | NUR ---
PT ARRIVED VIA EMS. PT AGITATED. ROCKING BACK AND FORTH, SCREAMING, ATTEMPTING TO HIT, SPIT ON, AND BITE STAFF. UNABLE TO ASSESS. MOM IN CAR ET SHE WAS CALLED TO COME INTO TO HELP SETTLE HIM.
--- NOTE | 2020-02-10 12:19 | NUR ---
MOM TALKING TO DR MONTOYA AT THIS TIME.
[2020-02-10] MEDS ORDERED: LACTATED RINGERS 1,000 ML IV ONE ×2 (12:28→14:48)
[2020-02-10] MEDS ORDERED: KETAMINE HCL 100 MG/ML 5 ML VIAL IM ONE (12:30)
--- NOTE | 2020-02-10 12:42 | ED General ---
General Chief Complaint: General Problems/Pain Stated Complaint: DECREASED APPETITE,LETHARGIC Nursing Triage Note: SEE NOTE. UNABLE TO GET VITALS Nursing Sepsis Screen: No Definite Risk Source of Information: Patient Exam Limitations: No Limitations History of Present Illness Date Seen by Provider: Feb 10, 2020 Time Seen by Provider: 12:09 Initial Comments Patient presents ER by private conveyance from [place] where he has complaint of lethargy and decreased appetite and poor oral fluid intake. Refusing to take his medicines for the past 3 days. His mother accompanies him separately and states that he has been losing weight in the past 6 months. He graduated high [employer] about 125 pounds and now she thinks these are 100 pounds. There is not any significant workup done since the global pandemic started and she has not been didn't see him. He doesn't history of chronic constipation. They took him off of his psych meds 1-1/2 months ago thinking that may be a contributing to his weight loss. They have not really made his behaviors any worse nor has stopping the psych meds helped his weight loss. Patient is nonverbal but does cry out loudly and spit and hit. No documented fevers. In the past few weeks she's also had increased amount of seizures. Mom is not certain if he's extricated medications appropriately since she's not been able to see him for the past several months. Allergies and Home Medications Allergies Coded Allergies: No Known Drug Allergies (Unverified , 01/13/19) Home Medications Baloxavir Marboxil 40 Mg Tablet, 40 MG PO ONCE Prescribed by: GRAHAM MARTINEZ on 08/06/19 1508 Carbamazepine 100 Mg Tab.chew, 300 MG PO HS, (Reported) Cephalexin 500 Mg Capsule, 500 MG PO TID Prescribed by: RIP GARCIA on 06/16/19 1241 Docusate Sodium 100 Mg Capsule, 100 MG PO BID, (Reported) Escitalopram Oxalate 5 Mg Tablet, 5 MG PO DAILY, (Reported) Ibuprofen 200 Mg Tablet, 200 MG PO Q6H PRN for PAIN-MILD, (Reported) Lorazepam 2 Mg/1 Ml Oral.conc, 1 MG PO Q6H PRN for AGITATION Prescribed by: DANIEL MANCINI on 02/16/19 0753 Metformin HCl 500 Mg Tablet, 250 MG PO DAILY, (Reported) TAKES 1/2 OF A 500MG TAB ONCE DAILY Nitrofurantoin Monohyd/M-Cryst 100 Mg Capsule, 1 TAB PO BID Prescribed by: GRAHAM MARTINEZ on 02/22/19 1645 Polyethylene Glycol 3350 17 Gm Powd.pack, 17 GM PO QID PRN for CONSTIPATION-1ST LINE Prescribed by: ROSA MONTOYA on 10/10/17 1916 Valproic Acid 250 Mg Capsule, 10 ML PO TID, (Reported) Patient Home Medication List Home Medication List Reviewed: Yes Review of Systems Review of Systems Constitutional: see HPI (the patient's unable to provide any meaningful review of systems.) Past Evkimfr-Hursye-Xfiguv Hx Patient Social History Alcohol Use: Denies Use Recreational Drug Use: No Smoking Status: Never a Smoker 2nd Hand Smoke Exposure: No Recent Foreign Travel: No Contact w/Someone Who Travel: No Recent Infectious Disease Expo: No Recent Hopitalizations: No Immunizations Up To Date Tetanus Booster (TDap): Unknown Seasonal Allergies Seasonal Allergies: No Past Medical History Surgeries: No Respiratory: No Cardiac: Yes Hypertension 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 1.0oz. [id number]; 24.00 BMI Method:Estimated General Appearance: Anxious, Cachetic Eyes: Bilateral Eye Normal Inspection, Bilateral Eye PERRL, Bilateral Eye EOMI HEENT: PERRL/EOMI, TMs Normal, Pharynx Normal; No Moist Mucous Membranes; Other (dried nasal secretions with bilateral congestion but no epistaxis) Neck: Full Range of Motion, Normal Inspection, Non Tender, Supple Respiratory: Lungs Clear, Normal Breath Sounds, No Accessory Muscle Use, Respiratory Distress (oxygen saturations 82% on room air) Cardiovascular: Regular Rate, Rhythm, Normal Peripheral Pulses Gastrointestinal: Normal Bowel Sounds, Non Tender, Soft Extremity: Normal Capillary Refill, Normal Range of Motion, Non Tender, No Pedal Edema Neurologic/Psychiatric: Alert, 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 Norm as Tested, Other (agitated, stereotactic rocking) Skin: Normal Color, Warm/Dry Focused Exam Sepsis Stage: Sepsis (white count over 12.5, tachycardia, tachypnea, hypoxia) Possible Source: Pulmonary Time of Focused Exam: 16:36 Respiratory: Lungs Clear, Normal Breath Sounds, No Accessory Muscle Use, No Respiratory Distress (oxygen sats 98% on room air) Cardiovascular: Regular Rate, Rhythm, No Edema, Normal Peripheral Pulses Capillary Refill: Less Than 3 Seconds Procedures/Interventions Suture Size: 4-0 Progress/Results/Core Measures Suspected Sepsis Recent Fever Within 48 Hours: No Infection Criteria Present: Suspected New Infection New/Unexplained Altered Menta: No Sepsis Screen: No Definite Risk SIRS Temperature: Pulse: Respiratory Rate: Laboratory Tests 02/10/20 12:45: White Blood Count 12.6H Blood Pressure / Mean: Laboratory Tests 02/10/20 12:45: Creatinine 0.96, Platelet Count 338, Total Bilirubin 0.4 Results/Orders Lab Results Laboratory Tests Test 02/10/20 12:45 02/10/20 12:54 02/10/20 12:55 02/10/20 13:35 Range/Units White Blood Count 12.6 H 4.3-11.0 10^3/uL Red Blood Count 4.02 L 4.35-5.85 10^6/uL Hemoglobin 13.5 13.3-17.7 G/DL Hematocrit 39 L 40-54 % Mean Corpuscular Volume 98 80-99 FL Mean Corpuscular Hemoglobin 34 25-34 PG Mean Corpuscular Hemoglobin Concent 34 32-36 G/DL Red Cell Distribution Width 12.2 10.0-14.5 % Platelet Count 338 130-400 10^3/uL Mean Platelet Volume 8.7 7.4-10.4 FL Neutrophils (%) (Auto) 55 42-75 % Lymphocytes (%) (Auto) 35 12-44 % Monocytes (%) (Auto) 9 0-12 % Eosinophils (%) (Auto) 1 0-10 % Basophils (%) (Auto) 0 0-10 % Neutrophils # (Auto) 7.0 1.8-7.8 X 10^3 Lymphocytes # (Auto) 4.4 H 1.0-4.0 X 10^3 Monocytes # (Auto) 1.1 H 0.0-1.0 X 10^3 Eosinophils # (Auto) 0.1 0.0-0.3 10^3/uL Basophils # (Auto) 0.0 0.0-0.1 10^3/uL Sodium Level 143 135-145 MMOL/L Potassium Level 3.7 3.6-5.0 MMOL/L Chloride Level 101 98-107 MMOL/L Carbon Dioxide Level 26 21-32 MMOL/L Anion Gap 16 H 5-14 MMOL/L Blood Urea Nitrogen 19 H 7-18 MG/DL Creatinine 0.96 0.60-1.30 MG/DL Estimat Glomerular Filtration Rate > 60 BUN/Creatinine Ratio 20 Glucose Level 115 H 70-105 MG/DL Calcium Level 9.4 8.5-10.1 MG/DL Corrected Calcium 9.2 8.5-10.1 MG/DL Total Bilirubin 0.4 0.1-1.0 MG/DL Aspartate Amino Transf (AST/SGOT) 35 H 5-34 U/L Alanine Aminotransferase (ALT/SGPT) 21 0-55 U/L Alkaline Phosphatase 120 40-136 U/L C-Reactive Protein High Sensitivity 3.16 H 0.00-0.50 MG/DL Total Protein 8.2 6.4-8.2 GM/DL Albumin 4.3 3.2-4.5 GM/DL Blood Gas Puncture Site LT RAD RT RAD Blood Gas Patient Temperature 98.4 98.4 Arterial Blood pH 7.34 *L 7.37 7.37-7.43 Arterial Blood Partial Pressure CO2 58 H 54 H 35-45 MMHG Arterial Blood Partial Pressure O2 186 H 275 H 79-93 MMHG Arterial Blood HCO3 31 H 31 H 23-27 MMOL/L Arterial Blood Total CO2 32.3 H 32.5 H 21.0-31.0 MMOL/L Arterial Blood Oxygen Saturation 100 100 94-100 % Arterial Blood Base Excess 5.0 H 5.7 H -2.5-2.5 MMOL/L Roel Test YES-POS YES-POS Blood Gas Ventilator Setting NO NO Blood Gas Inspired Oxygen 6 4 D-Dimer 0.76 H 0.00-0.49 UG/ML Procalcitonin 0.01 <0.10 NG/ML Test 7/26/20 16:44 Range/Units Urine Color YELLOW Urine Clarity CLEAR Urine pH 6.5 5-9 Urine Specific [place] <=1.005 1.016-1.022 Urine Protein NEGATIVE NEGATIVE Urine Glucose (UA) NEGATIVE NEGATIVE Urine Ketones TRACE H NEGATIVE Urine Nitrite NEGATIVE NEGATIVE Urine Bilirubin NEGATIVE NEGATIVE Urine Urobilinogen 1.0 < = 1.0 MG/DL Urine Leukocyte Esterase NEGATIVE NEGATIVE Urine RBC (Auto) TRACE-I NEGATIVE Urine RBC RARE /HPF Urine WBC NONE /HPF Urine Squamous Epithelial Cells 0-2 /HPF Urine Crystals NONE /LPF Urine Bacteria NEGATIVE /HPF Urine Casts NONE /LPF Urine Mucus NEGATIVE /LPF Urine Culture Indicated NO My Orders Orders - ROSA MONTOYA Ketamine Injection (Ketalar Injection) (02/10/20 12:30) Cbc With Automated Diff (02/10/20 12:28) Comprehensive Metabolic Panel (02/10/20 12:28) Hs C Reactive Protein (02/10/20 12:28) Ed Iv/Invasive Line Start (02/10/20 12:28) Lactated Ringers (Lr 1000 Ml Iv Solution (02/10/20 12:28) Chest 1 View, Ap/Pa Only (02/10/20 12:46) Ct Abdomen/Pelvis W (02/10/20 12:46) Straight Cath For Spec.-Adult (02/10/20 12:54) Ua Culture If Indicated (02/10/20 12:54) Arterial Blood Gas (02/10/20 13:01) Procalcitonin (Pct) (02/10/20 13:03) Fibrin Degradation Products (02/10/20 13:03) Iohexol Injection (Omnipaque 350 Mg/Ml 1 (02/10/20 13:15) Received Contrast (Hold Metformin- Contr (02/10/20 13:15) Ns (Ivpb) (Sodium Chloride 0.9% Ivpb Bag (02/10/20 13:15) Arterial Blood Gas (02/10/20 13:35) Arterial Blood Draw (02/10/20 13:35) Ct Angio Chest W (02/10/20 14:48) Ed Iv/Invasive Line Start (02/10/20 14:48) Lactated Ringers (Lr 1000 Ml Iv Solution (02/10/20 14:48) Iohexol Injection (Omnipaque 350 Mg/Ml 1 (02/10/20 15:15) Received Contrast (Hold Metformin- Contr (02/10/20 15:15) Ns (Ivpb) (Sodium Chloride 0.9% Ivpb Bag (02/10/20 15:15) Iohexol Injection (Omnipaque 350 Mg/Ml 1 (02/10/20 15:45) Received Contrast (Hold Metformin- Contr (02/10/20 15:45) Ns (Ivpb) (Sodium Chloride 0.9% Ivpb Bag (02/10/20 15:45) Ketorolac Injection (Toradol Injection) (02/10/20 16:45) Ziprasidone Injection (Geodon Injection) (02/10/20 16:45) Ceftriaxone For Im Use (Rocephin For Im (02/10/20 16:45) Azithromycin Tablet (Zithromax Tablet) (02/10/20 16:45) Lidocaine 1% Inj 20 Ml (Xylocaine 1% Inj (02/10/20 16:45) Ceftriaxone For Iv Use (Rocephin For I (02/10/20 17:15) Ziprasidone Injection (Geodon Injection) (02/10/20 17:15) Medications Given in ED Current Medications Medications Dose Ordered Sig/Celeste Route Start Time Stop Time Status Last Admin Dose Admin Iohexol 100 ml ONCE ONCE IV 02/10/20 13:15 02/10/20 13:16 DC 02/10/20 14:37 100 ML Iohexol 100 ml ONCE ONCE IV 02/10/20 15:15 02/10/20 15:16 DC 02/10/20 15:48 52 ML Ketamine HCl 100 mg ONCE ONCE IM 02/10/20 12:30 02/10/20 12:31 DC 02/10/20 12:38 100 MG Lactated Ringer's 1,000 ml @ 0 mls/hr Q0M ONCE IV 02/10/20 12:28 02/10/20 12:29 DC 02/10/20 12:45 1,000 MLS/HR Lactated Ringer's 1,000 ml @ 0 mls/hr Q0M ONCE IV 02/10/20 14:48 02/10/20 14:51 DC 02/10/20 14:58 1,000 MLS/HR Sodium Chloride 100 ml ONCE ONCE IV 02/10/20 13:15 02/10/20 13:16 DC 02/10/20 14:37 80 ML Sodium Chloride 100 ml ONCE ONCE IV 02/10/20 15:15 02/10/20 15:16 DC 02/10/20 15:48 80 ML Vital Signs/I&O 02/10/20 02/10/20 02/10/20 12:13 12:45 12:45 Temp 37.0 Pulse 79 Resp 16 B/P (MAP) 136/95 (109) Pulse Ox 84 84 O2 Delivery Nasal Cannula Room Air O2 Flow Rate 8.00 Capillary Refill : Less Than 3 Seconds Progress Note #1: Time: 13:00 Progress Note Patient was quite agitated so we gave him 100 mg IM ketamine which calmed him down so we can do a good exam. Before that he would refuse vital signs and scratch hit and spit at staff crying out loudly. He did seem to be holding his stomach and a splinting motion so it is presumed he may be having abdominal pain. After he was comfortable we were unable to obtain vitals. He is afebrile but had an oxygen sat of 82% which is not thought to be contributed to ketamine. His airway was adjusted and it did not help. He was mouth breathing so we put him on nasal cannula 6 L to the mouth which brought him up into the mid to high 90s. An ABG was obtained. Labs CT of the abdomen and pelvis with IV contrast and urine by straight catheter. Chest x-ray. Progress Note #2: Time: 14:40 Progress Note Small little infiltrate on the right lower lobe and elevated d-dimer. He has a marginal white count without left shift. He certainly retaining CO2 and I don't know if that's new for him but he doesn't have a history of pulmonary disease known. Would be reasonable to get a CT angiogram to rule out a pulmonary embolism. Give him another liter fluids as he still not producing urine. He did have a wet diaper when he arrived. We have put a bag over the urethral meatus try and capture urine. We discussed the case with mom and she is in agreement with the plan. Would be reasonable to try and observe him to get his obstipation under control. She is okay with restarting some psych medications while he is here. Progress Note #3: Time: 16:37 Progress Note We discussed the pulmonary nodule with mom and recommendations to follow that up with Dr. Randle outpatient in the next 3-6 months. We discussed the healing fractures of the spinous processes noted on CT. Nothing in the history to suggest why this would've happened. Mom says the only self- harm behaviors he doesn't sometimes he will hit his head on something but he's never even left a iram doing that. We have encouraged her to follow this up with kylah Gottlieb as well as if she would like to make a report to the police. Progress Note #4: Time: 17:27 Progress Note Discussed the case with the residential treatment specialist for kylah CheryLarissa and she says that the mother has already spoke to her and she has begun investigation and started making phone calls to get to the monitor. She knows he had a recent fall documented related to a seizure secondary to his history of epilepsy. We discussed the case and recommendations and encouraged increased attention to pain management with Tylenol and ibuprofen. Follow up with Dr. Randle was encouraged as well. Diagnostic Imaging Diagonstic Imaging: Xray Plain Films/CT/US/NM/MRI: chest Comments [facility], [place] NAME: LAURA DE LA CRUZ D[facility] REC#: [id number] PT STATUS: REG ER : 1995 PHYSICIAN: ROSA MONTOYA MD ADMIT DATE: 02/10/20/ER Draft Date of Exam:02/10/20 CHEST 1 VIEW, AP/PA ONLY INDICATION: Hypoxia, constipation, abdominal pain and dehydration. EXAMINATION: Chest from 02/10/2020 FINDINGS: The heart is enlarged. There is pulmonary vascular congestion with increased markings throughout both lungs consistent with edema. Patchy airspace opacities in the right lung base, likely infiltrate. No effusions. No pneumothorax. IMPRESSION: 1. Pulmonary edema 2. Right base infiltrate suspected. Dictated on workstation # [id number] Dict: 02/10/20 1344 Trans: 02/10/20 1353 [facility] [id number] Interpreted by: AIDEN WHITLEY MD Electronically signed by: Reviewed: Reviewed by Me Diagonstic Imaging: CT (with IV contrast) Plain Films/CT/US/NM/MRI: abdomen, pelvis Comments NAME: LAURA DE LA CRUZ [facility] REC#: [id number] PT STATUS: REG ER : 1995 PHYSICIAN: ROSA MONTOYA MD ADMIT DATE: 02/10/20/ER Draft Date of Exam:02/10/20 CT ABDOMEN/PELVIS W PROCEDURE: CT abdomen and pelvis with contrast. TECHNIQUE: Multiple contiguous axial images were obtained through the abdomen and pelvis after administration of intravenous contrast. Auto Exposure Controls were utilized during the CT exam to meet ALARA standards for radiation dose reduction. INDICATION: Abdominal pain. COMPARISON: August 06, 2019. FINDINGS: Visualized lung bases are clear. The liver, spleen, adrenal glands, pancreas, gallbladder, and kidneys are unremarkable. No aneurysmal dilatation of the abdominal aorta. The appendix is gas-filled and unremarkable. The urinary bladder is predominantly decompressed, but otherwise unremarkable. Extensive amount of stool throughout the colon. No evidence of small bowel obstruction. No significant adenopathy, free air, or free fluid within the abdomen or pelvis. Osseous structures are stable without acute osseous abnormality. IMPRESSION: Significant amount of stool throughout the colon felt related to constipation. Additional stable findings as above. Dictated on workstation # [id number] Dict: 02/10/20 1331 Trans: 02/10/20 1357 [facility] [id number] Interpreted by: FORREST ABDULLAHI MD Electronically signed by: Reviewed: Reviewed by Or Diagonstic Imaging: CT (angiogram) Plain Films/CT/US/NM/MRI: chest Comments NAME: LAURA DE LA CRUZ [facility] REC#: [id number] PT STATUS: REG ER : 1995 PHYSICIAN: ROSA MONTOYA MD ADMIT DATE: 02/10/20/ER Draft Date of Exam:02/10/20 CT ANGIO CHEST W PROCEDURE: CT angiography of the chest with contrast. TECHNIQUE: Multiple contiguous axial images were obtained through the chest after uneventful bolus administration of intravenous contrast. 3D reconstructed CTA MIP acquisitions were also performed. Auto Exposure Controls were utilized during the CT exam to meet ALARA standards for radiation dose reduction. INDICATION: Hypoxia, pulmonary embolism. COMPARISON: Radiographs from the same date. FINDINGS: No significant adenopathy within the chest. No aneurysmal dilatation of the thoracic aorta. The heart is within normal limits in size. No significant pericardial effusion. No pleural effusion. Elevation of the right hemidiaphragm. No pneumothorax. The left lung is clear. Mild tree-in-bud and reticular opacities are present within the right lung, including the right upper lobe and right middle lobe. Largest discrete nodule is noted within the right upper lobe measuring 5 mm. No significant filling defect within the central or segmental pulmonary arteries. Evaluation of subsegmental pulmonary arteries is limited. Partially visualized upper abdomen is grossly unremarkable. Healing/healed fractures involving the spinous processes within the upper and mid thoracic spine. More recent appearing fractures are noted involving the spinous processes of C7 and T1. No additional acute osseous abnormality. IMPRESSION: 1. Acute appearing fracturing involving the T7 and T1 spinous processes with healing/healed fractures involving the spinous processes within the mid thoracic spine. 2. No significant pulmonary embolus within the limits of the exam, though subsegmental pulmonary emboli are not optimally evaluated. 3. Mild tree-in-bud and reticular opacities within the right lung. This is nonspecific, though typically relates to underlying small airway or small vessel infectious or inflammatory process. 4. Elevation of the right hemidiaphragm. Dictated on workstation # [id number] Dict: 02/10/20 1604 Trans: 02/10/20 1620 [facility] [id number] Interpreted by: FORREST ABDULLAHI MD Electronically signed by: Reviewed: Reviewed by Me Departure Communication (Admissions) Time/Spoke to Admitting Phy: 16:40 Dr. Vaughn agrees to take the patient to the floor on Rocephin, azithromycin and Geodon. Impression Primary Impression: Pneumonia Qualified Codes: J18.1 - Lobar pneumonia, unspecified organism Additional Impressions: Obstipation Sepsis Qualified Codes: A41.9 - Sepsis, unspecified organism Fracture of spinous process of thoracic vertebra with routine healing Disposition: ADMITTED INPATIENT Condition: Stable Admissions Decision to Admit Reason: Admit from ER (General) Decision to Admit/Date: Feb 10, 2020 Time/Decision to Admit Time: 16:30 Departure-Patient Inst. Referrals: ALEJO RANDLE DO (PCP/Family) Primary Care Physician ROSA MONTOYA Feb 10, 2020 12:42
--- NOTE | 2020-02-10 12:43 | NUR ---
PT VERY DROWSY ET HELPED TO THE BED.
[2020-02-10 12:45] VITALS: BP 136/95
[2020-02-10 12:51] LABS: BASOPHILS % (AUTO) 0 % (0-10); EOSINOPHILS # (AUTO) 0.1 10^3/uL (0.0-0.3); EOSINOPHILS % (AUTO) 1 % (0-10); HEMATOCRIT 39 % (40-54); HEMOGLOBIN 13.5 G/DL (13.3-17.7); LYMPHOCYTES # (AUTO) 4.4 X 10^3 (1.0-4.0); LYMPHOCYTES % (AUTO) 35 % (12-44); MEAN CORPUSCULAR HEMOGLOBIN 34 PG (25-34); MEAN CORPUSCULAR HGB CONC 34 G/DL (32-36); MEAN CORPUSCULAR VOLUME 98 FL (80-99); MEAN PLATELET VOLUME 8.7 FL (7.4-10.4); MONOCYTES # (AUTO) 1.1 X 10^3 (0.0-1.0); MONOCYTES % (AUTO) 9 % (0-12); NEUTROPHILS % (AUTO) 55 % (42-75); PLATELET COUNT 338 10^3/uL (130-400); RED CELL DISTRIBUTION WIDTH 12.2 % (10.0-14.5); WHITE BLOOD COUNT 12.6 10^3/uL (4.3-11.0)
[2020-02-10 13:02] LABS: ALBUMIN 4.3 GM/DL (3.2-4.5); CHLORIDE 101 MMOL/L (98-107); POTASSIUM 3.7 MMOL/L (3.6-5.0); SODIUM 143 MMOL/L (135-145)
[2020-02-10 13:03] LABS: CALCIUM 9.4 MG/DL (8.5-10.1)
[2020-02-10 13:04] LABS: GLUCOSE 115 MG/DL (70-105); TOTAL PROTEIN 8.2 GM/DL (6.4-8.2)
[2020-02-10 13:05] LABS: CARBON DIOXIDE 26 MMOL/L (21-32)
[2020-02-10 13:06] LABS: BILIRUBIN,TOTAL 0.4 MG/DL (0.1-1.0)
[2020-02-10 13:07] LABS: ABG OXYGEN SATURATION 100 % (94-100); ABG PCO2 58 MMHG (35-45); ABG PO2 186 MMHG (79-93); ABG TCO2 32.3 MMOL/L (21.0-31.0)
[2020-02-10 13:07] LABS: ALKALINE PHOSPHATASE 120 U/L (40-136)
[2020-02-10 13:08] LABS: ABG PH 7.34 (7.37-7.43); ALLENS TEST YES-POS; INSPIRED O2 6; PATIENT TEMP 98.4; VENTILATOR NO
[2020-02-10 13:08] LABS: CREATININE SERUM 0.96 MG/DL (0.60-1.30); GFR ESTIMATED > 60
[2020-02-10 13:09] LABS: BUN/CREATININE RATIO 20
[2020-02-10 13:11] LABS: ALANINE AMINOTRANSFERASE 21 U/L (0-55)
--- OUTSIDE RECORDS SUMMARY | 2020-02-10 13:14 | XMS REPORT | Continuity of Care Document ---
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 02/16/2019 GELLENDER DO, [...] 02/16/2019 GELLENDER DO, ALEJO Wolf Ot Z79.4 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 (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 02/19/2019 GELLENDER DO, [...] 02/19/2019 GELLENDER DO, ALEJO A Ot Z79.4 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 (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 02/22/2019 GRAHAM MARTINEZ Ot E11.649 TYPE 2 DIABETES MELLITUS WITH HYPOGLYCEM 02/22/2019 GRAHAM MARTINEZ Ot E16.2 HYPOGLYCEMIA, UNSPECIFIED 02/22/2019 GRAHAM MARTINEZ Ot F89 UNSPECIFIED DISORDER OF PSYCHOLOGICAL DE 02/22/2019 GRAHAM MARTINEZ Ot G40.909 EPILEPSY, UNSP, NOT INTRACTABLE, WITHOUT 02/22/2019 BERNSONY GRAHAM Ot N39.0 URINARY TRACT INFECTION, SITE NOT SPECIF 02/22/2019 BERNOT GRAHAM Ot Z79.84 RETIREMENT (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 OF ORAL HYPOGLYC 02/22/2019 BERNSONY [...] NOT SPECIF 02/26/2019 BERNTANVIR CARDOZAIS Ot Z79.84 RETIREMENT (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 OF ORAL HYPOGLYC 02/26/2019 GRAHAM [...] AG 04/06/2019 CONG MILLARD MD Ot Z79.84 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 (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 OF ORAL HYPOGLYC 06/16/2019 RIP [...] ENCOUNTER 06/16/2019 RIP GARCIA APRN Ot Z79.84 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 (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 OF ORAL HYPOGLYC 06/28/2019 RIP [...] INI 06/28/2019 RIP GARCIA APRN Ot Z79.84 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 (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 OF ORAL HYPOGLYC 07/02/2019 RIP [...] INI 07/02/2019 RIP GARCIA APRN Ot Z79.84 RETIREMENT (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 OF ORAL HYPOGLYC 08/06/2019 BERNOT, GRAHAM Ot G40.909 EPILEPSY, UNSP, NOT INTRACTABLE, WITHOUT 08/06/2019 BERNOT, GRAHAM Ot I10 ESSENTIAL (PRIMARY) HYPERTENSION 08/06/2019 BERNOT, GRAHAM Ot J10.1 FLU DUE TO OTH IDENT INFLUENZA VIRUS W O 08/06/2019 BERNOT, GRAHAM Ot K59.00 CONSTIPATION, UNSPECIFIED 08/06/2019 BERNOT, GRAHAM Ot R05 COUGH 08/06/2019 BERNOT, GRAHAM Ot R74.8 ABNORMAL LEVELS OF OTHER SERUM ENZYMES 08/06/2019 BERNOT, GRAHAM Ot Z79.84 RETIREMENT (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 OF ORAL HYPOGLYC 08/06/2019 BERNOT, GRAHAM Ot Z86.59 PERSONAL HISTORY OF OTHER MENTAL AND BEH 08/09/2019 BERNOT, GARHAM Ot G40.909 EPILEPSY, UNSP, NOT INTRACTABLE, WITHOUT 08/09/2019 BERNOT, GRAHAM Ot I10 ESSENTIAL (PRIMARY) HYPERTENSION 08/09/2019 BERNOT, GRAHAM Ot J10.1 FLU DUE TO OTH IDENT INFLUENZA VIRUS W O 08/09/2019 BERNOT, GRAHAM Ot K59.00 CONSTIPATION, UNSPECIFIED 08/09/2019 BERNOT, GRAHAM Ot R05 COUGH 08/09/2019 BERNOT, GRAHAM Ot R74.8 ABNORMAL LEVELS OF OTHER SERUM ENZYMES 08/09/2019 BERNOT, GRAHAM Ot Z79.84 RETIREMENT (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 OF ORAL HYPOGLYC 08/09/2019 BERNOT, GRAHAM Ot Z86.59 PERSONAL HISTORY OF OTHER MENTAL AND BEH 08/22/2019 EDILMALENBRITTANI DOALEJO Ot S62.611A DISP FX OF PROXIMAL PHALANX OF LEFT INDE 08/22/2019 ALEJO RANDLE DO Ot X58.XXXA EXPOSURE TO OTHER SPECIFIED FACTORS, INI 09/07/2019 RIP GARCIA APRN Ot E11 .9 TYPE 2 DIABETES MELLITUS WITHOUT COMPLIC 09/07/2019 RIP GARCIA APRN Ot G40.909 EPILEPSY, UNSP, NOT INTRACTABLE, WITHOUT 09/07/2019 RIP GARCIA APRN Ot S09.90XA UNSPECIFIED INJURY OF HEAD, INITIAL ENCO 09/07/2019 RIP GARCIA APRN Ot W19.XXXA UNSPECIFIED FALL, INITIAL ENCOUNTER 09/07/2019 RIP GARCIA CASTINGS TRIMMER Ot Z79.84 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 (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 OF ORAL HYPOGLYC 01/02/2020 GELLENDER DO, ALEJO Wolf Ot Z01.89 ENCOUNTER FOR OTHER SPECIFIED SPECIAL EX 01/02/2020 GELLENDER DO, ALEJO Wolf Ot Z01.89 ENCOUNTER FOR OTHER SPECIFIED SPECIAL EX 01/03/2020 GELLENDER DO, ALEJO Wolf Ot Z01.89 ENCOUNTER FOR OTHER SPECIFIED SPECIAL EX Procedures There is no data. Results Test [...] plasma calcium measurement (mass/volume) 9.7 mg/dL 8.5-10.1 [id number] - 02/15/19 03:30 [id number] 58.4 ug/mL 50.0-100.0 Serum or plasma carbamazepine [...] by glucometer (mas s/volume) 157 mg/dL 70-110 Influenza virus A and B antigen detectio n - 08/06/19 11:55 CALL POSITIVES (F1 HELP) CALLED TO LINA AT 1219 NRG FLU RESULT POSITIVE FOR INFLUENZA B ANT IGEN, NEG FOR A ANTIGEN, BY IA NRG Complete blood count (CBC) with automate d white blood cell (WBC) differential - 08/06/19 12:11 Blood leukocytes automated count (number/volume) 6.3 10*3/uL 4.3-11.0 Blood erythrocytes automated count (number/volume) 3.68 10*6/uL 4.35-5.85 Venous blood hemoglobin measurement (mass/volume) 12.1 g/dL 13.3-17.7 Blood hematocrit (volume fraction) 36 % 40-54 Automated erythrocyte mean corpuscular volume 97 [ foz_us] 80-99 Automated erythrocyte mean corpuscular h emoglobin (mass per erythrocyte) 33 pg 25-34 Automated erythrocyte mean corpuscular h emoglobin concentration measurement (mass/volume) 34 g/dL 32-36 Automated erythrocyte distribution width ratio 13. 1 % 10.0- 14.5 Automated blood platelet count (count/volume) 191 10*3/uL 130-400 Automated blood platelet mean volume measurement 9.1 [foz_us] 7.4-10.4 Automated blood neutrophils/100 leukocytes 57 % 42-75 Automated blood lymphocytes/100 leukocytes 26 % 12-44 Blood monocytes/100 leukocytes 17 % 0-12 Automated blood eosinophils/100 leukocytes 0 % 0-10 Automated blood basophils/100 leukocytes 1 % 0-10 Blood neutrophils automated count (number/volume) 3.6 10*3 1.8-7.8 Blood lymphocytes automated count (number/volume) 1.7 10*3 1.0-4.0 Blood monocytes automated count (number/volume) 1. 0 10*3 0.0-1.0 Automated eosinophil count 0.0 10*3/uL 0 .0-0.3 Automated blood basophil count (count/volume) 0.0 10*3/uL 0.0-0.1 Comprehensive metabolic panel - 08/06/19 12:11 Serum or plasma sodium measurement (moles/volume) 135 mmol/L 135-145 Serum or plasma potassium measurement (moles/volume) 4.1 mmol/L 3.6-5.0 Serum or plasma chloride measurement (moles/volume) 102 mmol/L 98-107 Carbon dioxide 22 mmol/L 21-32 Serum or plasma anion gap determination (moles/volume) 11 mmol/L 5-14 Serum or plasma urea nitrogen measurement (mass/volume ) 14 mg/dL 7-18 Serum or plasma creatinine measurement (mass/volume) 0.77 mg/dL 0.60-1.30 Serum or plasma urea nitrogen/creatinine mass ratio 18 NRG Serum or plasma creatinine measurement w ith calculation of estimated glomerular filtration rate > NRG Serum or plasma glucose measurement (mass/volume) 137 mg/dL 70-105 Serum or plasma calcium measurement (mass/volume) 8.5 mg/dL 8.5-10.1 Serum or plasma total bilirubin measurement (mass/volu me) 0.2 mg/dL 0.1-1.0 Serum or plasma alkaline phosphatase willem surement (enzymatic activity/volume) 149 U/L 40-136 Serum or plasma aspartate aminotransfera se measurement (enzymatic activity/volume) 369 U/L 5-34 Serum or plasma alanine aminotransferase measurement (enzymatic activity/volume) 312 U/L 0-55 Serum or plasma protein measurement (mass/volume) 7.0 g/dL 6.4-8.2 Serum or plasma albumin measurement (mass/volume) 3.8 g/dL 3.2-4.5 CALCIUM CORRECTED 8.7 mg/dL 8.5-10.1 Serum or plasma amylase measurement (enz ymatic activity/volume) - 08/06/19 12:11 Serum or plasma amylase measurement (enzymatic activit y/volume) 94 U/L 25-125 Lipase - 08/06/19 12:11 Lipase 66 U/L 8-78 Complete urinalysis with reflex to cultu re - 08/06/19 14:02 Urine color determination YELLOW NRG Urine clarity determination CLEAR NR G Urine pH measurement by test strip 6.0 5-9 Specific gravity of urine by test strip >= 1.016-1.022 Urine protein assay by test strip, semi-quantitative TRACE NEGATIVE Urine glucose detection by automated test strip NE GATIVE NEGATIVE Erythrocytes detection in urine sediment by light micr oscopy NEGATIVE NEGATIVE Urine ketones detection by automated test strip NE GATIVE NEGATIVE Urine nitrite detection by test strip NEGATIVE NEGATIVE Urine total bilirubin detection by test strip NEGA TIVE NEGATIVE Urine urobilinogen measurement by automated test strip (mass/volume) 2.0 mg/dL < = 1.0 Urine leukocyte esterase detection by dipstick NEG ATIVE NEGATIVE Automated urine sediment erythrocyte cou nt by microscopy (number/high power field) NONE NRG Automated urine sediment leukocyte count by microscopy (number/high power field) NONE NRG Bacteria detection in urine sediment by light microsco py NEGATIVE NRG Squamous epithelial cells detection in u rine sediment by light microscopy RARE NRG Crystals detection in urine sediment by light microsco py NONE NRG Casts detection in urine sediment by light microscopy NONE NRG Mucus detection in urine sediment by light microscopy NEGATIVE NRG Complete urinalysis with reflex to culture NO NRG Complete urinalysis with reflex to cultu re - 12/29/19 08:30 Urine color determination YELLOW NRG Urine clarity determination CLEAR NR G Urine pH measurement by test strip 7.0 5-9 Specific gravity of urine by test [...] urobilinogen measurement by automated test strip (mass/volume) 0.2 mg/dL < = 1.0 Urine leukocyte esterase detection by dipstick NEG ATIVE NEGATIVE Automated urine sediment erythrocyte cou nt by microscopy (number/high power field) NONE NRG Automated urine sediment leukocyte count by microscopy (number/high power field) NONE NRG Bacteria detection in urine sediment by light microsco py TRACE NRG Squamous epithelial cells detection in u rine sediment by light microscopy RARE NRG Crystals detection in urine sediment by light microsco py NONE NRG Casts detection in urine sediment by light microscopy NONE NRG Mucus detection in urine sediment by light microscopy NEGATIVE NRG Complete urinalysis with reflex to culture NO NRG Encounters ACCT No. Visit Date/Time Discharge Status Pt. Type Provider Facility Loc./Unit Complaint [id number] 12/29/2019 09:07:00 23:59:59 CLS Outpatient ALEJO RANDLE DO [facility] LABNPT UA [id number] 09/07/2019 13:28:00 14:02:00 DIS Emergency RIP GARCIA APRN [facility] ER FALL;HEAD SWELLING [id number] 08/21/2019 13:17:00 23:59:59 CLS Outpatient ALEJO RANDLE DO [facility] RAD [id number] 08/06/2019 08:57:00 15:14:00 DIS Emergency GRAHAM MARTINEZ [facility] ER WEIGHT LOSS;COUGH;RUNNY NOSE [id number] 06/28/2019 18:23:00 19:50:00 DIS Emergency RIP GARCIA APRN [facility] ER R KNEE DISLOCATION [id number] 06/16/2019 11:19:00 13:50:00 DIS Emergency RIP GARCIA APRN [facility] ER FALL - CHIN LAC [id number] 04/04/2019 08:13:00 11:15:00 DIS Outpatient CONG MILLARD MD [facility] ER FALL [id number] 02/22/2019 15:11:00 16:55:00 DIS Emergency GRAHAM MARTINEZ [facility] ER MEDICATION ISSUES [id number] 02/13/2019 18:00:00 07:42:00 DIS Inpatient ALEJO RANDLE DO [facility] ICU DEVELOPMENT DISABILITY,AGGRESSIVE BEHAVIOR [id number] 01/13/2019 21:59:00 22:30:00 DIS Emergency EASTON HOWE [facility] ER FELL AND HIT FACE [id number] 10/08/2018 10:48:00 23:59:59 CLS Outpatient ALEJO RANDLE DO [facility] RAD RIGHT FOREARM A ND ELBOW SWELLING [id number] 10/06/2018 20:47:00 22:06:00 DIS Emergency RIP GARCIA APRN [facility] ER ARM SWELLING [id number] 08/17/2018 17:15:00 23:59:59 CLS Outpatient ALEJO RANDLE DO [facility] RAD L ELBOW SWELLIN G [id number] 08/04/2018 09:34:00 23:59:59 CLS Outpatient ALEJO RANDLE DO [facility] RAD LEFT ELBOW SWOL TAMMY [id number] 10/10/2017 16:52:00 018 19:20:00 DIS Emergency ROSA MONTOYA MD [facility] ER HAS NOT USED BATHROOM A LL DAY/ NO APPETITE [id number] 08/12/2017 16:20:00 018 18:33:00 [place] Emergency ROSA MONTOYA MD [facility] ER HEAD INJ/ODD BEHAVIOR
[2020-02-10] MEDS ORDERED: HOLD METFORMIN - RECEIVED CONTRAST 20 ML VIAL IV SCH ×2 (13:15→15:45)
[2020-02-10] MEDS ORDERED: IOHEXOL 350 MG/ML 100 ML (OMNIPAQUE 350) VIAL IV ONE ×3 (13:15→15:45)
[2020-02-10] MEDS ORDERED: NS 100 ML (IVPB) BAG IV ONE ×2 (13:15→15:15)
--- NOTE | 2020-02-10 13:26 | NUR ---
ATTEMPT FOR A STRAIT CATH ET NO URINE OBTAINED. UBAG PLACED.
[2020-02-10 13:42] LABS: ABG BASE EXCESS 5.7 MMOL/L (-2.5-2.5); ABG OXYGEN SATURATION 100 % (94-100); ABG PCO2 54 MMHG (35-45); ABG PH 7.37 (7.37-7.43); ABG PO2 275 MMHG (79-93); ABG TCO2 32.5 MMOL/L (21.0-31.0)
[2020-02-10 13:43] LABS: ALLENS TEST YES-POS; INSPIRED O2 4; PATIENT TEMP 98.4; VENTILATOR NO
--- NOTE | 2020-02-10 13:54 | Diagnostic Imaging Report ---
INDICATION: Hypoxia, constipation, abdominal pain and dehydration. EXAMINATION: Chest from 02/10/2020 FINDINGS: The heart is enlarged. There is pulmonary vascular congestion with increased markings throughout both lungs consistent with edema. Patchy airspace opacities in the right lung base, likely infiltrate. No effusions. No pneumothorax. IMPRESSION: 1. Pulmonary edema 2. Right base infiltrate suspected. Dictated by: Dictated on workstation # [id number]
--- NOTE | 2020-02-10 13:58 | Diagnostic Imaging Report ---
PROCEDURE: CT abdomen and pelvis with contrast. TECHNIQUE: Multiple contiguous axial images were obtained through the abdomen and pelvis after administration of intravenous contrast. Auto Exposure Controls were utilized during the CT exam to meet ALARA standards for radiation dose reduction. INDICATION: Abdominal pain. COMPARISON: August 06, 2019. FINDINGS: Visualized lung bases are clear. The liver, spleen, adrenal glands, pancreas, gallbladder, and kidneys are unremarkable. No aneurysmal dilatation of the abdominal aorta. The appendix is gas-filled and unremarkable. The urinary bladder is predominantly decompressed, but otherwise unremarkable. Extensive amount of stool throughout the colon. No evidence of small bowel obstruction. No significant adenopathy, free air, or free fluid within the abdomen or pelvis. Osseous structures are stable without acute osseous abnormality. IMPRESSION: Significant amount of stool throughout the colon felt related to constipation. Additional stable findings as above. Dictated by: Dictated on workstation # [id number]
--- NOTE | 2020-02-10 13:58 | NUR ---
OXYGEN TURNED OFF. PT HAS NOT VOIDED YET. PT DID HAVE A SATURATED DEPENDS ON WHEN HE ARRIVED. IVF ABOUT COMPLETE. NOTIFIED.
--- NOTE | 2020-02-10 14:18 | NUR ---
OXYGEN SAT IS 96% ON ROOM AIR.
--- NOTE | 2020-02-10 14:43 | NUR ---
IN TALKING WITH MOM. PT REMAINS IN BED WITH EYES OPEN. PT STILL HAS NOT VOIDED.
[2020-02-10] MEDS ORDERED: NS 50 ML (IVPB) BAG IV ONE (15:45)
[2020-02-10] MEDS: HOLD METFORMIN - RECEIVED CONTRAST 20 ML VIAL IV SCH (15:48)
--- NOTE | 2020-02-10 16:20 | Diagnostic Imaging Report ---
PROCEDURE: CT angiography of the chest with contrast. TECHNIQUE: Multiple contiguous axial images were obtained through the chest after uneventful bolus administration of intravenous contrast. 3D reconstructed CTA MIP acquisitions were also performed. Auto Exposure Controls were utilized during the CT exam to meet ALARA standards for radiation dose reduction. INDICATION: Hypoxia, pulmonary embolism. COMPARISON: Radiographs from the same date. FINDINGS: No significant adenopathy within the chest. No aneurysmal dilatation of the thoracic aorta. The heart is within normal limits in size. No significant pericardial effusion. No pleural effusion. Elevation of the right hemidiaphragm. No pneumothorax. The left lung is clear. Mild tree-in-bud and reticular opacities are present within the right lung, including the right upper lobe and right middle lobe. Largest discrete nodule is noted within the right upper lobe measuring 5 mm. No significant filling defect within the central or segmental pulmonary arteries. Evaluation of subsegmental pulmonary arteries is limited. Partially visualized upper abdomen is grossly unremarkable. Healing/healed fractures involving the spinous processes within the upper and mid thoracic spine. More recent appearing fractures are noted involving the spinous processes of C7 and T1. No additional acute osseous abnormality. IMPRESSION: 1. Acute appearing fracturing involving the T7 and T1 spinous processes with healing/healed fractures involving the spinous processes within the mid thoracic spine. 2. No significant pulmonary embolus within the limits of the exam, though subsegmental pulmonary emboli are not optimally evaluated. 3. Mild tree-in-bud and reticular opacities within the right lung. This is nonspecific, though typically relates to underlying small airway or small vessel infectious or inflammatory process. 4. Elevation of the right hemidiaphragm. Dictated by: Dictated on workstation # [id number]
--- NOTE | 2020-02-10 16:26 | NUR ---
IN TALKING WITH THE MOTHER AT THIS TIME. PT CONTINUES TO REST. NO URINE IN BAG AT THIS TIME.
[2020-02-10] MEDS ORDERED: cefTRIAXone 1,000 MG/2.86 ml vial (IM ONLY) IM ONE (16:45)
[2020-02-10] MEDS ORDERED: KETOROLAC 60 MG/2 ML VIAL IM ONE (16:45)
[2020-02-10] MEDS ORDERED: ZIPRASIDONE INJECTION 20 MG in WATER (STERILE) FOR INJECTION 1.2 ML IM PRN (16:45)
[2020-02-10] MEDS ORDERED: AZITHROMYCIN 250 MG TAB (ZITHROMAX) PO ONE (16:45)
[2020-02-10] MEDS ORDERED: LIDOCAINE 1% INJ 20 ML 20 ML VIAL INJ ONE (16:45)
--- NOTE | 2020-02-10 16:51 | NUR ---
MOTHER TALKING WITH DR MONTOYA. PT HAS PULLED HIS IV OUT.
[2020-02-10 17:06] LABS: BILIRUBIN,URINE NEGATIVE (NEGATIVE); CLARITY,URINE CLEAR; COLOR,URINE YELLOW; GLUCOSE, URINE (UA) NEGATIVE (NEGATIVE); KETONES,URINE TRACE (NEGATIVE); LEUKOCYTE ESTERASE ,URINE NEGATIVE (NEGATIVE); NITRITE,URINE NEGATIVE (NEGATIVE); PH,URINE 6.5 (5-9); PROTEIN,URINE NEGATIVE (NEGATIVE)
--- OUTSIDE RECORDS SUMMARY | 2020-02-10 17:13 | XMS REPORT | Continuity of Care Document ---
Author Organization Unknown Address Unknown Phone Unavailable Allergies Active Description Code Type Severity Reaction Onset Reported/Identified Relationship to Patient Clinical Status Yes No Known Drug Allergies [id number] Drug Allergy Unknown N/A 01/13/2019 Medications There [...] 02/14/2019 GELLENDER DO, ALEJO Wolf Ot Z79.4 CUSTODIAL (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 02/15/2019 GELLENDER DO, [...] 02/15/2019 GELLENDER DO, ALEJO Wolf Ot Z79.4 CUSTODIAL (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 02/16/2019 GELLENDER DO, [...] 02/16/2019 GELLENDER DO, ALEJO A Ot Z79.4 DRUM STENCILER (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 02/16/2019 GELLENDER DO, ALEJO Wolf Ot E11.9 TYPE 2 DIABETES MELLITUS WITHOUT COMPLIC 02/16/2019 GELLENDER DO, ALEJO Wolf Ot F79 UNSPECIFIED INTELLECTUAL DISABILITIES 02/16/2019 GELLENDER DO, ALEJO Wolf Ot F91.8 OTHER CONDUCT DISORDERS 02/16/2019 GELLENDER DO, ALEJO Wolf Ot F91.9 CONDUCT DISORDER, UNSPECIFIED 02/16/2019 GELLENDER DO, ALEJO A Ot G40.909 EPILEPSY, UNSP, NOT INTRACTABLE, WITHOUT 02/16/2019 GELLENDER DO, ALEJO Lucaino Ot I10 ESSENTIAL (PRIMARY) HYPERTENSION 02/16/2019 GELLENDER DO, ALEJO Wolf Ot 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, UNSPEC 02/16/2019 GELLENDER DO, ALEJO A Ot 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 02/16/2019 GELLENDER DO, ALEJO Wolf Ot Z79.4 DRUM STENCILER (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 02/19/2019 GELLENDER DO, [...] 02/19/2019 GELLENDER DO, ALEJO A Ot Z79.4 DRUM STENCILER (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 02/22/2019 GRAHAM MARTINEZ Ot E11.649 TYPE 2 DIABETES MELLITUS WITH HYPOGLYCEM 02/22/2019 GRAHAM MARTINEZ Ot E16.2 HYPOGLYCEMIA, UNSPECIFIED 02/22/2019 GRAHAM MARTINEZ Ot 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 UNSPECIFIED DISORDER OF PSYCHOLOGICAL DE 02/22/2019 GRAHAM MARTINEZ Ot G40.909 EPILEPSY, UNSP, NOT INTRACTABLE, WITHOUT 02/22/2019 BERNSONY GRAHAM Ot N39.0 URINARY TRACT INFECTION, SITE NOT SPECIF 02/22/2019 BERNOT GRAHAM Ot Z79.84 CUSTODIAL (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 OF ORAL HYPOGLYC 02/22/2019 BERNSONY [...] NOT SPECIF 02/26/2019 BERNTANVIR CARDOZAIS Ot Z79.84 CUSTODIAL (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 OF ORAL HYPOGLYC 02/26/2019 GRAHAM [...] AG 04/06/2019 CONG MILLARD MD Ot Z79.84 DRUM STENCILER (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 OF ORAL HYPOGLYC 06/16/2019 RIP [...] ENCOUNTER 06/16/2019 RIP GARCIA APRN Ot Z79.84 DRUM STENCILER (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 OF ORAL HYPOGLYC 06/28/2019 RIP [...] INI 06/28/2019 RIP GARCIA APRN Ot Z79.84 DRUM STENCILER (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 OF ORAL HYPOGLYC 07/02/2019 RIP [...] INI 07/02/2019 RIP GARCIA APRN Ot Z79.84 CUSTODIAL (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 OF ORAL HYPOGLYC 08/06/2019 BERNOT, [...] SERUM ENZYMES 08/06/2019 BERNOT, GRAHAM Ot Z79.84 CUSTODIAL (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 OF ORAL HYPOGLYC 08/06/2019 BERNOT, GRAHMA Ot Z86.59 PERSONAL HISTORY OF OTHER MENTAL AND BEH 08/09/2019 BERNOT, GRAHAM Ot G40.909 EPILEPSY, UNSP, NOT INTRACTABLE, WITHOUT 08/09/2019 BERNOT, GRAHAM Ot I10 ESSENTIAL (PRIMARY) HYPERTENSION 08/09/2019 BERNOT, GRAHAM Ot J10.1 FLU DUE TO OTH IDENT INFLUENZA VIRUS W O 08/09/2019 BERNOT, GRAHAM Ot K59.00 CONSTIPATION, UNSPECIFIED 08/09/2019 BERNOT, GRAHAM Ot R05 COUGH 08/09/2019 BERNOT, GRAHAM Ot R74.8 ABNORMAL LEVELS OF OTHER SERUM ENZYMES 08/09/2019 BERNOT, GRAHAM Ot Z79.84 CUSTODIAL (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 OF ORAL HYPOGLYC 08/09/2019 BERNOT, [...] UNSPECIFIED FALL, INITIAL ENCOUNTER 09/07/2019 RIP GARCIA STRAIGHT EDGER Ot Z79.84 DRUM STENCILER (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 OF ORAL HYPOGLYC 01/02/2020 GELLENDER [...] plasma calcium measurement (mass/volume) 9.7 mg/dL 8.5-10.1 [id number] - 02/15/19 03:30 [id number] 58.4 ug/mL 50.0-100.0 Serum or plasma carbamazepine [...] d white blood cell (WBC) differential - 02/10/20 12:45 Blood leukocytes automated count (number/volume) 12.6 10*3/uL 4.3-11.0 Blood erythrocytes automated count (number/volume) 4.02 10*6/uL 4.35-5.85 Venous blood hemoglobin measurement (mass/volume) 13.5 g/dL 13.3-17.7 Blood hematocrit (volume fraction) 39 % 40-54 Automated erythrocyte mean corpuscular volume 98 [ foz_us] 80-99 Automated erythrocyte mean corpuscular h emoglobin (mass per erythrocyte) 34 pg 25-34 Automated erythrocyte mean corpuscular h emoglobin concentration measurement (mass/volume) 34 g/dL 32-36 Automated erythrocyte distribution width ratio 12. 2 % 10.0- 14.5 Automated blood platelet count (count/volume) 338 10*3/uL 130-400 Automated blood platelet mean volume measurement 8.7 [foz_us] 7.4-10.4 Automated blood neutrophils/100 leukocytes 55 % 42-75 Automated blood lymphocytes/100 leukocytes 35 % 12-44 Blood monocytes/100 leukocytes 9 % 0-12 Automated blood eosinophils/100 leukocytes 1 % 0-10 Automated blood basophils/100 leukocytes 0 % 0-10 Blood neutrophils automated count (number/volume) 7.0 10*3 1.8-7.8 Blood lymphocytes automated count (number/volume) 4.4 10*3 1.0-4.0 Blood monocytes automated count (number/volume) 1. 1 10*3 0.0-1.0 Automated eosinophil count 0.1 10*3/uL 0 .0-0.3 Automated blood basophil count (count/volume) 0.0 10*3/uL 0.0-0.1 Comprehensive metabolic panel - 02/10/20 12:45 Serum or plasma sodium measurement (moles/volume) 143 mmol/L 135-145 Serum or plasma potassium measurement (moles/volume) 3.7 mmol/L 3.6-5.0 Serum or plasma chloride measurement (moles/volume) 101 mmol/L 98-107 Carbon dioxide 26 mmol/L 21-32 Serum or plasma anion gap determination (moles/volume) 16 mmol/L 5-14 Serum or plasma urea nitrogen measurement (mass/volume ) 19 mg/dL 7-18 Serum or plasma creatinine measurement (mass/volume) 0.96 mg/dL 0.60-1.30 Serum or plasma urea nitrogen/creatinine mass ratio 20 NRG Serum or plasma creatinine measurement w ith calculation of estimated glomerular filtration rate > NRG Serum or plasma glucose measurement (mass/volume) 115 mg/dL 70-105 Serum or plasma calcium measurement (mass/volume) 9.4 mg/dL 8.5-10.1 Serum or plasma total bilirubin measurement (mass/volu me) 0.4 mg/dL 0.1-1.0 Serum or plasma alkaline phosphatase willem surement (enzymatic activity/volume) 120 U/L 40-136 Serum or plasma aspartate aminotransfera se measurement (enzymatic activity/volume) 35 U/L 5-34 Serum or plasma alanine aminotransferase measurement (enzymatic activity/volume) 21 U/L 0-55 Serum or plasma protein measurement (mass/volume) 8.2 g/dL 6.4-8.2 Serum or plasma albumin measurement (mass/volume) 4.3 g/dL 3.2-4.5 CALCIUM CORRECTED 9.2 mg/dL 8.5-10.1 Serum or plasma C reactive protein measu rement (mass/volume) - 02/10/20 12:45 Serum or plasma C reactive protein measurement (mass/v olume) 3.16 mg/dL 0.00-0.50 Arterial blood gas measurement - 0 12:54 Blood pCO2 58 mm[Hg] 35-45 Blood pO2 186 mm[Hg] 79-93 Arterial blood bicarbonate measurement (moles/volume) 31 mmol/L 23-27 Arterial blood base excess by calculation 5.0 mmol /L -2.5-2.5 Arterial blood oxygen saturation measurement 100 % 94-100 * Inhaled oxygen flow rate 6 NRG Arterial blood pH measurement with patient temperature correction 7.34 7.37-7.43 Arterial blood carbon dioxide, total measurement (mole s/volume) 32.3 mmol/L 21.0-31.0 Body site LT RAD NRG Assessment of wrist artery patency prior to arterial p uncture YES-POS NRG Setting of ventilation mode NO NR G Measurement of body temperature 98.4 NRG Fibrin D-dimer FEU measurement in platel et poor plasma (mass/volume) - 02/10/20 12:55 Fibrin D-dimer FEU measurement in platelet poor plasma (mass/volume) 0.76 ug/mL 0.00-0.49 PROCALCITONIN (PCT) - 02/10/20 12:55 PROCALCITONIN (PCT) 0.01 ng/mL <0.10 Arterial blood gas measurement - 0 13:35 Blood pCO2 54 mm[Hg] 35-45 Blood pO2 275 mm[Hg] 79-93 Arterial blood bicarbonate measurement (moles/volume) 31 mmol/L 23-27 Arterial blood base excess by calculation 5.7 mmol /L -2.5-2.5 Arterial blood oxygen saturation measurement 100 % 94-100 * Inhaled oxygen flow rate 4 NRG Arterial blood pH measurement with patient temperature correction 7.37 7.37-7.43 Arterial blood carbon dioxide, total measurement (mole s/volume) 32.5 mmol/L 21.0-31.0 Body site RT RAD NRG Assessment of wrist artery patency prior to arterial p uncture YES-POS NRG Setting of ventilation mode NO NR G Measurement of body temperature 98.4 NRG Encounters ACCT No. Visit Date/Time Discharge Status Pt. Type Provider Facility Loc./Unit Complaint [id number] 12/29/2019 09:07:00 23:59:59 CLS Outpatient ALEJO RANDLE DO [facility] LABNPT UA [id number] 09/07/2019 13:28:00 14:02:00 DIS Emergency RIP GARCIA APRN [facility] ER FALL;HEAD SWELLING [id number] 08/21/2019 13:17:00 23:59:59 CLS Outpatient ALEJO RANDLE DO [facility] RAD [id number] 08/06/2019 08:57:00 15:14:00 DIS Emergency GRAHAM MARTINEZ [facility] ER WEIGHT LOSS;COUGH;RUNNY NOSE [id number] 06/28/2019 18:23:00 19:50:00 DIS Emergency RIP GARCIA APRN [facility] ER R KNEE DISLOCATION [id number] 06/16/2019 11:19:00 13:50:00 DIS Emergency RIP GARCIA APRN [facility] ER FALL - CHIN LAC [id number] 04/04/2019 08:13:00 11:15:00 DIS Outpatient CONG MILLARD MD [facility] ER FALL [id number] 02/22/2019 15:11:00 16:55:00 DIS Emergency GRAHAM MARTINEZ [facility] ER MEDICATION ISSUES [id number] 02/13/2019 18:00:00 07:42:00 DIS Inpatient ALEJO RANDLE DO [facility] ICU DEVELOPMENT DISABILITY,AGGRESSIVE BEHAVIOR [id number] 01/13/2019 21:59:00 22:30:00 DIS Emergency EASTON HOWE [facility] ER FELL AND HIT FACE [id number] 10/08/2018 10:48:00 23:59:59 CLS Outpatient ALEJO RANDLE DO [facility] RAD RIGHT FOREARM A ND ELBOW SWELLING [id number] 10/06/2018 20:47:00 22:06:00 DIS Emergency RIP GARCIA APRN [facility] ER ARM SWELLING [id number] 08/17/2018 17:15:00 23:59:59 CLS Outpatient ALEJO RANDLE DO [facility] RAD L ELBOW SWELLIN G [id number] 08/04/2018 09:34:00 23:59:59 CLS Outpatient ALEJO RANDLE DO [facility] RAD LEFT ELBOW SWOL TAMMY [id number] 10/10/2017 16:52:00 19:20:00 DIS Emergency ROSA MONTOYA MD [facility] ER HAS NOT USED BATHROOM A LL DAY/ NO APPETITE [id number] 08/12/2017 16:20:00 018 18:33:00 DIS Emergency ROSA MONTOYA MD [facility] ER HEAD INJ/ODD BEHAVIOR [id number] 02/10/2020 12:52:00 Document Registration
[2020-02-10 17:14] LABS: BACTERIA,URINE NEGATIVE /HPF; RBC,URINE RARE /HPF; SQUAMOUS EPITHELIAL CELL,UR 0-2 /HPF
[2020-02-10] MEDS ORDERED: ZIPRASIDONE INJECTION 20 MG in WATER (STERILE) FOR INJECTION 1.2 ML IM STA (17:15)
[2020-02-10] MEDS ORDERED: cefTRIAXone FOR IV USE 1,000 MG in WATER (STERILE) FOR INJECTION 10 ML IV ONE (17:15)
[2020-02-10] MEDS ORDERED: ZIPRASIDONE 20 MG INJ (GEODON) VIAL IM ONE (17:21)
[2020-02-10] MEDS ORDERED: ZIPRASIDONE INJECTION 20 MG in WATER (STERILE) FOR INJECTION 1.2 ML IM ONE (17:22)
[2020-02-10] MEDS ORDERED: WATER (STERILE) FOR INJECTION 10 ML ONE (17:24)
--- NOTE | 2020-02-10 17:30 | NUR ---
DR PRATER OR RIP GARCIA ORDER FOR GEODON WILL NOT CROSS OVER TO [facility] CELL OR EMAR. GEODON 20MG IM RIGHT THIGH GIVEN.
--- NOTE | 2020-02-10 17:39 | NUR ---
DRISS RN ADMITTING NURSE NOTIFIED OF PROBLEM OF GEODON ORDER NOT CROSSING OVER AND THAT IT HAD BEEN GIVEN.
--- NOTE | 2020-02-10 17:40 | NUR ---
LAURA DE LA CRUZ admitted to room 403-1, with an admitting diagnosis of PNEUMONIA, on 02/10/20 from ED via [facility], accompanied by STAFF AND MOM .LAURA DE LA CRUZ introduced to surroundings, call light, bed controls, phone, TV, temperature control, lights, meal times, smoking policy, visitor policy, side rail policy, bathrooms and showers. Patient Rights given to patient in the handbook. LAURA DE LA CRUZ verbalizes understanding that [facility] is not responsible for the loss or damage to any personal effects or valuables that are kept in the patients posession during their hospitalization.
[2020-02-10] MEDS ORDERED: ONDANSETRON 4 MG/2 ML (SDV) Z0FRAN IVP PRN (18:30)
[2020-02-10] MEDS ORDERED: NON-FORMULARY MEDICATION 1 EA EA PR SCH (18:30)
[2020-02-10] MEDS ORDERED: ACETAMINOPHEN 500 MG TAB (TYLENOL) PO PRN (18:30)
[2020-02-10] MEDS ORDERED: ENOXAPARIN 40 MG/0.4 ML (LOVENOX) SYR SC SCH (18:30)
[2020-02-10] MEDS ORDERED: KETOROLAC 15 MG/ML VIAL IVP PRN (18:30)
[2020-02-10] MEDS ORDERED: HYDROcodone/APAP 5 MG/325 MG (LORTAB) TAB PO PRN (18:30)
[2020-02-10] MEDS ORDERED: CARB100T6 PO (18:42)
[2020-02-10] MEDS ORDERED: cefTRIAXone FOR IV USE 1,000 MG in WATER (STERILE) FOR INJECTION 10 ML IV SCH (19:15)
[2020-02-10] MEDS: NS IV 1000 ML 1,000 ML IV SCH (20:00)
[2020-02-10] MEDS: DOCUSATE SODIUM 100 MG (COLACE) CAP PO SCH (21:00)
[2020-02-10] MEDS: polyethylene glycoL POWDER 17 GM (MIRALAX) PACK PO SCH (21:00)
[2020-02-10 23:59] VITALS: BP 86/64
[2020-02-11] MEDS: NS IV 1000 ML 1,000 ML IV SCH ×3 (01:10→16:07)
[2020-02-11 01:29] VITALS: BP 136/95
--- NOTE | 2020-02-11 03:32 | NUR ---
MAT PROTOCOL SCORE OF 3. ALBUTEROL 2.5MG Q4 PRN SVN ACAPELLA BID PRN. TKS GREATER THAN 90% REASSES IN 72H OR SOONER IF NEEDED. Addendum: 02/11/20 at 0333 by BENTLEY ROBLERO RT Amended: Links added.
[2020-02-11] MEDS ORDERED: RT-ALBUTEROL SULF 2.5 MG/3 ML PRE-MIX VIAL INH PRN (03:45)
[2020-02-11] MEDS: HOLD METFORMIN - RECEIVED CONTRAST 20 ML VIAL IV SCH (04:32)
--- NOTE | 2020-02-11 05:52 | NUR ---
pt uncooperative with scds and will not leave iv tubing alone cont to pull on it.. was able to given iv kevyn. sitter at bedside hits spits and attempts to bite staff. made aware
[2020-02-11 05:53] LABS: BASOPHILS % (AUTO) 0 % (0-10); EOSINOPHILS # (AUTO) 0.1 10^3/uL (0.0-0.3); EOSINOPHILS % (AUTO) 1 % (0-10); HEMATOCRIT 34 % (40-54); HEMOGLOBIN 11.7 G/DL (13.3-17.7); LYMPHOCYTES # (AUTO) 2.6 X 10^3 (1.0-4.0); LYMPHOCYTES % (AUTO) 24 % (12-44); MEAN CORPUSCULAR HEMOGLOBIN 34 PG (25-34); MEAN CORPUSCULAR HGB CONC 34 G/DL (32-36); MEAN CORPUSCULAR VOLUME 98 FL (80-99); MEAN PLATELET VOLUME 8.8 FL (7.4-10.4); MONOCYTES % (AUTO) 10 % (0-12); NEUTROPHILS # (AUTO) 7.1 X 10^3 (1.8-7.8); NEUTROPHILS % (AUTO) 66 % (42-75); PLATELET COUNT 288 10^3/uL (130-400); RED CELL DISTRIBUTION WIDTH 12.4 % (10.0-14.5); WHITE BLOOD COUNT 10.8 10^3/uL (4.3-11.0)
[2020-02-11 06:12] LABS: ALBUMIN 3.6 GM/DL (3.2-4.5); CHLORIDE 104 MMOL/L (98-107); SODIUM 142 MMOL/L (135-145)
[2020-02-11 06:13] LABS: CALCIUM 8.7 MG/DL (8.5-10.1)
[2020-02-11 06:14] LABS: GLUCOSE 104 MG/DL (70-105); TOTAL PROTEIN 6.8 GM/DL (6.4-8.2)
[2020-02-11 06:15] LABS: CARBON DIOXIDE 26 MMOL/L (21-32)
[2020-02-11 06:16] LABS: BILIRUBIN,TOTAL 0.3 MG/DL (0.1-1.0)
[2020-02-11 06:17] LABS: EOSINOPHILS % (MANUAL) 1 %; LYMPHOCYTES % (MANUAL) 18 %; MONOCYTES % (MANUAL) 4 %; NEUTROPHILS % (MANUAL) 77 %; RBC MORPH NORMAL
[2020-02-11 06:18] LABS: ALKALINE PHOSPHATASE 113 U/L (40-136); GFR ESTIMATED > 60
[2020-02-11 06:19] LABS: BUN/CREATININE RATIO 27
[2020-02-11 06:21] LABS: ALANINE AMINOTRANSFERASE 20 U/L (0-55)
[2020-02-11] MEDS: polyethylene glycoL POWDER 17 GM (MIRALAX) PACK PO SCH (08:23)
[2020-02-11] MEDS: DOCUSATE SODIUM 100 MG (COLACE) CAP PO SCH ×2 (08:23→23:53)
[2020-02-11] MEDS: ZIPRASIDONE 20 MG (GEODON) CAP PO SCH (08:23)
[2020-02-11] MEDS: AZITHROMYCIN INJECTION 500 MG in NS (IVPB) 250 ML IV SCH (08:24)
--- NOTE | 2020-02-11 08:41 | Diagnostic Imaging Report ---
INDICATION: Pneumonia. Time of exam: 4:13 AM Correlation is made with prior chest one day earlier. The heart size is stable. Previously noted pulmonary infiltrates have improved. There has been significantly improved aeration to both lungs. No effusion or pneumothorax is identified. Thoracic deformity is noted. IMPRESSION: Overall improved aeration of both lungs when compared with prior examination from one day earlier. Dictated by: Dictated on workstation # [id number]
--- NOTE | 2020-02-11 09:16 | History & Physical-Hospitalist ---
History of Present Illness HPI/Chief Complaint Pt is 24yoAAM with a PMH of intellectual delay who presented to the ER due to lethargy and refusal to take his medications. He is nonverbal so history is very limited. He spat at me multiple times. He resides at [facility] and his cash management associate is at bedside but states he was unaware of his admission to the hospital until 730 this morning. All history is obtained from the chart. For 3 days he has had worsening appetite, refused to take his med, lethargy. He has also been losing weight over the past 6 months. He was taken off of his psych medications roughly 6 weeks ago to see if it would help with his weight loss. Per note it has not helped with his appetite but has also not made his behaviors worse. He was found to have a right lower lobe infiltrate and was admitted for sepsis. Source: patient Date Seen 02/11/20 Time Seen by a Provider: 09:11 Attending Physician Mario Wallis MD PCP Tobi Londono DO Referring Physician Date of Admission Feb 10, 2020 at 16:40 Home Medications & Allergies Home Medications Reviewed patient Home Medication Reconciliation performed by pharmacy medication reconciliations ophthalmic technician apprentice and/or nursing. Patients Allergies have been reviewed. Allergies Allergies Coded Allergies No Known Drug Allergies (Unverified01/13/19) Past Jgzsjzf-Vctydb-Zlqghr Hx Past Med/Social Hx: Reviewed Nursing Past Med/Soc Hx Patient Social History Marrital Status: single Employed/Student: unemployed Alcohol Use: Denies Use Recreational Drug Use: No Smoking Status: Never a Smoker 2nd Hand Smoke Exposure: No Recent Foreign Travel: No Contact w/other who traveled: No Recent Hopitalizations: No Recent Infectious Disease Expo: No Immunizations Up To Date Tetanus Booster (TDap): Unknown Seasonal Allergies Seasonal Allergies: No Past Medical History Cardiac: Hypertension Neurological: Developmental Disorder, Seizure Disorder Endocrine: Diabetes, Insulin dep Psychosocial: Violent Behavior History of Blood Disorders: No Family History Reviewed Nursing Family Hx No Pertinent Family Hx Review of Systems ROS-Unable to Obtain: nonverbal Constitutional: see HPI Physical Exam Physical Exam Vital Signs Vital Signs - First Documented 02/10/20 02/11/20 12:45 01:29 Temp 37.0 Pulse 79 Resp 16 B/P (MAP) 136/95 (109) Pulse Ox 84 O2 Delivery Nasal Cannula O2 Flow Rate 8.00 FiO2 21 Capillary Refill : Less Than 3 SecondsLess Than 3 Seconds Height, Weight, BMI Height: 5'1.00" Weight: 98lbs. 1.0oz. 44.261293ed; 18.97 BMI Method:Estimated General Appearance: No Apparent Distress, Thin HEENT: PERRL/EOMI, Moist Mucous Membranes Neck: Normal Inspection, Supple Respiratory: Lungs Clear, No Accessory Muscle Use, No Respiratory Distress Cardiovascular: Regular Rate, Rhythm, No Murmur Gastrointestinal: Normal Bowel Sounds, Non Tender, Soft Neurologic/Psychiatric: Alert, Other (nonverbal, spit at me when I spoke to him) Skin: Normal Color, Warm/Dry Results Results/Procedures Labs Laboratory Tests 02/10/20 12:45 02/11/20 05:40 Patient resulted labs reviewed. Imaging: Reviewed Imaging Report Imaging [facility] [place] [id number] PT STATUS: ADM IN : 1995 PHYSICIAN: ROSA MONTOYA MD ADMIT DATE: 02/10/20/[facility] Signed Date of Exam:02/10/20 CHEST 1 VIEW, AP/PA ONLY INDICATION: Hypoxia, constipation, abdominal pain and dehydration. EXAMINATION: Chest from 02/10/2020 FINDINGS: The heart is enlarged. There is pulmonary vascular congestion with increased markings throughout both lungs consistent with edema. Patchy airspace opacities in the right lung base, likely infiltrate. No effusions. No pneumothorax. IMPRESSION: 1. Pulmonary edema 2. Right base infiltrate suspected. Dictated by: Dictated on workstation # [id number] Dict: 02/10/20 1344 Trans: 02/10/201744 [facility] [id number] Interpreted by: AIDEN WHITLEY MD Electronically signed by: AIDEN WHITLEY MD 02/10/20 1745 [facility] [place] [facility] [id number] PT STATUS: REG ER : 1995 PHYSICIAN: ROSA MONTYOA MD ADMIT DATE: 02/10/20/ER Signed Date of Exam:02/10/20 CT ABDOMEN/PELVIS W PROCEDURE: CT abdomen and pelvis with contrast. TECHNIQUE: Multiple contiguous axial images were obtained through the abdomen and pelvis after administration of intravenous contrast. Auto Exposure Controls were utilized during the CT exam to meet ALARA standards for radiation dose reduction. INDICATION: Abdominal pain. COMPARISON: August 06, 2019. FINDINGS: Visualized lung bases are clear. The liver, spleen, adrenal glands, pancreas, gallbladder, and kidneys are unremarkable. No aneurysmal dilatation of the abdominal aorta. The appendix is gas-filled and unremarkable. The urinary bladder is predominantly decompressed, but otherwise unremarkable. Extensive amount of stool throughout the colon. No evidence of small bowel obstruction. No significant adenopathy, free air, or free fluid within the abdomen or pelvis. Osseous structures are stable without acute osseous abnormality. IMPRESSION: Significant amount of stool throughout the colon felt related to constipation. Additional stable findings as above. Dictated by: Dictated on workstation # [id number] Dict: 02/10/20 1331 Trans: 02/10/20 1502 [facility] [id number] Interpreted by: FORREST ABDULLAHI MD Electronically signed by: FORREST ABDULLAHI MD 02/10/20 1502 [facility] [place] NAME: LAURA DE LA CRUZ [facility] REC#: [id number] PT STATUS: ADM IN : 1995 PHYSICIAN: ROSA MONTOYA MD ADMIT DATE: 02/10/20 Signed Date of Exam:02/10/20 CT ANGIO CHEST W PROCEDURE: CT angiography of the chest with contrast. TECHNIQUE: Multiple contiguous axial images were obtained through the chest after uneventful bolus administration of intravenous contrast. 3D reconstructed CTA MIP acquisitions were also performed. Auto Exposure Controls were utilized during the CT exam to meet ALARA standards for radiation dose reduction. INDICATION: Hypoxia, pulmonary embolism. COMPARISON: Radiographs from the same date. FINDINGS: No significant adenopathy within the chest. No aneurysmal dilatation of the thoracic aorta. The heart is within normal limits in size. No significant pericardial effusion. No pleural effusion. Elevation of the right hemidiaphragm. No pneumothorax. The left lung is clear. Mild tree-in-bud and reticular opacities are present within the right lung, including the right upper lobe and right middle lobe. Largest discrete nodule is noted within the right upper lobe measuring 5 mm. No significant filling defect within the central or segmental pulmonary arteries. Evaluation of subsegmental pulmonary arteries is limited. Partially visualized upper abdomen is grossly unremarkable. Healing/healed fractures involving the spinous processes within the upper and mid thoracic spine. More recent appearing fractures are noted involving the spinous processes of C7 and T1. No additional acute osseous abnormality. IMPRESSION: 1. Acute appearing fracturing involving the T7 and T1 spinous processes with healing/healed fractures involving the spinous processes within the mid thoracic spine. 2. No significant pulmonary embolus within the limits of the exam, though subsegmental pulmonary emboli are not optimally evaluated. 3. Mild tree-in-bud and reticular opacities within the right lung. This is nonspecific, though typically relates to underlying small airway or small vessel infectious or inflammatory process. 4. Elevation of the right hemidiaphragm. Dictated by: Dictated on workstation # [id number] Dict: 02/10/20 1604 Trans: 02/10/201801 [facility] [id number] Interpreted by: FORREST ABDULLAHI MD Electronically signed by: FORREST ABDULLAHI MD 02/10/201801 [facility] [place] NAME: LAURA DE LA CRUZ [facility] REC#: [id number] PT STATUS: ADM IN : 1995 PHYSICIAN: MARIO WALLIS MD ADMIT DATE: 02/10/20 Draft Date of Exam:02/11/20 CHEST 1 VIEW, AP/PA ONLY INDICATION: Pneumonia. Time of exam: 4:13 AM Correlation is made with prior chest one day earlier. The heart size is stable. Previously noted pulmonary infiltrates have improved. There has been significantly improved aeration to both lungs. No effusion or pneumothorax is identified. Thoracic deformity is noted. IMPRESSION: Overall improved aeration of both lungs when compared with prior examination from one day earlier. Dictated on workstation # [id number] Dict: 02/11/20 0832 Trans: 02/11/20 0841 [facility] [id number] Interpreted by: LILLI VALLE MD Electronically signed by: Assessment/Plan Admission Diagnosis Sepsis from CAP Admission Status: Inpatient Order (span 2 midnights) Reason for Inpatient Admission: IV abx, await cultures Assessment and Plan Sepsis from CAP Pulmonary nodule RLL infiltrate on CXR Tachycardiac and WBC of 12.6 qualify for sepsis Await cultures Continue abx Remains afebrile ?hypoxic in the ER but is on room air and ABG reveal PaO2 of 275 so unsure if he was actually hypoxic Mom informed of nodule by ER- outpatient follow up recommended Thoracic Spine Fracture Mom also informed of this in ER Mom will pursue further history from [facility] Intellectual Disability Epilepsy Continue home meds Continue Geodon Weight loss Will need continued outpatient work Stop metformin Diagnosis/Problems Diagnosis/Problems (1) Sepsis Status: Acute Qualifiers: Sepsis type: sepsis due to unspecified organism Sepsis acute organ dysfunction status: without acute organ dysfunction Qualified Codes: A41.9 - Sepsis, unspecified organism (2) Pneumonia Status: Acute Qualifiers: Pneumonia type: due to unspecified organism Laterality: right Lung location: lower lobe of lung Qualified Codes: J18.1 - Lobar pneumonia, unspecified organism (3) Fracture of spinous process of thoracic vertebra with routine healing Status: Acute Clinical Quality Measures DVT/VTE Risk/Contraindication: Risk Factor Score Per Nursin RFS Level Per Nursing on Admit: 4+=Very High AIDAN OCHOA MD Feb 11, 2020 09:16
[2020-02-11] MEDS ORDERED: polyethylene glycoL POWDER 17 GM (MIRALAX) PACK PO PRN (09:30)
--- NOTE | 2020-02-11 11:00 | NUR ---
SPOKE WITH MOTHER WHO WISHES US TO ADD LACTULOSE TO HER SON'S MEDICATIONS. I SPOKE WITH DR. OCHOA CONCERNING THIS
[2020-02-11] MEDS ORDERED: LACTULOSE SYRUP 10GM/15ML (ENULOSE) 30ML UDC PO NR (11:45)
[2020-02-11 11:53] VITALS: BP 90/49
--- NOTE | 2020-02-11 11:58 | NUR ---
SPOKE WITH ANIKA AT PT'S HOME, GAVE UPDATE.
[2020-02-11] MEDS ORDERED: VALPROIC ACID PO SCH (13:00)
[2020-02-11] MEDS: VALPROIC ACID SYRUP 250 MG/5 ML UDC PO SCH ×2 (13:29→21:36)
--- NOTE | 2020-02-11 14:14 | NUR ---
"RD ASSESSMENT PMHx: HTN; developmental disorder; seizure disorder; DM; Dubowitz syndrome PT INTERACTION: Note pt is non-verbal, per chart review. Note day-sat was present at bedside and was able to provide some diet hx. Day-sat states pt PO intake is normally good. Note PO intake of 25% x1meal, per chart review. Day-sat states pt follows a regular diet at home, and has no issues with chewing/swallowing food, though he does need his food cut up at times. Day-sat unaware of recent issues with nausea, vomiting, constipation, or diarrhea, and unsure of last BM. Note pt currently on bowel regimen of miralax TID; and colace BID, per chart review. Day-sat states recent wt of 93# x1w ago. Note this is a 6# wt gain in that timeframe. Note recent 20# wt loss x5mon, per chart review. This is significant at 17% wt loss. Day sat states current DM management is pretty good and that his blood glucose levels normally decline when he isn't eating. Note unable to determine recent HbA1c, per chart review. ABNORMAL NUTRITION-RELATED LAB VALUES LOW: HIGH: BUN 24; AST 44 Est. kcal needs: Est. Pro needs: PES STATEMENT: Inadequate oral intake (NI-2.1) related to loss of appetite as evidenced by pt (day-sat) interview | PO intake 25% x1meal INTERVENTION: Continue with current diet order of Regular diet. Pt may benefit from consistent CHO restriction if blood glucose levels become elevated. Pt may benefit from nutrition supplementation if PO intake declines. Did not offer diet education on DM management d/t pt being non-verbal. Will continue to follow and reassess as pt needs, intake, and status change. MONITOR/EVALUATE: PO Intake; Plan of Care; Hydration Status; Weight Status; Lab Values Annetta Garcia MS, SONAL, ARSLAN Addendum: 02/11/20 at [address] Given significant wt loss, and current poor PO intake, pt meets criteria for malnutrition per ASPEN guidelines. Annetta Garcia, MS, RD, LD"
[2020-02-11] MEDS ORDERED: DIPH25CA79 PO (15:31)
[2020-02-11] MEDS ORDERED: CARB100T6 PO (15:31)
[2020-02-11] MEDS ORDERED: POLY17PO6 PO (15:31)
[2020-02-11] MEDS ORDERED: LACT10SO PO (15:31)
[2020-02-11] MEDS ORDERED: PSYL1CAP3 PO (15:31)
[2020-02-11] MEDS ORDERED: GUAI100L13 PO (15:31)
[2020-02-11] MEDS ORDERED: MIRT15TA6 PO (15:31)
[2020-02-11] MEDS ORDERED: ACET-2267 PO (15:31)
[2020-02-11] MEDS ORDERED: MELA3TAB39 PO (15:31)
[2020-02-11] MEDS ORDERED: TRAM50TA3 PO (15:31)
[2020-02-11] MEDS ORDERED: CALC625T29 PO (15:31)
[2020-02-11] MEDS ORDERED: VALP250S3 PO (15:31)
--- NOTE | 2020-02-11 15:34 | NUR ---
I WENT THROUGH THE EXTERNAL MED HISTORY AND THE MED LIST TO COMPLETE THE MED REC. OTC: MIRALAX BENADRYL FIBER CAPSULE DOCUSATE SODIUM TYLENOL GUAIFENESIN SYRUP METAMUCIL
[2020-02-11 15:54] VITALS: BP 99/57
[2020-02-11] MEDS ORDERED: ENOXAPARIN 30 MG/0.3 ML (LOVENOX) SYR SC SCH (18:30)
[2020-02-11 19:20] VITALS: BP 96/52
--- NOTE | 2020-02-11 20:07 | Discharge Inst-Simple/Standard ---
Discharge Inst-Standard Discharge Medications New, Converted or Re-Newed RX: Transmitted to Pharmacy Patient Instructions/Follow Up Plan of Care/Instructions/FU: Please continue to take your medications as written. Please follow up with your primary care doctor in the next week tyo follow up this hospital stay. Activity as Tolerated: Yes Discharge Diet: No Restrictions Return to The Hospital For: Chest pain, fever, shortness of breath, low oxygen saturation, confusion, lethargy, if you feel you are getting worse. Planned Outpatient Orders/Ref. Pneu Vac Indicated: Yes AIDAN OCHOA MD Feb 11, 2020 19:57
[2020-02-11] MEDS: carBAMazepine 100 MG (TEGretol) CHEW PO SCH (21:37)
[2020-02-11 23:45] VITALS: BP 110/72
[2020-02-11] MEDS: LACTULOSE SYRUP 10GM/15ML (ENULOSE) 30ML UDC PO SCH (23:54)
[2020-02-12] MEDS: NS IV 1000 ML 1,000 ML IV SCH (02:10)
[2020-02-12 04:50] VITALS: BP 134/75
--- NOTE | 2020-02-12 06:55 | NUR ---
PT IV PULLED OUT, DR OCHOA SAID THAT IV CAN BE LEFT OUT FOR NOW
[2020-02-12 08:00] VITALS: BP 98/65
[2020-02-12] MEDS: LACTULOSE SYRUP 10GM/15ML (ENULOSE) 30ML UDC PO SCH (09:00)
[2020-02-12] MEDS: AZITHROMYCIN INJECTION 500 MG in NS (IVPB) 250 ML IV SCH (09:00)
[2020-02-12] MEDS: DOCUSATE SODIUM 100 MG (COLACE) CAP PO SCH (09:00)
[2020-02-12] MEDS: VALPROIC ACID SYRUP 250 MG/5 ML UDC PO SCH (09:01)
[2020-02-12] MEDS: carBAMazepine 100 MG (TEGretol) CHEW PO SCH (09:01)
[2020-02-12] MEDS: ZIPRASIDONE 20 MG (GEODON) CAP PO SCH (09:01)
--- NOTE | 2020-02-12 10:11 | Discharge Summary ---
Diagnosis/Chief Complaint Date of Admission Feb 10, 2020 at 16:40 Date of Discharge Discharge Date: Feb 11, 2020 Admission Diagnosis Sepsis from [facility] Primary Care Tobi Londono DO Discharge Diagnosis (1) Sepsis Status: Acute (2) Pneumonia Status: Acute (3) Fracture of spinous process of thoracic vertebra with routine healing Status: Acute Discharge Summary Discharge Physical Exam Allergies: Coded Allergies: No Known Drug Allergies (Unverified , 01/13/19) Vitals & I&Os Vital Signs Date Time Temp Pulse Resp B/P (MAP) Pulse Ox O2 Delivery O2 Flow Rate FiO2 02/12/20 11:25 36.8 78 22 98/65 100 Room Air 02/11/20 01:29 21 02/10/20 20:00 8.00 General Appearance: Chronically ill, Thin Respiratory: Lungs Clear, No Respiratory Distress Cardiovascular: Regular Rate, Rhythm, No Murmur Neurologic/Psychiatric: Alert Hospital Course Patient was admitted for lethargy and CAP. He was treated with Rocephin and Azitrhomycin and did very well. His mentation improved and he had an uneventful hospital stay. He was found to have thoracic fractures and a pulmonary nodule on CT in the ER. These findings were communicated to his mother by the ER doctor and I called and spoke with Dr Londono his PCP regarding follow up of this. He is to see Dr Londono in the next week. He was discharged home to complete his antibiotics orally. Labs (last 24 hrs) Patient resulted labs reviewed. Imaging: Reviewed Imaging Report Discussion & Recommendations Discharge Planning: >30 minutes discharge planning Discharge Home Medications: Active Scripts Active Azithromycin 250 Mg Tablet 250 Mg PO DAILY Keflex (Cephalexin) 500 Mg Capsule 500 Mg PO BID Reported Fiber Tabs (Calcium Polycarbophil) 625 Mg Tablet 625 Mg PO DAILY PRN Tylenol Extra Strength (Acetaminophen) 500 Mg Tablet 500 Mg PO Q8H PRN Metamucil Plus Calcium Capsule (Psyllium Husk/Ca Carbonate) 1 Each Capsule 1 Each PO DAILY PRN Melatonin 3 Mg Tablet 3 Mg PO HS Guaifenesin 100 Mg/5 Ml Liquid 100 Mg PO Q8H PRN Benadryl (Diphenhydramine HCl) 25 Mg Capsule 25 Mg PO Q6H PRN Valproic Acid (Valproic Acid (As Sodium Salt)) 250 Mg/5 Ml Solution 10 Ml PO Q8H Tramadol HCl 50 Mg Tablet 50 Mg PO TID Miralax (Polyethylene Glycol 3350) 17 Gm Powd.pack 17 Gm PO BID Carbamazepine 100 Mg Tab.chew 300 Mg PO BID Mirtazapine 15 Mg Tablet 15 Mg PO HS Lactulose 10 Gm/15 Ml Solution 30 Ml PO DAILY Docusate Sodium 100 Mg Capsule 100 Mg PO BID Instructions to patient/family Please see electronic discharge instructions given to patient. Clinical Quality Measures DVT/VTE Risk/Contraindication: Risk Factor Score Per Nursin RFS Level Per Nursing on Admit: 4+=Very High Problem Qualifiers (1) Sepsis: Sepsis type: sepsis due to unspecified organism Sepsis acute organ dysfunction status: without acute organ dysfunction Qualified Codes: A41.9 - Sepsis, unspecified organism (2) Pneumonia: Pneumonia type: due to unspecified organism Laterality: right Lung location: lower lobe of lung Qualified Codes: J18.1 - Lobar pneumonia, unspecified organism AIDAN OCHOA MD Feb 12, 2020 10:11
[2020-02-12] MEDS ORDERED: AZIT250T12 PO (10:35)
[2020-02-12] MEDS ORDERED: CEPH-507 PO (10:35)
[2020-02-12 11:25] VITALS: BP 98/65
== END 2020-02-12 11:35 | disposition home or self-care (01) | DRG 871 ==
LOC: EDUNIT# 12:13 → ER 12:14 → 4TH 16:40
PROVIDERS: ADMIT Internal Medicine; ATTEND Internal Medicine
DX: A41.9 Sepsis, unspecified organism (principal); J18.9 Pneumonia, unspecified organism; S22.019A Unspecified fracture of first thoracic vertebra, initial encounter for closed fracture; S22.069A Unspecified fracture of T7-T8 vertebra, initial encounter for closed fracture; Q87.19 Other congenital malformation syndromes predominantly associated with short stature; K59.00 Constipation, unspecified; R63.0 Anorexia; R63.4 Abnormal weight loss; R53.83 Other fatigue; I10 Essential (primary) hypertension; E11.9 Type 2 diabetes mellitus without complications; G40.909 Epilepsy, unspecified, not intractable, without status epilepticus; F79 Unspecified intellectual disabilities; D49.7 Neoplasm of unspecified behavior of endocrine glands and other parts of nervous system; R91.1 Solitary pulmonary nodule; F89 Unspecified disorder of psychological development; R46.89 Other symptoms and signs involving appearance and behavior; Y33.XXXA Other specified events, undetermined intent, initial encounter; Z79.4 Long term (current) use of insulin
CPT/HCPCS: 36415; 36600; 71045; 71275; 74177; 80053; 81000; 82805; 83605; 84145; 85007; 85025; 85027; 85379; 86141; 94640; 99291

== ENCOUNTER 2020-09-06 10:55 | Emergency (ER) | payer MEDICAID ==
[~2020-09-06] VITALS: Ht 152.4 cm; Wt 45.5 kg
[~2020-09-06 10:55] MED LIST changes: +ACET-2267 PO; +AZIT250T12 PO; +CALC625T29 PO; +DIPH25CA79 PO; -ESCI5TAB12 PO; +ESCI5TAB16 PO; +GUAI100L13 PO; +LACT10SO3 PO; +MELA3TAB39 PO; +MIRT15TA6 PO; +PSYL1CAP3 PO; +TRAM50TA3 PO; +VALP250S3 PO
[2020-09-06 10:59] VITALS: BP 133/93
--- NOTE | 2020-09-06 11:22 | ED EENT ---
History of Present Illness General Chief Complaint: Ear Problems Stated Complaint: EAR SWOLLEN Nursing Triage Note: AMB TO ED WITH CAREGIVER AND MOTHER WHO REPORT FOR 1 WEEK HAS HAD AREA ON L EAR. 3 WHITE AREA THAT ARE PIN SIZE . WAS TO SEE [facility] ON TUE BUT APPOINTMENT WAS CANCELLED DUE TO WEATHER. Source: patient, caregiver Exam Limitations: no limitations History of Present Illness Date Seen by Provider: Sep 06, 2020 Time Seen by Provider: 11:00 Initial Comments This patient presents to the ER with his caregiver with concerns about several small pustular looking lesions on the pinna of the left ear. They were noticed over the past week or so. They had an appointment scheduled with his PCP that was cancelled due to weather. There is no drainage and no inflammation. Ear is not swollen. Lesions do not appear painful. Patient has severe intellectual disability and cannot give any history. Allergies and Home Medications Allergies Coded Allergies: No Known Drug Allergies (Unverified , 01/13/19) Home Medications Acetaminophen 500 Mg Tablet, 500 MG PO Q8H PRN for PAIN-MILD (1-4), (Reported) Azithromycin 250 Mg Tablet, 250 MG PO DAILY Prescribed by: AIDAN OCHOA on 02/12/20 1035 Calcium Polycarbophil 625 Mg Tablet, 625 MG PO DAILY PRN for CONSTIPATION, (Reported) Carbamazepine 100 Mg Tab.chew, 300 MG PO BID, (Reported) Cephalexin 500 Mg Capsule, 500 MG PO BID Prescribed by: AIDAN OCHOA on 02/12/20 1035 Diphenhydramine HCl 25 Mg Capsule, 25 MG PO Q6H PRN for ALLERGY SYMPTOMS, (Reported) Docusate Sodium 100 Mg Capsule, 100 MG PO BID, (Reported) Guaifenesin 100 Mg/5 Ml Liquid, 100 MG PO Q8H PRN for CONGESTION, (Reported) Lactulose 10 Gm/15 Ml Solution, 30 ML PO DAILY, (Reported) Melatonin 3 Mg Tablet, 3 MG PO HS, (Reported) Mirtazapine 15 Mg Tablet, 15 MG PO HS, (Reported) Polyethylene Glycol 3350 17 Gm Powd.pack, 17 GM PO BID, (Reported) Psyllium Husk/Ca Carbonate 1 Each Capsule, 1 EACH PO DAILY PRN for CONSTIPATION, (Reported) Tramadol HCl 50 Mg Tablet, 50 MG PO TID, (Reported) Valproic Acid (As Sodium Salt) 250 Mg/5 Ml Solution, 10 ML PO Q8H, (Reported) Patient Home Medication List Home Medication List Reviewed: Yes Review of Systems Review of Systems Constitutional: no symptoms reported Eyes: No Symptoms Reported Ears: See HPI Nose: no symptoms reported Mouth: no symptoms reported Throat: no symptoms reported Respiratory: no symptoms reported Cardiovascular: no symptoms reported Gastrointestinal: no symptoms reported Musculoskeletal: no symptoms reported Skin: see HPI Neurological: See HPI Hematologic/Lymphatic: No Symptoms Reported Immunological/Allergic: no symptoms reported Past Bbmbwil-Hbarpu-Ubljal Hx Past Med/Social Hx: Reviewed Nursing Past Med/Soc Hx Patient Social History Alcohol Use: Denies Use Smoking Status: Never a Smoker 2nd Hand Smoke Exposure: No Recent Infectious Disease Expo: No Recent Hopitalizations: No Immunizations Up To Date Tetanus Booster (TDap): Unknown Seasonal Allergies Seasonal Allergies: No Past Medical History Surgeries: No Respiratory: No Cardiac: Yes Hypertension 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 1.0oz. [id number]; 19.00 BMI Method:Estimated General Appearance: WD/WN, no apparent distress Eyes: bilateral eye PERRL, bilateral eye EOMI, bilateral eye other (strabismus) Ears: left ear other (4 small pustular appearing lesions that are firm to palpation with not inflammation, swelling or TTP. ) Nose: normal inspection Neck: normal inspection Neurologic/Psychiatric: other (intellectual disability) Skin: normal color, warm/dry, other (see above) Procedures/Interventions Suture Size: 4-0 Progress Skin of the ear was cleaned with alcohol. Three of the lesions were nicked with a scalpel and firm thick keratinaceous or sebaceous material was expressed. Skin was again cleaned with alcohol. Progress/Results/Core Measures Results/Orders Vital Signs/I&O Blood Pressure Mean: 106 Departure Impression Primary Impression: Epidermal cyst of ear Disposition: 01 HOME, SELF-CARE Condition: Improved Departure-Patient Inst. Decision time for Depature: 11:21 Referrals: ALEJO RANDLE DO (PCP/Family) Primary Care Physician Patient Instructions: Epidermal Cyst Add. Discharge Instructions: The skin lesions on the ear are likely epidermal cyst. They are benign but can be periodically lanced and expressed if they are problematic. Monitor and return to care if they become inflamed, painful or appear infected. Call with questions or concerns. Return to care for worsening symptoms. All discharge instructions reviewed with patient and/or family. Voiced understanding. Copy Copies To 1: ALEJO RANDLE JOSHUA T MD Sep 06, 2020 11:22
== END 2020-09-06 11:28 | disposition home or self-care (01) ==
LOC: EDUNIT# 10:55 → ER 10:56
DX: L72.0 Epidermal cyst (principal); G40.909 Epilepsy, unspecified, not intractable, without status epilepticus
CPT/HCPCS: 99282

== ENCOUNTER 2020-10-15 12:17 | Emergency (ER) | payer MEDICAID ==
[~2020-10-15] VITALS: Ht 147 cm; Wt 49.8 kg
--- NOTE | 2020-10-15 13:16 | ED EENT ---
History of Present Illness General Chief Complaint: Ear Problems Stated Complaint: L EAR SWOLLEN Nursing Triage Note: pt presents to ed accompanied by respiratory technician with complaints of l ear pain and swelling starting today. History of Present Illness Date Seen by Provider: Oct 15, 2020 Time Seen by Provider: 12:55 Initial Comments 24-year-old -[place] male presents for left external ear swelling. It is mainly along the helix and fossa. He was seen here approximately 1 month ago for epidermal cyst excision to his left ear. He has significant development disabilities and is assisted by caregiver. The caregiver reports noting the swelling today but it was not reported yesterday. The patient denies any pain. His caregiver reports he is not demonstrating any symptoms that he normally does when he is in discomfort. Timing/Duration: this morning Location: ear (L) Prearrival Treatment: no prearrival treatment Associated Symptoms: denies symptoms Allergies and Home Medications Allergies Coded Allergies: No Known Drug Allergies (Unverified , 01/13/19) Home Medications Acetaminophen 500 Mg Tablet, 500 MG PO Q8H PRN for PAIN-MILD (1-4), (Reported) Azithromycin 250 Mg Tablet, 250 MG PO DAILY Prescribed by: AIDAN OCHOA on 02/12/20 1035 Calcium Polycarbophil 625 Mg Tablet, 625 MG PO DAILY PRN for CONSTIPATION, (Reported) Carbamazepine 100 Mg Tab.chew, 300 MG PO BID, (Reported) Cephalexin 500 Mg Capsule, 500 MG PO BID Prescribed by: AIDAN OCHOA on 02/12/20 1035 Diphenhydramine HCl 25 Mg Capsule, 25 MG PO Q6H PRN for ALLERGY SYMPTOMS, (Reported) Docusate Sodium 100 Mg Capsule, 100 MG PO BID, (Reported) Guaifenesin 100 Mg/5 Ml Liquid, 100 MG PO Q8H PRN for CONGESTION, (Reported) Lactulose 10 Gm/15 Ml Solution, 30 ML PO DAILY, (Reported) Melatonin 3 Mg Tablet, 3 MG PO HS, (Reported) Mirtazapine 15 Mg Tablet, 15 MG PO HS, (Reported) Polyethylene Glycol 3350 17 Gm Powd.pack, 17 GM PO BID, (Reported) Psyllium Husk/Ca Carbonate 1 Each Capsule, 1 EACH PO DAILY PRN for CONSTIPATION, (Reported) Sulfamethoxazole/Trimethoprim 1 Each Tablet, 1 EACH PO BID Prescribed by: DRISS CAMPBELL on 10/15/20 1406 Tramadol HCl 50 Mg Tablet, 50 MG PO TID, (Reported) Valproic Acid (As Sodium Salt) 250 Mg/5 Ml Solution, 10 ML PO Q8H, (Reported) Patient Home Medication List Home Medication List Reviewed: Yes Review of Systems Review of Systems Constitutional: no symptoms reported, see HPI Ears: See HPI, Pain (Left ear) All Other Systems Reviewed Negative Unless Noted: Yes Past Klgoazr-Asvovv-Ndrnep Hx Past Med/Social Hx: Reviewed Nursing Past Med/Soc Hx Patient Social History Alcohol Use: Denies Use 2nd Hand Smoke Exposure: No Recent Infectious Disease Expo: No Recent Hopitalizations: No Immunizations Up To Date Tetanus Booster (TDap): Unknown Seasonal Allergies Seasonal Allergies: No Past Medical History Surgeries: No Respiratory: No Cardiac: Yes Hypertension 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 1.0oz. [id number]; 23.00 BMI Method:Estimated General Appearance: WD/WN, no apparent distress Eyes: bilateral eye normal inspection, bilateral eye PERRL, bilateral eye EOMI Ears: right ear auricle normal; left ear swelling (Along the helix and fossa with fluctuance, no erythema, warmth or drainage. No pustules noted.); bilateral ear canal normal, bilateral ear TM normal Nose: normal inspection; No active bleeding, No discharge Mouth/Throat: normal mouth inspection, pharynx normal; No dental tenderness Neck: non-tender, full range of motion, supple, normal inspection; No lymphadenopathy (R), No lymphadenopathy (L) Cardiovascular: normal peripheral pulses, regular rate, rhythm Respiratory: chest non-tender, lungs clear, normal breath sounds Gastrointestinal: normal bowel sounds, non tender, soft Neurologic/Psychiatric: alert Skin: normal color, warm/dry Procedures/Interventions I&D : Site: Left ear helix and fossa Blade Size: 11 I & D Procedure: betadine prep Progress skin was cleansed with Betadine, 1.5 mL of 1% lidocaine infused to skin. Once for satisfactory local anesthetic was a pain an 11 blade was used to make a small incision. A trace amount of purulent drainage was expressed and a large collection of bloody fluid. A culture was obtained. Patient tolerated procedure well. A sterile bulky dressing was applied. Suture Size: 4-0 Progress/Results/Core Measures Results/Orders My Orders Orders - DRISS CAMPBELL Sulfamethoxazole/Trimet Ds Tab (Bactrim (10/15/20 14:15) Ear Culture (10/15/20 13:59) Medications Given in ED Current Medications Medications Dose Ordered Sig/Celeste Route Start Time Stop Time Status Last Admin Dose Admin Trimethoprim/ Sulfamethoxazole 1 ea ONCE ONCE PO 10/15/20 14:15 10/15/20 14:16 DC 10/15/20 14:21 1 EA Vital Signs/I&O 10/15/20 10/15/20 12:51 14:22 Temp 36.5 36.5 Pulse 97 96 Resp 18 18 B/P (MAP) 126/78 (94) 123/75 (94) Pulse Ox 100 100 Blood Pressure Mean: 94 Departure Impression Primary Impression: Abscess of left external ear Disposition: HOME, SELF-CARE Condition: Improved Departure-Patient Inst. Decision time for Depature: 13:50 Referrals: ALEJO RANDLE DO (PCP/Family) Primary Care Physician Patient Instructions: Abscess Incision and Drainage (DC) Add. Discharge Instructions: Clean wounds to left ear with peroxide and apply triple antibiotic ointment 3 times daily. Take antibiotics as prescribed. Follow-up with primary care provider if symptoms are not improving or worsen. Apply warm moist compresses to left ear for 5 to 10 minutes 3 times daily. You may alternate between Tylenol 650 mg and ibuprofen 600 mg every 4 hours as needed for pain or fever. Return to the emergency department for new, urgent healthcare needs. All discharge instructions reviewed with patient and/or family. Voiced und erstanding. Scripts Sulfamethoxazole/Trimethoprim (Bactrim Ds Tablet) 1 Each Tablet 1 EACH PO BID, #14 TAB 0 Refills Prov: DRISS CAMPBELL 10/15/20 DRISS CAMPBELL Oct 15, 2020 13:16
[2020-10-15] MEDS ORDERED: SULF1TAB35 PO (14:06)
[2020-10-15] MEDS ORDERED: TRIM/SULFAMETH 160/800 (SEPTRA DS) TAB PO ONE (14:15)
[2020-10-15 14:22] VITALS: BP 123/75
== END 2020-10-15 14:22 | disposition home or self-care (01) ==
LOC: EDUNIT# 12:17 → ER 12:18
DX: H60.01 Abscess of right external ear (principal); I10 Essential (primary) hypertension; G40.909 Epilepsy, unspecified, not intractable, without status epilepticus; E11.9 Type 2 diabetes mellitus without complications; F89 Unspecified disorder of psychological development
CPT/HCPCS: 10060; 87070

== ENCOUNTER 2021-11-15 13:15 | Emergency (ER) | payer MEDICAID ==
[~2021-11-15] VITALS: Ht 160 cm; Wt 54.0 kg
[~2021-11-15 13:15] MED LIST changes: +MIRT-68 PO; -MIRT15TA6 PO; -OLAN15TA19; +OLAN15TA35; +SULF1TAB38 PO
--- NOTE | 2021-11-15 14:01 | Diagnostic Imaging Report ---
HISTORY: Left 2nd finger bruising and swelling and pain TECHNIQUE: 3 views of the left 2nd finger COMPARISON: None FINDINGS: There does appear to be soft tissue swelling about the left 2nd finger proximal interphalangeal joint. There is deformity of the 2nd finger proximal phalanx which appears to be due to remote trauma. There are erosive changes about the 2nd, 3rd, 4th MCP joints and perhaps the 3rd PIP joint. Alignment otherwise appears normal and joint spaces are generally preserved. IMPRESSION: 1. Soft tissue swelling about the right 2nd finger PIP joint. Old posttraumatic deformity of the 2nd proximal phalanx with no acute fracture seen. 2. Subtle erosive changes, mostly in the MCP joints, can be seen with inflammatory arthropathy. Dictated by: Dictated on workstation # [id number]
--- NOTE | 2021-11-15 14:11 | ED Upper Extremity ---
General Chief Complaint: Upper Extremity Stated Complaint: FINGER INJ Nursing Triage Note: ARRIVED VIA AMB WITH MOM. PT IS SPECIAL NEEDS AND MOM STATES SHE NOTICED HIS LEFT INDEX FINGER WAS SWOLLEN ET BRUISED. (DRISS CAMPBELL) History of Present Illness Date Seen by Provider: November 15, 2021 Time Seen by Provider: 13:25 Initial Comments 25 year old male presents with his mother for swelling at the PIP index finger left hand. Patient is in residential care and his mother hasn't seen him in 2 weeks, today she noticed the left index finger to be swollen. The residential care staff deny any injuries. He is right hand dominant. He is using his left hand, with no restrictions. Pain/Injury Location: left 2nd finger Method of Injury: unknown (DRISS CAMPBELL) Allergies and Home Medications Allergies Coded Allergies: No Known Drug Allergies (Unverified , 01/13/19) Patient Home Medication List Home Medication List Reviewed: Yes (DRISS CAMPBELL) Acetaminophen (Tylenol Extra Strength) 500 Mg Tablet, 500 MG PO Q8H PRN for PAIN-MILD (1-4), (Reported) Entered as Reported by: KATHRYN BOLDEN on 02/11/20 1531 Azithromycin (Azithromycin) 250 Mg Tablet, 250 MG PO DAILY Prescribed by: AIDAN OCHOA on 02/12/20 1035 Calcium Polycarbophil (Fiber Tabs) 625 Mg Tablet, 625 MG PO DAILY PRN for CONSTIPATION, (Reported) Entered as Reported by: KATHRYN BOLDEN on 02/11/20 1531 Carbamazepine (Carbamazepine) 100 Mg Tab.chew, 300 MG PO BID, (Reported) Entered as Reported by: KATHRYN BOLDEN on 02/11/20 1531 Cephalexin (Keflex) 500 Mg Capsule, 500 MG PO BID Prescribed by: AIDAN OCHOA on 02/12/20 1035 Diphenhydramine HCl (Benadryl) 25 Mg Capsule, 25 MG PO Q6H PRN for ALLERGY SYMPTOMS, (Reported) Entered as Reported by: KATHRYN BOLDEN on 02/11/20 1531 Docusate Sodium (Docusate Sodium) 100 Mg Capsule, 100 MG PO BID, (Reported) Entered as Reported by: LEONIDES MILLER on 02/13/19 1428 Guaifenesin (Guaifenesin) 100 Mg/5 Ml Liquid, 100 MG PO Q8H PRN for CONGESTION, (Reported) Entered as Reported by: KATHRYN BOLDEN on 02/11/201530 Lactulose (Lactulose) 10 Gm/15 Ml Solution, 30 ML PO DAILY, (Reported) Entered as Reported by: KATHRYN BOLDEN on 02/11/201530 Melatonin (Melatonin) 3 Mg Tablet, 3 MG PO HS, (Reported) Entered as Reported by: KATHRYN BOLDEN on 02/11/201530 Mirtazapine (Mirtazapine) 15 Mg Tablet, 15 MG PO HS, (Reported) Entered as Reported by: KATHRYN BOLDEN on 02/11/201530 Polyethylene Glycol 3350 (Miralax) 17 Gm Powd.pack, 17 GM PO BID, (Reported) Entered as Reported by: KATHRYN BOLDEN on 02/11/201530 Psyllium Husk/Ca Carbonate (Metamucil Plus Calcium Capsule) 1 Each Capsule, 1 EACH PO DAILY PRN for CONSTIPATION, (Reported) Entered as Reported by: KATHRYN BOLDEN on 02/11/201530 Sulfamethoxazole/Trimethoprim (Bactrim Ds Tablet) 1 Each Tablet, 1 EACH PO BID Prescribed by: DRISS CAMPBELL on 10/15/20 1406 Tramadol HCl (Tramadol HCl) 50 Mg Tablet, 50 MG PO TID, (Reported) Entered as Reported by: KATHRYN BOLDEN on 02/11/201530 Valproic Acid (As Sodium Salt) (Valproic Acid) 250 Mg/5 Ml Solution, 10 ML PO Q8H, (Reported) Entered as Reported by: KATHRYN BOLDEN on 02/11/201530 Review of Systems Constitutional: no symptoms reported, see HPI Musculoskeletal: see HPI, joint pain (PIP left index finger) (DRISS CAMPBELL) All Other Systems Reviewed Negative Unless Noted: Yes (DRISS CAMPBELL) Past Vrbgwyf-Vxzmqp-Xqsqhs Hx Immunizations Up To Date Tetanus Booster (TDap): Unknown (DRISS CAMPBELL) Seasonal Allergies Seasonal Allergies: No (DRISS CAMPBELL) Past Medical History Surgeries: No Respiratory: No Cardiac: Yes Hypertension 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 1.0oz. 44.383156ot; 21.00 BMI Method:Estimated General Appearance: WD/WN, no apparent distress Cardiovascular: normal peripheral pulses, regular rate, rhythm Hand: Left, bone tenderness (trace index finger), soft tissue tenderness, swelling (PIP left index finger) Neurologic/Psychiatric: alert, normal mood/affect (DRISS CAMPBELL) Procedures/Interventions Suture Size: 4-0 (DRISS CAMPBELL) Progress/Results/Core Measures Progress Progress Note : Time: 13:25 Progress Note Patient seen and evaluated, will obtain x-ray of the left index finger and reevaluate. 1400 Finger splint applied to left index finger. Patient tolerated well. Discharge instructions explained to the patient's mother and care worker. (DRISS CAMPBELL) Diagnostic Imaging Diagonstic Imaging: Xray Plain Films/CT/US/NM/MRI: other (finger) Comments NAME: LAURA DE LA CRUZ [facility] REC#: [id number] PT STATUS: REG ALEXANDRA : 1995 PHYSICIAN: DRISS CAMPBELL ADMIT DATE: 11/15/21/ER Draft Date of Exam:11/15/21 FINGER(S) HISTORY: Left 2nd finger bruising and swelling and pain TECHNIQUE: 3 views of the left 2nd finger COMPARISON: None FINDINGS: There does appear to be soft tissue swelling about the left 2nd finger proximal interphalangeal joint. There is deformity of the 2nd finger proximal phalanx which appears to be due to remote trauma. There are erosive changes about the 2nd, 3rd, 4th MCP joints and perhaps the 3rd PIP joint. Alignment otherwise appears normal and joint spaces are generally preserved. IMPRESSION: 1. Soft tissue swelling about the right 2nd finger PIP joint. Old posttraumatic deformity of the 2nd proximal phalanx with no acute fracture seen. 2. Subtle erosive changes, mostly in the MCP joints, can be seen with inflammatory arthropathy. Dictated on workstation # [id number] Dict: 11/15/21 1355 Trans: 11/15/21 1401 [facility] [id number] Interpreted by: DEL MAY MD Electronically signed by: Reviewed: Reviewed by Me (DRISS CAMPBELL) Departure Impression Primary Impression: Finger pain, right Disposition: HOME, SELF-CARE Condition: Improved Departure-Patient Inst. Decision time for Depature: 14:05 (DRISS CAMPBELL) Referrals: ALEJO RANDLE DO (PCP/Family) Primary Care Physician Patient Instructions: Yaya Esparza (DC) Add. Discharge Instructions: Activity as tolerated to right hand. May use ibuprofen 600 mg, alternating with Tylenol 650 mg every 4 hours as needed for pain or discomfort. Warm moist compress to left index finger. Use finger splint, with tape to secure, when up and around. May remove for bathing, or if it becomes wet. Follow-up with primary care provider if symptoms or not improving or worsen. Return to the emergency department for new, urgent healthcare needs. All discharge instructions reviewed with patient and/or family. Voiced un derstanding. ATTENDING PHYSICIAN NOTE: I WAS PHYSICALLY PRESENT ER PHYSICIAN, BUT I WAS NOT INVOLVED IN ANY DECISION MAKING OR ANY CARE OF THIS PATIENT. (SHANTELL ALMENDAREZ DO) DRISS CAMPBELL November 15, 2021 14:11 SHANTELL ALMENDAREZ DO November 15, 2021 17:26
== END 2021-11-15 14:27 | disposition home or self-care (01) ==
LOC: EDUNIT# 13:15 → ER 13:17
DX: M79.89 Other specified soft tissue disorders (principal); E11.9 Type 2 diabetes mellitus without complications; Z79.4 Long term (current) use of insulin; M79.645 Pain in left finger(s)
CPT/HCPCS: 73140; 99281

== ENCOUNTER 2022-06-27 12:33 | Emergency (ER) | payer MEDICAID ==
[~2022-06-27] VITALS: Ht 152 cm; Wt 49.8 kg
[~2022-06-27 12:33] MED LIST changes: -BALO40TA PO; +BALO40TA4 PO
--- NOTE | 2022-06-27 12:53 | ED General ---
General Chief Complaint: Neurological Problems Stated Complaint: SEIZURES Source of Information: EMS, Family Exam Limitations: Physical Impairments History of Present Illness Date Seen by Provider: Jun 27, 2022 Time Seen by Provider: 12:37 Initial Comments 26yo male to ER by EMS after multiple seziures reported at his care facility to day. He has a history of DUBOWITZ syndrome. Timing/Duration: 4-6 Hours Severity: Moderate Allergies and Home Medications Allergies Coded Allergies: No Known Drug Allergies (Unverified , 01/13/19) Patient Home Medication List Home Medication List Reviewed: Yes Acetaminophen (Tylenol Extra Strength) 500 Mg Tablet, 500 MG PO Q8H PRN for PAIN-MILD (1-4), (Reported) Entered as Reported by: KATHRYN BOLDEN on 02/11/20 1531 Azithromycin (Azithromycin) 250 Mg Tablet, 250 MG PO DAILY Prescribed by: AIDAN OCHOA on 02/12/20 1035 Calcium Polycarbophil (Fiber Tabs) 625 Mg Tablet, 625 MG PO DAILY PRN for CONSTIPATION, (Reported) Entered as Reported by: KATHRYN BOLDEN on 02/11/20 1531 Carbamazepine (Carbamazepine) 100 Mg Tab.chew, 300 MG PO BID, (Reported) Entered as Reported by: KATHRYN BOLDEN on 02/11/20 1531 Cephalexin (Keflex) 500 Mg Capsule, 500 MG PO BID Prescribed by: AIDAN OCHOA on 02/12/20 1035 Diphenhydramine HCl (Benadryl) 25 Mg Capsule, 25 MG PO Q6H PRN for ALLERGY SYMPTOMS, (Reported) Entered as Reported by: KATHRYN BOLDEN on 02/11/20 1531 Docusate Sodium (Docusate Sodium) 100 Mg Capsule, 100 MG PO BID, (Reported) Entered as Reported by: LEONIDES MILLER on 02/13/19 1428 Guaifenesin (Guaifenesin) 100 Mg/5 Ml Liquid, 100 MG PO Q8H PRN for CONGESTION, (Reported) Entered as Reported by: KATHRYN BOLDEN on 02/11/20 1531 Lactulose (Lactulose) 10 Gm/15 Ml Solution, 30 ML PO DAILY, (Reported) Entered as Reported by: KATHRYN BOLDEN on 02/11/20 1531 Melatonin (Melatonin) 3 Mg Tablet, 3 MG PO HS, (Reported) Entered as Reported by: KATHRYN BOLDEN on 02/11/20 153 Mirtazapine (Mirtazapine) 15 Mg Tablet, 15 MG PO HS, (Reported) Entered as Reported by: KATHRYN BOLDEN on 02/11/201530 Polyethylene Glycol 3350 (Miralax) 17 Gm Powd.pack, 17 GM PO BID, (Reported) Entered as Reported by: KATHRYN BOLDEN on 02/11/201530 Psyllium Husk/Ca Carbonate (Metamucil Plus Calcium Capsule) 1 Each Capsule, 1 EACH PO DAILY PRN for CONSTIPATION, (Reported) Entered as Reported by: KATHRYN BOLDEN on 02/11/20 153 Sulfamethoxazole/Trimethoprim (Bactrim Ds Tablet) 1 Each Tablet, 1 EACH PO BID Prescribed by: DRISS CAMPBELL on 10/15/20 1406 Tramadol HCl (Tramadol HCl) 50 Mg Tablet, 50 MG PO TID, (Reported) Entered as Reported by: KATHRYN BOLDEN on 02/11/201530 Valproic Acid (As Sodium Salt) (Valproic Acid) 250 Mg/5 Ml Solution, 10 ML PO Q8H, (Reported) Entered as Reported by: KATHRYN BOLDEN on 02/11/201530 Review of Systems Review of Systems Constitutional: see HPI Unable to obtain secondary to Intellectual disability Past Qjtjqma-Zdlrrl-Fdocfz Hx Patient Social History Tobacco Use?: No Substance use?: No Alcohol Use?: No Pt feels they are or have been: No Immunizations Up To Date Tetanus Booster (TDap): Unknown Seasonal Allergies Seasonal Allergies: No Past Medical History Surgery/Hospitalization HX: PMH: DM, DUBOWITZ SYNDROME, SEIZURES, MR, MOSTLY NONVERBAL. 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 1.0oz. 44.732487mw; 21.00 BMI Method:Estimated General Appearance: No Apparent Distress, Thin Eyes: Bilateral Eye Normal Inspection, Bilateral Eye PERRL, Bilateral Eye EOMI HEENT: Other (small lesion (tongue bite?) left anterio tongue) Neck: Full Range of Motion, Normal Inspection Respiratory: Lungs Clear, Normal Breath Sounds, No Accessory Muscle Use, No Respiratory Distress Cardiovascular: Regular Rate, Rhythm, Normal Peripheral Pulses Gastrointestinal: Non Tender, Soft Extremity: Normal Capillary Refill, Normal Inspection, Normal Range of Motion, Non Tender, No Calf Tenderness, No Pedal Edema Neurologic/Psychiatric: Alert, No Motor/Sensory Deficits, Other (at normal neuro baseline per family/caregiver) Skin: Normal Color, Warm/Dry Procedures/Interventions Suture Size: 4-0 Progress/Results/Core Measures Suspected Sepsis SIRS Temperature: Pulse: Respiratory Rate: Blood Pressure / Mean: Results/Orders My Orders Orders - SHAE WHITE MD Accucheck Stat ONCE (06/27/22 12:44) Carbamazepine Chewable Tablet (Tegretol (06/27/22 13:00) Medications Given in ED Current Medications Medications Dose Ordered Sig/Celeste Route Start Time Stop Time Status Last Admin Dose Admin Carbamazepine 300 mg ONCE ONCE PO 06/27/22 13:00 06/27/22 13:01 DC 06/27/22 13:18 300 MG Vital Signs/I&O 06/27/22 12:40 Temp 37.2 Pulse 80 Resp 18 B/P (MAP) 136/54 (81) Pulse Ox 96 Capillary Refill : Progress Note : Time: 14:02 Progress Note Patient monitored about an hour and a half. Given a dose of his carbamazepine. Resting comfortably. Mom [facility] pharmacy [facility] use through the facility has not sent his meds yet. I have advised mom he can have his next dose tonight. He has an appointment with his neurologist at on 07/01 this week. SHe states he is at his neuro baseline. (although unusually placid). She is comfortable with discharge to home. Departure Impression Primary Impression: Seizure Additional Impression: Seizure disorder Disposition: HOME, SELF-CARE Condition: Stable Departure-Patient Inst. Decision time for Depature: 13:33 Referrals: ALEJO RANDLE DO (PCP/Family) Primary Care Physician Patient Instructions: Seizures Add. Discharge Instructions: Try and restart his carbamazepine first thing this morning. Continue all his other medications. Return to the ER for any new, concerning or emergent complaints. Scripts Carbamazepine (Carbamazepine) 100 Mg/5 Ml Oral.susp 300 MG PO BID for 30 Days, #900 ML Prov: SHAE WHITE MD 06/27/22 Copy Copies To 1: ALEJO RANDLE KATHRYN M MD Jun 27, 2022 12:53
[2022-06-27] MEDS ORDERED: carBAMazepine 100 MG (TEGretol) CHEW PO ONE (13:00)
[2022-06-27] MEDS ORDERED: CARB100/5M PO (14:10)
[2022-06-27 14:24] VITALS: BP 125/84
== END 2022-06-27 14:24 | disposition home or self-care (01) ==
LOC: EDUNIT# 12:33 → ER 12:34
DX: G40.909 Epilepsy, unspecified, not intractable, without status epilepticus (principal)
CPT/HCPCS: 99283

== ENCOUNTER 2022-09-16 18:52 | Emergency (ER) | payer MEDICAID ==
[~2022-09-16] VITALS: Ht 152 cm; Wt 52.0 kg
[~2022-09-16 18:52] MED LIST changes: +CARB100/5M PO
--- NOTE | 2022-09-16 19:25 | ED General ---
General Chief Complaint: Glucose Problems Stated Complaint: NOT ACTING NORMAL AFTER SEIZURE Nursing Triage Note: PT AMB TO RM 7 W MOTHER AND WORKER. STATES HAD 2 MIN SEIZURE THIS AM, AND SUGARS HAVE BEEN HIGH. HAS SLEPT ALL DAY AFTER SEIZURE. WANNA GET SUGARS CHECKED OUT Source of Information: Caregiver, Family Exam Limitations: No Limitations, Other History of Present Illness Date Seen by Provider: Sep 16, 2022 Time Seen by Provider: 19:10 Initial Comments 26-year-old male with history of dubowitz syndrome presents to the ER with his mother and caregiver for concerns of acting abnormal since he had a seizure that lasted 2 minutes at 2 AM this morning. Reports he has slept all day. States he did not want to eat dinner tonight. Mother reports that his seizures have been longer in duration and more frequent recently. Reports they have an appointment with his neurologist on November 04. He takes carbamazepine and valproic acid for seizures, family and caregiver deny any missed doses. Denies any recent illness. Denies fever, cough, vomiting. Reports he has issues with constipation, unsure of his last bowel movement. Allergies and Home Medications Allergies Coded Allergies: No Known Drug Allergies (Unverified , 01/13/19) Patient Home Medication List Home Medication List Reviewed: Yes Acetaminophen (Tylenol Extra Strength) 500 Mg Tablet, 500 MG PO Q8H PRN for PAIN-MILD (1-4), (Reported) Entered as Reported by: KATHRYN BOLDEN on 02/11/20 153 Azithromycin (Azithromycin) 250 Mg Tablet, 250 MG PO DAILY Prescribed by: AIDAN OCHOA on 02/12/20 1035 Calcium Polycarbophil (Fiber Tabs) 625 Mg Tablet, 625 MG PO DAILY PRN for CONSTIPATION, (Reported) Entered as Reported by: KATHRYN BOLDEN on 02/11/20 153 Carbamazepine (Carbamazepine) 100 Mg Tab.chew, 300 MG PO BID, (Reported) Entered as Reported by: KATHRYN BOLDEN on 02/11/20 1531 Carbamazepine (Carbamazepine) 100 Mg/5 Ml Oral.susp, 300 MG PO BID Prescribed by: SHAE WHITE on 06/27/22 1410 Cephalexin (Keflex) 500 Mg Capsule, 500 MG PO BID Prescribed by: AIDAN OCHOA on 02/12/20 1035 Diphenhydramine HCl (Benadryl) 25 Mg Capsule, 25 MG PO Q6H PRN for ALLERGY SYMPTOMS, (Reported) Entered as Reported by: KATHRYN BOLDEN on 02/11/20 153 Docusate Sodium (Docusate Sodium) 100 Mg Capsule, 100 MG PO BID, (Reported) Entered as Reported by: LEONIDES MILLER on 02/13/19 1428 Guaifenesin (Guaifenesin) 100 Mg/5 Ml Liquid, 100 MG PO Q8H PRN for CONGESTION, (Reported) Entered as Reported by: KATHRYN BOLDEN on 02/11/20 153 Lactulose (Lactulose) 10 Gm/15 Ml Solution, 30 ML PO DAILY, (Reported) Entered as Reported by: KATHRYN BOLDEN on 02/11/20 153 Melatonin (Melatonin) 3 Mg Tablet, 3 MG PO HS, (Reported) Entered as Reported by: KATHRYN BOLDEN on 02/11/20 153 Mirtazapine (Mirtazapine) 15 Mg Tablet, 15 MG PO HS, (Reported) Entered as Reported by: KATHRYN BOLDEN on 02/11/20 153 Polyethylene Glycol 3350 (Miralax) 17 Gm Powd.pack, 17 GM PO BID, (Reported) Entered as Reported by: KATHRYN BOLDEN on 02/11/20 153 Polyethylene Glycol 3350 (Miralax) 17 Gram Powd.pack, 17 GM PO DAILY Prescribed by: Karen Mcfarlane on 09/16/22 210 Psyllium Husk/Ca Carbonate (Metamucil Plus Calcium Capsule) 1 Each Capsule, 1 EACH PO DAILY PRN for CONSTIPATION, (Reported) Entered as Reported by: KATHRYN BOLDEN on 02/11/20 153 Sulfamethoxazole/Trimethoprim (Bactrim Ds Tablet) 1 Each Tablet, 1 EACH PO BID Prescribed by: DRISS CAMPBELL on 10/15/20 1406 Tramadol HCl (Tramadol HCl) 50 Mg Tablet, 50 MG PO TID, (Reported) Entered as Reported by: KATHRYN BOLDEN on 02/11/20 153 Valproic Acid (As Sodium Salt) (Valproic Acid) 250 Mg/5 Ml Solution, 10 ML PO Q8H, (Reported) Entered as Reported by: KATHRYN BOLDEN on 02/11/20 153 Review of Systems Review of Systems Constitutional: see HPI Past Wibtlrm-Eopavr-Ofevlt Hx Patient Social History Tobacco Use?: No Substance use?: No Alcohol Use?: No Pt feels they are or have been: No Immunizations Up To Date Tetanus Booster (TDap): Unknown Influenza Vaccine Up-to-Date: No; Not Current First/Initial COVID19 Vaccinat: YES Second COVID19 Vaccination Jus: YES Seasonal Allergies Seasonal Allergies: No Past Medical History Surgery/Hospitalization HX: PMH: DM, DUBOWITZ SYNDROME, SEIZURES, MR, MOSTLY NONVERBAL. 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 1.0oz. 44.572236ha; 22.00 BMI Method:Estimated General Appearance: No Apparent Distress, WD/WN HEENT: PERRL/EOMI Neck: Normal Inspection, Supple Respiratory: Lungs Clear, Normal Breath Sounds, No Accessory Muscle Use Cardiovascular: Regular Rate, Rhythm, No Edema, No Gallop, No JVD, No Murmur Neurologic/Psychiatric: Alert, Other (Resting in bed, appears tired) Skin: Normal Color, Warm/Dry Procedures/Interventions Suture Size: 4-0 Progress/Results/Core Measures Suspected Sepsis SIRS Temperature: Pulse: 88 Respiratory Rate: 18 Laboratory Tests 09/16/22 19:27: White Blood Count 7.1 Blood Pressure 101 /83 Mean: 89 Laboratory Tests 09/16/22 19:27: Creatinine 0.91, Platelet Count 241, Total Bilirubin 0.2 Results/Orders Lab Results Laboratory Tests Test 09/16/22 19:02 09/16/22 19:27 09/18/22 07:15 Range/Units Glucometer 146 H 70-110 MG/DL White Blood Count 7.1 4.3-11.0 10^3/uL Red Blood Count 4.01 L 4.30-5.52 10^6/uL Hemoglobin 13.2 L 13.3-17.7 g/dL Hematocrit 38 L 40-54 % Mean Corpuscular Volume 94 80-99 fL Mean Corpuscular Hemoglobin 33 25-34 pg Mean Corpuscular Hemoglobin Concent 35 32-36 g/dL Red Cell Distribution Width 12.2 10.0-14.5 % Platelet Count 241 130-400 10^3/uL Mean Platelet Volume 8.9 L 9.0-12.2 fL Immature Granulocyte % (Auto) 0 % Neutrophils (%) (Auto) 46 42-75 % Lymphocytes (%) (Auto) 42 12-44 % Monocytes (%) (Auto) 11 0-12 % Eosinophils (%) (Auto) 1 0-10 % Basophils (%) (Auto) 0 0-10 % Neutrophils # (Auto) 3.3 1.8-7.8 10^3/uL Lymphocytes # (Auto) 3.0 1.0-4.0 10^3/uL Monocytes # (Auto) 0.8 0.0-1.0 10^3/uL Eosinophils # (Auto) 0.1 0.0-0.3 10^3/uL Basophils # (Auto) 0.0 0.0-0.1 10^3/uL Immature Granulocyte # (Auto) 0.0 0.0-0.1 10^3/uL Sodium Level 143 135-145 MMOL/L Potassium Level 4.1 3.6-5.0 MMOL/L Chloride Level 106 98-107 MMOL/L Carbon Dioxide Level 29 21-32 MMOL/L Anion Gap 8 5-14 MMOL/L Blood Urea Nitrogen 18 7-18 MG/DL Creatinine 0.91 0.60-1.30 MG/DL Estimat Glomerular Filtration Rate 118 BUN/Creatinine Ratio 20 Glucose Level 181 H 70-105 MG/DL Calcium Level 9.2 8.5-10.1 MG/DL Corrected Calcium 9.5 8.5-10.1 MG/DL Total Bilirubin 0.2 0.1-1.0 MG/DL Aspartate Amino Transf (AST/SGOT) 34 5-34 U/L Alanine Aminotransferase (ALT/SGPT) 22 0-55 U/L Alkaline Phosphatase 133 40-136 U/L Total Protein 7.0 6.4-8.2 GM/DL Albumin 3.6 3.2-4.5 GM/DL Valproic Acid (Depakene) Level 46.5 L 50.0-100.0 UG/ML Carbamazepine (Tegretol) Level 5.9 4.0-12.0 UG/ML Urine Color YELLOW Urine Clarity CLEAR Urine pH 6.0 5-9 Urine Specific Sherman >=1.030 1.016-1.022 Urine Protein NEGATIVE NEGATIVE Urine Glucose (UA) 1+ H NEGATIVE Urine Ketones NEGATIVE NEGATIVE Urine Nitrite NEGATIVE NEGATIVE Urine Bilirubin NEGATIVE NEGATIVE Urine Urobilinogen 0.2 < = 1.0 MG/DL Urine Leukocyte Esterase NEGATIVE NEGATIVE Urine RBC (Auto) NEGATIVE NEGATIVE Urine RBC 5-10 H /HPF Urine WBC 2-5 /HPF Urine Squamous Epithelial Cells 5-10 /HPF Urine Crystals NONE /LPF Urine Bacteria TRACE /HPF Urine Casts NONE /LPF Urine Mucus SMALL H /LPF Urine Culture Indicated NO My Orders Orders - KAREN MCFARLANE APRN Carbamazepine (Tegretol) (09/16/22 19:16) Cbc With Automated Diff (09/16/22 19:16) Comprehensive Metabolic Panel (09/16/22 19:16) Valproic Acid (09/16/22 19:16) Ct Head Wo (09/16/22 19:16) Abdomen, Flat & Upright/Decub (09/16/22 19:16) Urinalysis (09/18/22 07:15) Vital Signs/I&O 09/16/22 09/16/22 18:57 21:14 Temp 35.5 Pulse 88 81 Resp 18 18 B/P (MAP) 101/83 (89) 112/88 Pulse Ox 97 99 O2 Delivery Room Air Capillary Refill : Blood Pressure Mean: 89 Progress Note #1: Time: 19:24 Progress Note Patient seen and evaluated, resting comfortably in bed, no acute distress. Based on exam and symptoms, will initiate work-up including CBC, CMP, valproic acid level, carbamazepine level, UA, abdominal x-ray, CT head. Progress Note #2: Time: 20:55 Progress Note Labs, CT, and x-ray reviewed. CBC shows low RBC at 4.01, low hemoglobin of 13.2, low hematocrit of 38, both of these are improved from previous CBC. CMP grossly normal, except elevated glucose of 181. Valproic acid level slightly low, carbamazepine level normal. Mother and caregiver instructed to give night dose of valproic acid when he gets home. Will not give loading dose in ED. X-ray shows large amount of stool. Mother and caregiver instructed to administer enema tonight when they get home. Patient has also been out of his Miralax, will prescribe for him to restart. CT head is normal. Results discussed with mother. Patient unable to provide urine sample here, will order outpatient UA and send with supplies to collect. Mother agreeable to discharge plan. Discharge instructions and return precautions provided. Diagnostic Imaging Diagonstic Imaging: Xray Plain Films/CT/US/NM/MRI: abdomen Comments [facility], [place] [facility] [id number] PT STATUS: REG ER : 1995 PHYSICIAN: KAREN MCFARLANE APRN ADMIT DATE: 09/16/22/ER Signed Date of Exam:09/16/22 ABDOMEN, FLAT & UPRIGHT/DECUB EXAM: Abdomen, flat upright/decub INDICATION: Abdominal pain. COMPARISON: None. FINDINGS: Nonspecific bowel gas pattern. Large amount of stool throughout much of the colon and rectum. No free intraperitoneal air. Lung bases are clear. IMPRESSION: Large amount of stool throughout most of the colon and rectum suggesting constipation. Dictated by: Dictated on workstation # [id number] Dict: 09/16/222003 Trans: 09/16/222051 [facility] [id number] Interpreted by: JENNY GALLO MD Electronically signed by: JENNY GALLO MD 09/16/222051 Diagonstic Imaging: CT Plain Films/CT/US/NM/MRI: head Comments [facility], [place], [place] [facility] [id number] PT STATUS: REG ER : 1995 PHYSICIAN: KAREN MCFARLANE APRN ADMIT DATE: 09/16/22/ER Signed Date of Exam:09/16/22 CT HEAD WO PROCEDURE: CT head without contrast. TECHNIQUE: Multiple contiguous axial images were obtained through the brain without the use of intravenous contrast. Auto Exposure Controls were utilized during the CT exam to meet ALARA standards for radiation dose reduction. INDICATION: Seizure. COMPARISON: None. FINDINGS: No intracranial hemorrhage, mass effect, hydrocephalus or extra-axial fluid collection. No CT evidence of a territorial infarction. No acute osseous finding. Paranasal sinuses and mastoids are clear. IMPRESSION: No acute intracranial CT finding. Dictated by: Dictated on workstation # [id number] Departure Impression Primary Impression: Seizure disorder Disposition: HOME, SELF-CARE Condition: Stable Departure-Patient Inst. Decision time for Depature: 20:58 Referrals: ALEJO RANDLE DO (PCP/Family) Primary Care Physician Patient Instructions: Seizures Add. Discharge Instructions: You may do an enema tonight to help with constipation. Start using MiraLAX again. You may use it twice a day until a bowel movement is produced then reduce to once a day. Take your night dose of valproic acid when you get home tonight. Continue taking your medications as prescribed. Return here with your urine sample obtained. Follow-up with primary care provider and neurologist. Return for fever, persistent seizures, or any other new, concerning, worsening symptoms. All discharge instructions reviewed with patient and/or family. Voiced understanding. Scripts Polyethylene Glycol 3350 (Miralax) 17 Gram Powd.pack 17 GM PO DAILY, #1 EACH 0 Refills Prov: KAREN MCFARLANE APRN 09/16/22 Copy Copies To 1: ALEJO RANDLE BRITTANY R APRN Sep 16, 2022 19:25
[2022-09-16 19:37] LABS: BASOPHILS % (AUTO) 0 % (0-10); EOSINOPHILS # (AUTO) 0.1 10^3/uL (0.0-0.3); EOSINOPHILS % (AUTO) 1 % (0-10); HEMATOCRIT 38 % (40-54); HEMOGLOBIN 13.2 g/dL (13.3-17.7); LYMPHOCYTES % (AUTO) 42 % (12-44); MEAN CORPUSCULAR HEMOGLOBIN 33 pg (25-34); MEAN CORPUSCULAR HGB CONC 35 g/dL (32-36); MEAN CORPUSCULAR VOLUME 94 fL (80-99); MEAN PLATELET VOLUME 8.9 fL (9.0-12.2); MONOCYTES # (AUTO) 0.8 10^3/uL (0.0-1.0); MONOCYTES % (AUTO) 11 % (0-12); NEUTROPHILS # (AUTO) 3.3 10^3/uL (1.8-7.8); NEUTROPHILS % (AUTO) 46 % (42-75); PLATELET COUNT 241 10^3/uL (130-400); WHITE BLOOD COUNT 7.1 10^3/uL (4.3-11.0)
[2022-09-16 20:03] LABS: ALBUMIN 3.6 GM/DL (3.2-4.5); BILIRUBIN,TOTAL 0.2 MG/DL (0.1-1.0); CALCIUM 9.2 MG/DL (8.5-10.1); CREATININE SERUM 0.91 MG/DL (0.60-1.30); POTASSIUM 4.1 MMOL/L (3.6-5.0)
[2022-09-16 20:04] LABS: VALPROIC ACID 46.5 UG/ML (50.0-100.0)
--- NOTE | 2022-09-16 20:10 | Diagnostic Imaging Report ---
EXAM: Abdomen, flat upright/decub INDICATION: Abdominal pain. COMPARISON: None. FINDINGS: Nonspecific bowel gas pattern. Large amount of stool throughout much of the colon and rectum. No free intraperitoneal air. Lung bases are clear. IMPRESSION: Large amount of stool throughout most of the colon and rectum suggesting constipation. Dictated by: Dictated on workstation # [id number]
--- NOTE | 2022-09-16 20:14 | Diagnostic Imaging Report ---
PROCEDURE: CT head without contrast. TECHNIQUE: Multiple contiguous axial images were obtained through the brain without the use of intravenous contrast. Auto Exposure Controls were utilized during the CT exam to meet ALARA standards for radiation dose reduction. INDICATION: Seizure. COMPARISON: None. FINDINGS: No intracranial hemorrhage, mass effect, hydrocephalus or extra-axial fluid collection. No CT evidence of a territorial infarction. No acute osseous finding. Paranasal sinuses and mastoids are clear. IMPRESSION: No acute intracranial CT finding. Dictated by: Dictated on workstation # [id number]
[2022-09-16 20:53] LABS: CARBAMAZEPINE (TEGRETOL) 5.9 UG/ML (4.0-12.0)
[2022-09-16] MEDS ORDERED: POLY17PO6 PO (21:02)
[2022-09-16 21:14] VITALS: BP 112/88
== END 2022-09-16 21:14 | disposition home or self-care (01) ==
LOC: EDUNIT# 18:52 → ER 18:54
DX: G40.909 Epilepsy, unspecified, not intractable, without status epilepticus (principal); D64.9 Anemia, unspecified; R19.5 Other fecal abnormalities; E11.9 Type 2 diabetes mellitus without complications; Z79.4 Long term (current) use of insulin; Z79.899 Other long term (current) drug therapy
CPT/HCPCS: 36415; 70450; 74019; 80053; 80156; 80164; 82947; 85025

== ENCOUNTER → 2022-09-18 | Outpatient (CLI) | payer MEDICAID ==
[2022-09-18 21:21] LABS: BILIRUBIN,URINE NEGATIVE (NEGATIVE); CLARITY,URINE CLEAR; COLOR,URINE YELLOW; GLUCOSE, URINE (UA) 1+ (NEGATIVE); KETONES,URINE NEGATIVE (NEGATIVE); LEUKOCYTE ESTERASE ,URINE NEGATIVE (NEGATIVE); NITRITE,URINE NEGATIVE (NEGATIVE); PROTEIN,URINE NEGATIVE (NEGATIVE)
[2022-09-18 21:58] LABS: BACTERIA,URINE TRACE /HPF
== END ==
LOC: LABNPT 07:00
PROVIDERS: ATTEND Nurse Practitioner
DX: Z01.89 Encounter for other specified special examinations (principal)
CPT/HCPCS: 81000

== ENCOUNTER 2022-09-26 11:56 | Emergency (ER) | payer MEDICAID | END 2022-09-26 12:04 | disposition left against medical advice (07) | LOC: EDUNIT# 11:56 → ER 11:59 | DX: Z76.0 Encounter for issue of repeat prescription (principal) ==

== ENCOUNTER → 2022-11-18 | Outpatient (CLI) | payer MEDICAID ==
--- NOTE | 2022-11-18 16:19 | Diagnostic Imaging Report ---
INDICATION: Swelling of the hand and finger. COMPARISON: None FINDINGS: Multiple radiographic views of the left hand were obtained and show acute oblique oriented fracture of the 3rd proximal phalanx. There is mild displacement of fracture fragments. There is no convincing evidence of intra-articular extension. Remaining osseous structures are intact. Joint spaces are maintained. No unexpected radiopaque foreign bodies are seen. IMPRESSION: 1. Acute fracture of the 3rd proximal phalanx, as above. Dictated by: Dictated on workstation # [id number]
== END ==
LOC: RAD 14:16
PROVIDERS: ATTEND Family Medicine
DX: S62.613A Displaced fracture of proximal phalanx of left middle finger, initial encounter for closed fracture (principal); X58.XXXA Exposure to other specified factors, initial encounter
CPT/HCPCS: 73130

== ENCOUNTER 2022-11-25 13:34 | Emergency (ER) | payer MEDICAID ==
[~2022-11-25] VITALS: Ht 152 cm; Wt 48.0 kg
[2022-11-25 13:44] VITALS: BP 124/81
[2022-11-25] MEDS ORDERED: BACITRACIN OINTMENT 28 GM TUBE TOP STA (14:05)
--- NOTE | 2022-11-25 14:14 | ED Upper Extremity ---
General Chief Complaint: Upper Extremity Stated Complaint: LT HAND INJ | Nursing Triage Note: BROKEN LEFT HAND LAST WEEK. BLISTERS APPEARED ON HANDS ON TUESDAY. Source: patient, family Exam Limitations: no limitations History of Present Illness Date Seen by Provider: November 25, 2022 Time Seen by Provider: 13:57 Initial Comments Here with blisters to the left third and fourth finger. Apparently he broke his middle finger last week and was seen by orthopedics. They were unable to get a cast in place and so did wrap his fingers with Coban. Apparently he had swellin g and the mother feels like it was probably too tight. He subsequently developed blisters which have popped. She is worried about infection. No red streaks up the hand or arm and no foul-smelling drainage but he has denuded blisters on the fingers of the third and fourth finger. The third finger is quite swollen. No other issues or concerns noted or reported. Patient has sign ificant MR and has 2 care workers with him as well as the mother. Onset: last week Severity: moderate Pain/Injury Location: left 3rd finger, left 4th finger Method of Injury: unknown Modifying Factors: Improves With Immobilization; Worse With Movement Allergies and Home Medications Allergies Coded Allergies: No Known Drug Allergies (Unverified , 01/13/19) Patient Home Medication List Home Medication List Reviewed: Yes Acetaminophen (Tylenol Extra Strength) 500 Mg Tablet, 500 MG PO Q8H PRN for PAIN-MILD (1-4), (Reported) Entered as Reported by: KATHRYN BOLDEN on 02/11/20 1531 Azithromycin (Azithromycin) 250 Mg Tablet, 250 MG PO DAILY Prescribed by: AIDAN OCHOA on 02/12/20 1035 Calcium Polycarbophil (Fiber Tabs) 625 Mg Tablet, 625 MG PO DAILY PRN for CONSTIPATION, (Reported) Entered as Reported by: KATHRYN BOLDEN on 02/11/20 1531 Carbamazepine (Carbamazepine) 100 Mg Tab.chew, 300 MG PO BID, (Reported) Entered as Reported by: KATHRYN BOLDEN on 02/11/20 1531 Carbamazepine (Carbamazepine) 100 Mg/5 Ml Oral.susp, 300 MG PO BID Prescribed by: SHAE WHITE on 06/27/22 1410 Cephalexin (Keflex) 500 Mg Capsule, 500 MG PO BID Prescribed by: AIDAN OCHOA on 02/12/20 1035 Cephalexin (Cephalexin) 250 Mg/5 Ml Susp.recon, 500 MG PO TID Prescribed by: CONG MILLARD on 11/25/22 1445 Diphenhydramine HCl (Benadryl) 25 Mg Capsule, 25 MG PO Q6H PRN for ALLERGY SYMPTOMS, (Reported) Entered as Reported by: KATHRYN BOLDEN on 02/11/20 153 Docusate Sodium (Docusate Sodium) 100 Mg Capsule, 100 MG PO BID, (Reported) Entered as Reported by: LEONIDES MILLER on 02/13/19 1428 Guaifenesin (Guaifenesin) 100 Mg/5 Ml Liquid, 100 MG PO Q8H PRN for CONGESTION, (Reported) Entered as Reported by: KATHRYN BOLDEN on 02/11/20 153 Lactulose (Lactulose) 10 Gm/15 Ml Solution, 30 ML PO DAILY, (Reported) Entered as Reported by: KATHRYN BOLDEN on 02/11/20 153 Melatonin (Melatonin) 3 Mg Tablet, 3 MG PO HS, (Reported) Entered as Reported by: KATHRYN BOLDEN on 02/11/20 153 Mirtazapine (Mirtazapine) 15 Mg Tablet, 15 MG PO HS, (Reported) Entered as Reported by: KATHRYN BOLDEN on 02/11/20 153 Polyethylene Glycol 3350 (Miralax) 17 Gm Powd.pack, 17 GM PO BID, (Reported) Entered as Reported by: KATHRYN BOLDEN on 02/11/20 153 Polyethylene Glycol 3350 (Miralax) 17 Gram Powd.pack, 17 GM PO DAILY Prescribed by: Karen Miller on 09/16/222101 Psyllium Husk/Ca Carbonate (Metamucil Plus Calcium Capsule) 1 Each Capsule, 1 EACH PO DAILY PRN for CONSTIPATION, (Reported) Entered as Reported by: KATHRYN BOLDEN on 02/11/20 153 Sulfamethoxazole/Trimethoprim (Bactrim Ds Tablet) 1 Each Tablet, 1 EACH PO BID Prescribed by: DRISS CAMPEBLL on 10/15/20 1406 Tramadol HCl (Tramadol HCl) 50 Mg Tablet, 50 MG PO TID, (Reported) Entered as Reported by: KATHRYN BOLDEN on 02/11/20 1531 Valproic Acid (As Sodium Salt) (Valproic Acid) 250 Mg/5 Ml Solution, 10 ML PO Q8H, (Reported) Entered as Reported by: KATHRYN BOLDEN on 02/11/20 153 Review of Systems Constitutional: see HPI; No chills, No fever Respiratory: no symptoms reported Cardiovascular: no symptoms reported Musculoskeletal: joint pain, joint swelling, muscle pain Skin: lesions Past Mqmtgxc-Ivgtgn-Ptrnsw Hx Patient Social History Tobacco Use?: No Substance use?: No Alcohol Use?: No Immunizations Up To Date Tetanus Booster (TDap): Unknown First/Initial COVID19 Vaccinat: YES Second COVID19 Vaccination Jus: YES Seasonal Allergies Seasonal Allergies: No Past Medical History Surgery/Hospitalization HX: PMH: DM, DUBOWITZ SYNDROME, SEIZURES, MR, MOSTLY NONVERBAL. 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 1.0oz. 44.888274ue; 20.00 BMI Method:Estimated General Appearance: WD/WN, no apparent distress Hand: Left, deformity, limited ROM, soft tissue tenderness, stiffness, swelling Neurologic/Psychiatric: alert, normal mood/affect Skin: warm/dry, other (Blisters, open to left 3rd and 4th finger with noted swelling. ) Procedures/Interventions Suture Size: 4-0 Progress/Results/Core Measures Results/Orders My Orders Orders - CONG MILLARD MD Bacitracin Ointment (Bacitracin Ointment (11/25/22 14:05) Vital Signs/I&O 11/25/22 13:44 Pulse 100 Resp 16 B/P (MAP) 124/81 (95) Pulse Ox 95 O2 Delivery Room Air Blood Pressure Mean: 95 Progress Progress Note : Progress Note Seen and evaluated. Wounds cleaned by nursing. Covered with bacitracin o intment and dressing. Mother will follow-up with orthopedics again. Unsure if this is Coban reaction, fracture blister, reaction to tight wrapping or combination of above. We will do loose wrap and bacitracin ointment. There is significant swelling of the third and fourth finger and that is preventing movement at this point. This was discussed with the mother who agrees. We will go ahead and initiate oral antibiotics given patient's underlying MR status and difficulty with cleaning wounds. Discharged home with return precautions. Mother verbalized understanding instructions and agreement with plan. Departure Impression Primary Impression: Open wound of left hand Qualified Codes: S61.402A - Unspecified open wound of left hand, initial encounter Disposition: HOME, SELF-CARE Condition: Improved Departure-Patient Inst. Decision time for Depature: 14:39 Referrals: ALEJO RANDLE DO (PCP/Family) Primary Care Physician Patient Instructions: Finger Fracture (DC), Wound Care ED Add. Discharge Instructions: All discharge instructions reviewed with patient and/or family. Voiced understanding. Use bacitracin antibiotic ointment to wounds on hand twice daily for the next 5- 7 days or so. You may cover with gauze and soft gauze wrap to each finger individually. Follow-up with orthopedics next week for recheck and further evaluation. You may follow-up with your doctor as well. Take antibiotics as directed. Return for fever, redness of the hand and arm, increased swelling, foul-smelling drainage or other concerns as needed. Scripts Cephalexin (Cephalexin) 250 Mg/5 Ml Susp.recon 500 MG PO TID for 7 Days, #210 ML 0 Refills Prov: CONG MILLARD MD 11/25/22 Copy Copies To 1: ALEJO RANDLE TIMOTHY D MD November 25, 2022 14:14
[2022-11-25] MEDS ORDERED: CEPH250S PO (14:45)
== END 2022-11-25 14:48 | disposition home or self-care (01) ==
LOC: EDUNIT# 13:34 → ER 13:36
DX: S61.203A Unspecified open wound of left middle finger without damage to nail, initial encounter (principal); S61.205A Unspecified open wound of left ring finger without damage to nail, initial encounter; E11.9 Type 2 diabetes mellitus without complications; Z79.4 Long term (current) use of insulin; X58.XXXA Exposure to other specified factors, initial encounter
CPT/HCPCS: 99281

== ENCOUNTER → 2022-11-29 | Outpatient (CLI) | payer MEDICAID ==
[~2022-11-29] MED LIST changes: +CEPH250S PO
[2022-11-29 09:24] LABS: BASOPHILS % (AUTO) 0 % (0-10); EOSINOPHILS # (AUTO) 0.1 10^3/uL (0.0-0.3); EOSINOPHILS % (AUTO) 2 % (0-10); HEMATOCRIT 39 % (40-54); HEMOGLOBIN 13.1 g/dL (13.3-17.7); LYMPHOCYTES # (AUTO) 2.4 10^3/uL (1.0-4.0); LYMPHOCYTES % (AUTO) 35 % (12-44); MEAN CORPUSCULAR HEMOGLOBIN 33 pg (25-34); MEAN CORPUSCULAR HGB CONC 34 g/dL (32-36); MEAN CORPUSCULAR VOLUME 98 fL (80-99); MEAN PLATELET VOLUME 8.8 fL (9.0-12.2); MONOCYTES # (AUTO) 0.5 10^3/uL (0.0-1.0); MONOCYTES % (AUTO) 7 % (0-12); NEUTROPHILS # (AUTO) 3.8 10^3/uL (1.8-7.8); NEUTROPHILS % (AUTO) 56 % (42-75); PLATELET COUNT 226 10^3/uL (130-400); WHITE BLOOD COUNT 6.9 10^3/uL (4.3-11.0)
[2022-11-29 09:44] LABS: ALBUMIN 4.1 GM/DL (3.2-4.5); BILIRUBIN,TOTAL 0.3 MG/DL (0.1-1.0); CALCIUM 9.3 MG/DL (8.5-10.1); CREATININE SERUM 0.98 MG/DL (0.60-1.30); POTASSIUM 4.4 MMOL/L (3.6-5.0); TOTAL PROTEIN 7.5 GM/DL (6.4-8.2)
[2022-11-29 09:48] LABS: ERYTHROCYTE SEDIMENTATION RATE 17 MM/HR (0-15)
== END ==
LOC: WOUNDCARE 08:18
PROVIDERS: ATTEND Family Medicine
DX: L98.492 Non-pressure chronic ulcer of skin of other sites with fat layer exposed (principal); R60.0 Localized edema; S62.603A Fracture of unspecified phalanx of left middle finger, initial encounter for closed fracture; F72 Severe intellectual disabilities; X83.8XXD Intentional self-harm by other specified means, subsequent encounter; E11.9 Type 2 diabetes mellitus without complications
CPT/HCPCS: 80053; 83036; 85025; 85652; 86141; 97597; G0463; 36415

== ENCOUNTER → 2022-12-07 | Outpatient (CLI) | payer MEDICAID | LOC: WOUNDCARE 10:57 | PROVIDERS: ATTEND Family Medicine | DX: S62.603A Fracture of unspecified phalanx of left middle finger, initial encounter for closed fracture (principal); L98.492 Non-pressure chronic ulcer of skin of other sites with fat layer exposed; F72 Severe intellectual disabilities; X83.8XXD Intentional self-harm by other specified means, subsequent encounter; E11.52 Type 2 diabetes mellitus with diabetic peripheral angiopathy with gangrene; A49.01 Methicillin susceptible Staphylococcus aureus infection, unspecified site; R60.0 Localized edema | CPT/HCPCS: 11042; G0463 ==

== ENCOUNTER → 2022-12-14 | Outpatient (CLI) | payer MEDICAID | LOC: WOUNDCARE 11:06 | PROVIDERS: ATTEND Family Medicine | DX: S62.623A Displaced fracture of middle phalanx of left middle finger, initial encounter for closed fracture (principal); L98.492 Non-pressure chronic ulcer of skin of other sites with fat layer exposed; R60.0 Localized edema; F72 Severe intellectual disabilities; X83.8XXA Intentional self-harm by other specified means, initial encounter; E11.9 Type 2 diabetes mellitus without complications; A49.01 Methicillin susceptible Staphylococcus aureus infection, unspecified site; E11.52 Type 2 diabetes mellitus with diabetic peripheral angiopathy with gangrene | CPT/HCPCS: 11042; G0463 ==

== ENCOUNTER → 2022-12-21 | Outpatient (CLI) | payer MEDICAID | LOC: WOUNDCARE 13:28 | PROVIDERS: ATTEND Family Medicine | DX: L98.492 Non-pressure chronic ulcer of skin of other sites with fat layer exposed (principal); R60.0 Localized edema; S62.603A Fracture of unspecified phalanx of left middle finger, initial encounter for closed fracture; F72 Severe intellectual disabilities; X83.8XXA Intentional self-harm by other specified means, initial encounter; A49.01 Methicillin susceptible Staphylococcus aureus infection, unspecified site; E11.52 Type 2 diabetes mellitus with diabetic peripheral angiopathy with gangrene | CPT/HCPCS: 99213 ==

== ENCOUNTER → 2022-12-28 | Outpatient (CLI) | payer MEDICAID | LOC: WOUNDCARE 13:49 | PROVIDERS: ATTEND Family Medicine | DX: L98.492 Non-pressure chronic ulcer of skin of other sites with fat layer exposed (principal); R60.0 Localized edema; S62.603A Fracture of unspecified phalanx of left middle finger, initial encounter for closed fracture; F72 Severe intellectual disabilities; X83.8XXD Intentional self-harm by other specified means, subsequent encounter; B95.62 Methicillin resistant Staphylococcus aureus infection as the cause of diseases classified elsewhere; E11.52 Type 2 diabetes mellitus with diabetic peripheral angiopathy with gangrene; I96 Gangrene, not elsewhere classified | CPT/HCPCS: 99212 ==